=== PATIENT | male | born 1965 | race Caucasian/White ===

== ENCOUNTER 2017-07-29 10:06 | Emergency (ER) | payer OTHER, SELFPAY ==
[2017-07-29] VITALS (15 sets, daily range): BP systolic 101–127; BP diastolic 67–101; PULSE 79–140; RESP 11–23; TEMP 36.7; O2SAT 94–99
--- NOTE | 2017-07-29 10:21 | ED_ITS ---
HPI - Chest Pain General Chief Complaint: Chest Pain Stated Complaint: CHEST PRESSURE Time Seen by Provider: 07/29/17 10:21 Source: patient and family Mode of arrival: ambulatory Limitations: no limitations History of Present Illness HPI narrative: 52-year-old male presents with mild chest discomfort, palpitations, mild nausea and dizziness that began at 4:00 a.m. shortly after he awakened. He states it feels like atrial fibrillation. It happened previously to him about 5 years ago, when he reports his heart rate was elevated above 200 and he required a cardioversion. This morning he tried to cough and tried some Valsalva maneuvers without success. Has previous episode of AFib he had a subsequent angiogram which reportedly returned normal. He was started on omeprazole, because they told him his esophagus could have irritated his heart. He is being treated with medications for blood pressure and diabetes. He is not on a blood thinner. He rates his chest pain at 2/10 and states it feels like more of a mild discomfort. Denies diaphoresis or shortness of breath. Related Data Home Medications Medication Instructions Recorded Confirmed hydrochlorothiazide 25 mg PO QDAY #0 09/21/16 07/29/17 liraglutide [Victoza 2-Lanre] 1.8 mg SQ QAM #0 09/21/16 07/29/17 losartan 50 mg PO QDAY #0 09/21/16 07/29/17 melatonin 20 mg PO HS PRN #0 09/21/16 07/29/17 metformin [Glucophage] 2 tab PO BID #0 09/21/16 07/29/17 omeprazole 20 mg PO PRN PRN #0 09/21/16 07/29/17 Previous Rx's Medication Instructions Recorded aspirin 81 mg PO BID #60 tab 10/14/16 Allergies Allergy/AdvReac Type Severity Reaction Status Date / Time Penicillins [PENICILLINS] Allergy RASH Verified 07/29/17 10:22 Review of Systems Review of Systems All systems reviewed & are unremarkable except as noted in HPI and below Constitutional Denies chills, Denies fever(s), Denies lethargy and Denies weakness Eyes Denies change in vision, Denies eye discharge, Denies irritation and Denies loss of vision ENT Ears, Nose, Mouth, and Throat: Denies change in voice, Denies neck pain and Denies sore throat Cardiovascular Reports chest pain, Denies irregular heart rhythm, Reports lightheadedness, Reports palpitations, Denies dyspnea, Denies dyspnea on exertion and Denies orthopnea Respiratory Denies cough, Denies dyspnea, Denies dyspnea on exertion and Denies wheezing Gastrointestinal Gastrointestinal: Denies abdominal pain, Denies change in bowel habits, Denies diarrhea, Reports nausea and Denies vomiting Genitourinary Denies hematuria, Denies flank pain, Denies urinary incontinence and Denies urinary urgency Musculoskeletal Denies neck pain Integumentary/Breasts Denies pruritus, Denies erythema, Denies rash and Denies wounds Neurologic Denies confusion, Denies loss of vision and Denies weakness Psychiatric Denies anxiety, Denies confusion, Denies depression, Denies homicidal ideation and Denies suicidal ideation Endocrine Reports palpitations Hematologic/Lymphatic Denies easy bruising Allergic/Immunologic Denies wheezing [facility] Social History Smoking Status: Never smoker Exam Initial Vital Signs Initial Vital Signs: Vital Signs Temperature 98.0 F 07/29/17 10:10 Pulse Rate 140 H 07/29/17 10:10 Respiratory Rate 20 07/29/17 10:10 Blood Pressure 120/78 07/29/17 10:10 Pulse Oximetry 98 07/29/17 10:10 Const General: cooperative and well developed Nutritional Appearance: well nourished Orientation: alert, awake, oriented x3 and not confused [facility] Head: normocephalic and atraumatic Ears: external ears normal and TM's normal bilaterally Nose: external nose normal and No nasal discharge Face and sinus: sinuses nontender, face symmetric, no sinus tenderness and No dry mucous membranes Mouth: oral mucosae normal and moist mucous membranes Teeth and gingiva: dentition normal Throat: tonsils normal and uvula midline Eyes General: appearance normal, both eyes and all related structures Eyelids: eyelids normal Conjunctivae: conjunctivae normal Sclera: sclerae normal Pupils: PERRL EOM: EOM intact bilaterally Neck Neck: normal visual inspection, trachea midline, No lymphadenopathy, No midline deformity and No JVD Lymphatic: No lymphedema Chest Chest: normal inspection of the chest Resp Effort & Inspection: normal respiratory effort, able to speak in complete sentences, no respiratory distress and no use of accessory muscles Auscultation: clear to auscultation bilaterally, no rales, no rhonchi and no wheezes Cardio Rhythm: abnormal rhythm (Tachycardia) irregularly irregular Heart Sounds: no click, no gallops, no murmurs and no rubs Pulses: normal peripheral pulses GI Inspection: non-distended Palpation: soft, no hepatosplenomegaly, No guarding, No pulsatile mass and No tender Auscultation: normal bowel sounds Back/Spine/Pelvis Back: No CVA tenderness Cervical Spine: cervical ROM normal and No pain with cervical ROM Thoracic/Lumbar Spine: thoracic and lumbar spine normal to inspection Skin General: no rashes or lesions noted, No jaundice and No petechiae Neuro General: alert, oriented x3, gait normal and no focal motor deficits Speech: speech normal Extrem General: full ROM, no clubbing, cyanosis or edema, no pedal edema and no calf tenderness Psych Appearance: well kempt Mental Status: mental status grossly normal Attitude: cooperative Thought Content: normal and suicidality Judgment: judgment good Procedures Procedural Sedation Indication: cardioversion Presedation Evaluation: ASA Class: II Mallampati Airway Classification: Class II Preparation: security monitor applied, pulse oximeter, capnometry used, suction/ airway equipment at bedside and IV secured IV Propofol dose (mg): 160 ED Sedation Level: Moderate (Concious) Patient Tolerated Procedure: Well and No complications Complications: none Additional Comments: Biphasic cardioversion at 100 joules was successful on the 1st attempt. Repeat EKG shows sinus rhythm Course Orders Ordered: ED Orders 07/29/17 10:17 Complete Blood Count AUTO DIFF Stat Comprehensive Metabolic Panel Stat Lipase Stat Thyroid Stimulating Hormone Stat Troponin with CK Cardiac Panel Stat 07/29/17 10:23 XR chest 1V Stat 07/29/17 12:18 Troponin I Stat Discontinued Medications Aspirin (Aspirin Chew) 324 mg PO NOW ONE Stop: 07/29/17 10:24 Last Admin: 07/29/17 10:35 Dose: 243 mg Diltiazem HCl (Cardizem) 20 mg IV NOW ONE Stop: 07/29/17 10:30 Last Admin: 07/29/17 10:31 Dose: 20 mg Propofol (Diprivan) 100 mg IV NOW ONE Stop: 07/29/17 10:50 Last Admin: 07/29/17 11:14 Dose: 100 mg Propofol (Diprivan) 60 mg IV NOW ONE Stop: 07/29/17 11:23 Last Admin: 07/29/17 11:22 Dose: 60 mg Reevaluation(s) Reevaluation #1: Patient feeling better. Reviewed plan for repeat troponin and need for close follow-up and likely echocardiogram. Time: 11:50 Vital Signs - 8 hr 07/29/17 10:10 07/29/17 10:14 07/29/17 10:22 Temperature 98.0 F 98.0 F Pulse Rate 140 H 140 H 138 H Respiratory Rate 20 20 23 Blood Pressure 120/78 Blood Pressure [Left Arm] 127/101 H 120/78 Pulse Oximetry 98 98 99 07/29/17 10:45 07/29/17 11:00 07/29/17 11:16 Temperature Pulse Rate 102 H 96 H 124 H Respiratory Rate 15 21 21 Blood Pressure Blood Pressure [Left Arm] 117/74 109/78 110/79 Pulse Oximetry 98 97 96 07/29/17 11:26 07/29/17 11:36 07/29/17 11:42 Temperature Pulse Rate 94 H 87 81 Respiratory Rate 15 19 16 Blood Pressure Blood Pressure [Left Arm] 110/69 110/74 110/74 Pulse Oximetry 94 97 97 07/29/17 11:47 07/29/17 12:08 07/29/17 12:31 Temperature Pulse Rate 120 H 80 79 Respiratory Rate 22 13 11 L Blood Pressure Blood Pressure [Left Arm] 105/67 101/71 Pulse Oximetry 97 97 07/29/17 13:06 Temperature Pulse Rate 86 Respiratory Rate 12 Blood Pressure Blood Pressure [Left Arm] 107/80 Pulse Oximetry 97 MDM - Chest Pain Lab Data Result diagrams: 07/29/17 10:17 07/29/17 10:17 Lab Results 07/29/17 07/29/17 07/29/17 Range/Units 10:17 10:17 10:17 WBC 10.4 (4.5-11.0) X10^3/uL RBC 4.79 (4.5-5.9) X10^6/uL Hgb 15.3 (13.5-17.5) g/dL Hct 44.6 (41-53) % MCV 93.0 (80-100) fL MCH 32.0 (26-34) PG MCHC 34.4 (30-36) % RDW 12.8 (11.6-14.8) % Plt Count 246 (150-400) X10^3/uL Neut % (Auto) 56.9 (50-75) % Lymph % (Auto) 32.6 (25-40) % [place] % (Auto) 8.2 (3-14) % Eos % (Auto) 1.8 L (2-4) % Baso % (Auto) 0.5 (0-2) % Neut # (Auto) 5900 (3852-2883) /uL Sodium 138 (137-145) mmol/L Potassium 4.3 (3.4-5.1) mmol/L Chloride 96 L (98-107) mmol/L Carbon Dioxide 29 (22-32) mmol/L BUN 18 (9-20) mg/dL Creatinine 0.80 (0.66-1.25) mg/dL Estimated GFR > 60.0 (>60) mL/min BUN/Creatinine Ratio 22.5 H (6-22) Glucose 369 H (70-100) mg/dL Calcium 9.9 (8.4-10.2) mg/dL Total Bilirubin 0.6 (0.2-1.3) mg/dL AST 31 (17-59) IU/L ALT 43 (21-72) IU/L Alkaline Phosphatase 157 H (38-126) U/L Total Creatine Kinase 151 (55-170) U/L CK-MB (CK-2) 1.75 (<2.37) ng/mL CK-MB (CK-2) Rel Index 1.2 L (1.5-5.0) % Troponin I < 0.012 (0.01-0.034) ng/mL Total Protein 7.8 (6.3-8.2) g/dL Albumin 4.3 (3.5-5.0) g/dL Globulin 3.5 (1.7-4.1) g/dL Albumin/Globulin Ratio 1.2 (1.0-2.8) Lipase 170 (23-300) U/L TSH 1.17 (0.47-4.68) uIU/mL 07/29/17 Range/Units 12:18 WBC (4.5-11.0) X10^3/uL RBC (4.5-5.9) X10^6/uL Hgb (13.5-17.5) g/dL Hct (41-53) % MCV (80-100) fL MCH (26-34) PG MCHC (30-36) % RDW (11.6-14.8) % Plt Count (150-400) X10^3/uL Neut % (Auto) (50-75) % Lymph % (Auto) (25-40) % [place] % (Auto) (3-14) % Eos % (Auto) (2-4) % Baso % (Auto) (0-2) % Neut # (Auto) (8481-4820) /uL Sodium (137-145) mmol/L Potassium (3.4-5.1) mmol/L Chloride (98-107) mmol/L Carbon Dioxide (22-32) mmol/L BUN (9-20) mg/dL Creatinine (0.66-1.25) mg/dL Estimated GFR (>60) mL/min BUN/Creatinine Ratio (6-22) Glucose (70-100) mg/dL Calcium (8.4-10.2) mg/dL Total Bilirubin (0.2-1.3) mg/dL AST (17-59) IU/L ALT (21-72) IU/L Alkaline Phosphatase (38-126) U/L Total Creatine Kinase (55-170) U/L CK-MB (CK-2) (<2.37) ng/mL CK-MB (CK-2) Rel Index (1.5-5.0) % Troponin I < 0.012 (0.01-0.034) ng/mL Total Protein (6.3-8.2) g/dL Albumin (3.5-5.0) g/dL Globulin (1.7-4.1) g/dL Albumin/Globulin Ratio (1.0-2.8) Lipase (23-300) U/L TSH (0.47-4.68) uIU/mL Imaging Data Chest x-ray: Radiologist's impression: PROCEDURE: XR CHEST 1V INDICATIONS: 52 year-old male with atrial fibrillation and palpitations. TECHNIQUE: One view of the chest was acquired. COMPARISON: [facility], , CHEST 1VW (PORTABLE), 04/12/2011, 22:39. FINDINGS: Surgical changes and devices: None. Lungs and pleura: No pleural effusions or pneumothorax. Lungs are clear. Lung volumes are decreased. Mediastinum: Mediastinal contours appear normal. Heart size is normal. Bones and chest wall: No suspicious bony lesions. There is bilateral acromioclavicular joint degeneration. Overlying soft tissues appear unremarkable. IMPRESSION: Decreased lung volumes, without acute cardiopulmonary disease. Dictated by: Ej Beltran M.D. on 07/29/2017 at 10:35 Approved by: Ej Beltran M.D. on 07/29/2017 at 10:36 ECG Data Attestation: I personally reviewed and interpreted this ECG as follows: Prior ECG tracings: available for review Interpretation: EKG performed at 10:10 a.m. shows atrial fibrillation with rapid ventricular response, rate of 138. No ST elevation or depression noted. When compared with 10/05/2016, atrial fibrillation has replaced sinus rhythm EKG repeated at 1129 shows sinus rhythm with a rate of 89. No ST elevation or depression. No ischemia. When compared with previous sinus rhythm has replaced atrial fibrillation MDM Narrative Medical decision making narrative: 52-year-old male with history of diabetes presents with atrial fibrillation with rapid ventricular response that started acutely at around 4:00 a.m. this morning. He was not medically unstable but was significantly uncomfortable. As he had been in atrial fibrillation for less than 48 hr, he was cardioverted successfully here. He was monitored for approximately 2 hr after cardioversion and repeat troponin was checked returning negative. No obvious triggers for his atrial fibrillation or noted. His chads Vasc score is 0 so he does not need anticoagulation. Advised follow- up with PCP and echocardiogram might be of value. TSH was negative here. Return precautions were given. Discharge Plan Departure Patient Disposition: Home, Self-Care Clinical Impression: Atrial fibrillation with rapid ventricular response, Chest pain, Hyperglycemia Instructions: DI for Atrial Fibrillation Activity Restrictions/Additional Instructions: Thank you for trusting as with your care today. You were successfully cardioverted back to sinus rhythm. No cause for your atrial fibrillation was identified, but you need to have an echocardiogram in follow-up and potentially other tests as determined by your primary care provider and possibly a electrical continuity inspector. Return to the ER for new or worsening symptoms. See your primary care provider within 1 week for re-evaluation. Prescriptions: No Action metformin [Glucophage] 500 MG tablet 2 tab PO BID Qty: 0 RF: 0 liraglutide [Victoza 2-Lanre] 0.6 MG/0.1 ML pen injector 1.8 mg SQ QAM Qty: 0 RF: 0 losartan 50 MG tablet 50 mg PO QDAY Qty: 0 RF: 0 hydrochlorothiazide 25 MG tablet 25 mg PO QDAY Qty: 0 RF: 0 melatonin 10 MG capsule 20 mg PO HS PRN (Reason: Sleep) Qty: 0 RF: 0 omeprazole 20 MG capsule,delayed release(DR/EC) 20 mg PO PRN PRN (Reason: Acid Reflux) Qty: 0 RF: 0 aspirin 81 MG tablet,delayed release (DR/EC) 81 mg PO BID Qty: 60 RF: 0
[2017-07-29] MEDS: dilTIAZem 25 MG/5 ML SDV 20 MG IV (10:31)
[2017-07-29 10:33] LABS: Add Manual Diff / Slide Review NO; Basophils Percent Auto 0.5 % (0-2); Eosinophils Percent Auto 1.8 % (2-4); Hematocrit 44.6 % (41-53); Hemoglobin 15.3 g/dL (13.5-17.5); Lymphocytes Percent Auto 32.6 % (25-40); Mean Corpuscular HGB Conc 34.4 % (30-36); Monocytes Percent Auto 8.2 % (3-14); Neutrophils Absolute Auto 5900 /uL (3000-5900); Neutrophils Percent Auto 56.9 % (50-75); Platelet Count 246 X10^3/uL (150-400); Red Blood Cell Count 4.79 X10^6/uL (4.5-5.9); Red Cell Distribution Width 12.8 % (11.6-14.8); White Blood Cell Count 10.4 X10^3/uL (4.5-11.0)
[2017-07-29] MEDS: ASPIRIN 81 MG TAB 324 MG PO (10:35)
--- NOTE | 2017-07-29 10:37 | PC.NURSE ---
reports, woke up with afib at 4am, with deep breathing with chest preassure 04/03.
[2017-07-29 10:41] LABS: Alanine Aminotransferase 43 IU/L (21-72); Albumin 4.3 g/dL (3.5-5.0); Albumin Globulin Ratio 1.2 (1.0-2.8); Alkaline Phosphatase 157 U/L (38-126); Aspartate Aminotransferase 31 IU/L (17-59); BUN Creatinine Ratio 22.5 (6-22); Bilirubin Total 0.6 mg/dL (0.2-1.3); Blood Urea Nitrogen 18 mg/dL (9-20); Calcium 9.9 mg/dL (8.4-10.2); Carbon Dioxide 29 mmol/L (22-32); Chloride 96 mmol/L (98-107); Creatine Kinase 151 U/L (55-170); Estimated Glomerular Filt Rate > 60.0 mL/min (>60); Globulin 3.5 g/dL (1.7-4.1); Glucose 369 mg/dL (70-100); HEMOLYSIS 17 (0-50); Lipase 170 U/L (23-300); Potassium 4.3 mmol/L (3.4-5.1); Sodium 138 mmol/L (137-145); Total Protein 7.8 g/dL (6.3-8.2)
[2017-07-29 10:57] LABS: CKMB % Relative Index 1.2 % (1.5-5.0); Creatine Kinase MB 1.75 ng/mL (<2.37)
[2017-07-29 10:59] LABS: Troponin I < 0.012 ng/mL (0.01-0.034)
[2017-07-29] MEDS: PROPOFOL 200 MG/20 ML VIAL 100 MG IV (11:14)
[2017-07-29 11:19] LABS: Thyroid Stimulating Hormone 1.17 uIU/mL (0.47-4.68)
[2017-07-29] MEDS: PROPOFOL 200 MG/20 ML VIAL 60 MG IV (11:22)
--- NOTE | 2017-07-29 11:44 | PC.NURSE ---
AT 1122 cardiovertion sync, 100joules x1, pt converted to nsr , pt recieved total 160mg propofol iv by dr saleh, pt with good response, and pt recovered easily. spouse at bs. now pt states, feeling much better and I didnt remember anything
[2017-07-29 12:49] LABS: Troponin I < 0.012 ng/mL (0.01-0.034)
== END 2017-07-29 13:52 | disposition home or self-care (01) ==
PROVIDERS: Emergency Provider Emergency Medicine; PCP Specialist
DX: I48.91 Unspecified atrial fibrillation (principal); R07.9 Chest pain, unspecified; R73.9 Hyperglycemia, unspecified
CPT/HCPCS: 36415; 36591; 71045; 80053; 82550; 82553; 83690; 84443; 84484; 85025; 92960; 93005; 93041; 94770; 99152; 99285; J2704

== ENCOUNTER 2018-04-05 02:16 | Observation (INO) | payer OTHER, SELFPAY ==
[2018-04-05] VITALS (13 sets, daily range): BP systolic 115–145; BP diastolic 71–90; PULSE 70–94; RESP 12–20; TEMP 36.5–36.9; O2SAT 93–97; BMI 33.0
--- NOTE | 2018-04-05 02:18 | DI.RAD.S_ITS ---
PROCEDURE: XR CHEST 1V INDICATIONS: chest pain TECHNIQUE: One view of the chest was acquired. COMPARISON: [facility], CR, XR CHEST 1V, 07/29/2017, 10:28. FINDINGS: Surgical changes and devices: None. Lungs and pleura: Lungs are clear. No pleural effusions or pneumothorax. Mediastinum: Mediastinal contours appear normal. Heart size is normal. Bones and chest wall: No suspicious bony lesions. Overlying soft tissues appear unremarkable. IMPRESSION: No acute disease. Dictated by: Dedrick Arroyo M.D. on 04/05/2018 at 7:37 Approved by: Dedrick Arroyo M.D. on 04/05/2018 at 7:38
--- NOTE | 2018-04-05 02:19 | ED_ITS ---
HPI - Chest Pain General Chief Complaint: Chest Pain Stated Complaint: chest pain sudden onset raidates to back Time Seen by Provider: 04/05/18 02:18 Source: patient Mode of arrival: ambulatory Limitations: no limitations History of Present Illness HPI narrative: Patient is a 52-year-old male with history of paroxysmal atrial fibrillation and [id number] diabetes here for evaluation of a sudden onset of bilateral lower chest pain that radiates to his back. Patient states that it feels like somebody is lifting him up from under his ribcage. Does radiate to his back. No shortness of breath. He states that he does feel like that maybe he had similar symptoms yesterday with a went away on his own. Has never had anything prior to that. Has not tried anything for symptoms. Does have nausea but no vomiting. Related Data Home Medications Medication Instructions Recorded Confirmed hydrochlorothiazide 25 mg PO QDAY #0 09/21/16 07/29/17 liraglutide [Victoza 2-Lanre] 1.8 mg SQ QAM #0 09/21/16 07/29/17 losartan 50 mg PO QDAY #0 09/21/16 07/29/17 melatonin 20 mg PO HS PRN #0 09/21/16 07/29/17 metformin [Glucophage] 2 tab PO BID #0 09/21/16 07/29/17 omeprazole 20 mg PO PRN PRN #0 09/21/16 07/29/17 insulin glargine 28 unit SUBCUT DAILY 04/05/18 04/05/18 Allergies Allergy/AdvReac Type Severity Reaction Status Date / Time Penicillins [PENICILLINS] Allergy RASH Verified 07/29/17 10:22 Review of Systems Constitutional Denies fever(s) Cardiovascular Reports chest pain and Denies dyspnea Respiratory Denies cough and Denies dyspnea Gastrointestinal Gastrointestinal: Denies abdominal pain, Reports nausea and Denies vomiting Musculoskeletal Reports back pain, Denies myalgias and Denies arthralgias Integumentary/Breasts Denies rash Neurologic Denies behavioral changes Psychiatric Denies behavioral changes Hematologic/Lymphatic Denies easy bleeding and Denies easy bruising PFSH Medical History Diabetes (Acute) Gastroesophageal reflux disease (Acute) Hypertension (Acute) Paroxysmal atrial fibrillation (Acute) Social History Smoking Status: Never smoker Social History Smoking Status: Never smoker Exam Initial Vital Signs Initial Vital Signs: Vital Signs Temperature 97.7 F 04/05/18 02:18 Pulse Rate 88 04/05/18 02:18 Respiratory Rate 20 04/05/18 02:18 Blood Pressure 134/88 04/05/18 02:18 Pulse Oximetry 96 04/05/18 02:18 Const General: cooperative, comfortable, well developed, well groomed and No acute distress Orientation: alert, awake and oriented x3 HENMT Head: normal to inspection and normocephalic Chest Chest: normal inspection of the chest Resp Effort & Inspection: normal respiratory effort Auscultation: clear to auscultation bilaterally Cardio Rate: regular rate Rhythm: regular rhythm Pulses: radial pulses present GI Inspection: non-distended Palpation: soft, No firm and No tender Skin Lesions: no lesions Rashes: no rashes Neuro General: alert, awake and oriented x3 Extrem General: normal to inspection and capillary refill normal Psych Appearance: grossly normal and well kempt Scores HEART Score Heart Score history: Slightly Suspicious Heart Score EKG: Normal Heart Score Age: 45-64 years old Heart Score risk factors: 1-2 risk factors Heart Score troponin: < or = to normal limit Heart Score Total: 2 Course Orders Ordered: ED Orders 04/05/18 02:18 XR chest 1V Stat EKG-12 Lead Stat 04/05/18 02:25 CT angio chest abdomen Stat 04/05/18 02:30 Basic Metabolic Panel Stat Complete Blood Count AUTO DIFF Stat Hepatic (Liver) Panel Stat Lipase Stat Partial Thromboplastin Time Stat Prothrombin Time INR Stat Troponin I Stat 04/05/18 03:48 US abdomen complete Stat 04/05/18 05:31 Consult to General Surgery Routine Sodium Chloride (Normal Saline 0.9%) 1,000 mls @ 125 mls/hr IV CONT SANCHO Ceftriaxone Sodium/Dextrose (Rocephin) 1 gm in 50 mls @ 100 mls/hr IV NOW ONE Stop: 04/05/18 05:57 Morphine Sulfate (Morphine) 4 mg IV Q4HR PRN PRN Reason: Pain, Mild (1-3) Ondansetron HCl (Zofran) 4 mg IV Q4HR PRN PRN Reason: Nausea And Vomiting Discontinued Medications Aspirin (Aspirin Chew) 324 mg PO NOW ONE Stop: 04/05/18 02:25 Last Admin: 04/05/18 02:30 Dose: 324 mg Sodium Chloride (Normal Saline 0.9%) 1,000 mls @ 1,000 mls/hr IV BOLUS ONE Stop: 04/05/18 03:23 Last Admin: 04/05/18 02:30 Dose: 1,000 mls/hr Morphine Sulfate (Morphine) 4 mg IV NOW ONE Stop: 04/05/18 02:25 Last Admin: 04/05/18 02:30 Dose: 4 mg Ondansetron HCl (Zofran) 4 mg IV NOW ONE Stop: 04/05/18 02:34 Last Admin: 04/05/18 02:36 Dose: 4 mg Vital Signs - 8 hr 04/05/18 02:18 04/05/18 02:40 04/05/18 03:09 Temperature 97.7 F Pulse Rate 88 93 H 94 H Respiratory Rate 20 18 15 Blood Pressure 134/88 Blood Pressure [Left Arm] 132/74 135/81 Pulse Oximetry 96 97 97 04/05/18 04:00 04/05/18 05:07 Temperature Pulse Rate 72 71 Respiratory Rate 12 14 Blood Pressure Blood Pressure [Left Arm] 118/73 128/78 Pulse Oximetry 97 94 MDM - Chest Pain Lab Data Attestation: I reviewed the patient's lab results. Result diagrams: 04/05/18 02:30 04/05/18 02:30 Lab Results 04/05/18 04/05/18 04/05/18 Range/Units 02:30 02:30 02:30 WBC 9.7 (4.5-11.0) X10^3/uL RBC 4.73 (4.5-5.9) X10^6/uL Hgb 14.9 (13.5-17.5) g/dL Hct 45.4 (41-53) % MCV 95.9 (80-100) fL MCH 31.6 (26-34) PG MCHC 33.0 (30-36) % RDW 13.4 (11.6-14.8) % Plt Count 206 (150-400) X10^3/uL Neut % (Auto) 61.5 (50-75) % Lymph % (Auto) 27.6 (25-40) % [place] % (Auto) 8.6 (3-14) % Eos % (Auto) 1.7 L (2-4) % Baso % (Auto) 0.6 (0-2) % Neut # (Auto) 6000 (4555-6512) /uL Lymph # (Auto) 2700 (8581-7272) /uL [place] # (Auto) 800 (0-900) /uL Eos # (Auto) 200 (0-450) /uL Baso # (Auto) 100 (0-100) /uL PT 11.0 (10.1-12.7) SECONDS INR 1.0 (0.9-1.3) APTT 30 (26.4-36.2) SECONDS Sodium 139 (137-145) mmol/L Potassium 3.9 (3.4-5.1) mmol/L Chloride 98 (98-107) mmol/L Carbon Dioxide 28 (22-32) mmol/L BUN 20 (9-20) mg/dL Creatinine 0.80 (0.66-1.25) mg/dL Estimated GFR > 60.0 (>60) mL/min BUN/Creatinine Ratio 25.0 H (6-22) Glucose 150 H (70-100) mg/dL Calcium 9.6 (8.4-10.2) mg/dL Total Bilirubin 1.1 (0.2-1.3) mg/dL Conjugated Bilirubin 0.0 (0.0-0.3) md/dL Unconjugated Bilirubin 0.5 (0.0-1.1) mg/dL AST 191 H (17-59) IU/L ALT 138 H (21-72) IU/L Alkaline Phosphatase 100 (38-126) U/L Troponin I < 0.012 (0.01-0.034) ng/mL Total Protein 8.0 (6.3-8.2) g/dL Albumin 4.5 (3.5-5.0) g/dL Globulin 3.5 (1.7-4.1) g/dL Albumin/Globulin Ratio 1.3 (1.0-2.8) Lipase 187 (23-300) U/L Imaging Data Chest x-ray: Attestation: I personally reviewed and interpreted this imaging study as follows: My impression: No focal consolidations Normal size heart No pneumothorax CT abdomen pelvis with contrast: Radiologist's impression: Distended gallbladder with mild gallbladder wall thickening and pericholecystic fat induration. Findings likely represent acute cholecystitis. Mild bile duct dilation. Abdominal aorta is normal in caliber without dissection Multiple mildly dilated fluid-filled loops of small bowel without a transition point, most consistent with mild ileus. Right upper quadrant ultrasound: Radiologist's impression: Cholelithiasis with gallbladder wall thickening and a positive sonographic Kelly sign. Findings most consistent with acute c holecystitis. Common bile duct dilation to 9 mm. Mild gallbladder wall thickening measures 4.5 mm. Diffuse fatty infiltration of the liver ECG Data Attestation: I personally reviewed and interpreted this ECG as follows: Prior ECG tracings: not available for review Interpretation: Sinus rhythm Ventricular rate 80 for Normal axis Normal QRS Normal QTC no ST T wave changes MDM Narrative Medical decision making narrative: Patient's last meal was before midnight. He was given aspirin upon arrival. Initially given his back pain and epigastric and bilateral pain and the sudden onset the workup was initiated for cardiac or aortic dissection workup. Patient's EKG was unremarkable. The CT scan to [facility] for dissection revealed a dilated gallbladder and other findings concerning for cholecystitis with associated ileus. Right upper quadrant ultrasound confirmed this. Patient did feel better after morphine and Zofran. Discussed the case with Dr. Dubois with General surgery who will admit the caitlyn hamilton. Discussed admission with the patient who expressed understanding and agreement. Patient does have an allergy to penicillin so he was given Rocephin here in the emergency department. Discharge Plan Departure Patient Disposition: Admitted as Observation Clinical Impression: Acute cholecystitis
--- NOTE | 2018-04-05 02:25 | DI.CT.S_ITS ---
PROCEDURE: CT ANGIO CHEST ABDOMEN INDICATIONS: Sudden onset chest pain radiating to back TECHNIQUE: Precontrast 5 mm thick sections acquired from the lung apices to the iliac crests. After the administration of intravenous contrast, 2.5 mm thick sections again acquired from the lung apices to the iliac crests. 10 mm maximum intensity projection (MIP) oblique sagittal and coronal reformats were then acquired. For radiation dose reduction, the following was used: automated exposure control. COMPARISON: [facility], US, US ABDOMEN COMPLETE, 04/05/2018, 4:42. [facility], CR, XR CHEST 1V, 04/05/2018, 2:23. FINDINGS: Image quality: Excellent. AORTA: Noncontrast images demonstrate no evidence of intramural hematoma. The aorta is normal in caliber and contour without intimal flaps to suggest dissection. There is a three-vessel arch that demonstrates conventional branching. The visualized great vessels appear normal in caliber and patent. The celiac, superior mesenteric, and intramesenteric arteries appear patent. There are single renal arteries bilaterally which also appear patent. CHEST: Lungs and pleura: There is mild dependent atelectasis. No pleural effusions or pneumothorax. Central and peripheral airways are patent and normal in caliber. Mediastinum: Heart size is normal. No pericardial effusion. No mediastinal or hilar adenopathy by size criteria. Central pulmonary arteries are normal in size. Esophagus is normal in caliber. No hiatal hernias. Bones and chest wall: No axillary adenopathy by size criteria. No suspicious bony lesions. No vertebral body compression fractures. ABDOMEN: Solid organs: Evaluation of the liver demonstrates no focal hepatic lesions. The gallbladder is distended with gallbladder wall thickening and enhancement. There is mild associated pericholecystic fat stranding. No calcified gallstones identified but there are noncalcified gallstones on the concurrent ultrasound study. There is biliary duct dilatation measuring up to approximately 9 mm. Noncalcified common duct stones identified. There is gradual tapering distally into the ampulla. Pancreas enhances normally without peripancreatic fat stranding or fluid collections. No pancreatic duct dilatation. Spleen is normal in size and enhancement. No adrenal nodules. Both kidneys are normal in size and enhancement, without hydronephrosis. Peritoneum and bowel: No free fluid or air. Visualized bowel loops are normal in caliber and wall thickness. Nodes and vessels: No retroperitoneal or mesenteric adenopathy by size criteria. Inferior vena cava is normal in morphology. Bones: No suspicious bony lesions. No vertebral body compression fractures. Miscellaneous: No ventral hernias. IMPRESSION: 1. No evidence of aortic dissection. 2. Gallbladder distention with mild wall thickening and enhancement and pericholecystic fat stranding. Given the gallstones seen on the concurrent ultrasound study, the findings are compatible with acute cholecystitis. 3. Mild biliary duct dilatation raising the possibility of choledocholithiasis. No calcified obstructing stone visualized. Recommend correlation with laboratory values. Further evaluation may be obtained with MRCP if clinically indicated. Dictated by: Flakito Sampson M.D. on 04/05/2018 at 8:30 Approved by: Flakito Sampson M.D. on 04/05/2018 at 8:39
[2018-04-05] MEDS: SODIUM CHLORIDE 0.9% 1,000 ML 1000 ML IV (02:30)
[2018-04-05] MEDS: ASPIRIN 81 MG TAB 324 MG PO (02:30)
[2018-04-05] MEDS: MORPHINE 4 MG/ML INJ IV (02:30)
[2018-04-05] MEDS: ONDANSETRON 4 MG/2 ML INJ IV ×3 (02:36→16:20)
[2018-04-05 02:43] LABS: Add Manual Diff / Slide Review NO; Basophils Absolute Auto 100 /uL (0-100); Basophils Percent Auto 0.6 % (0-2); Eosinophils Absolute Auto 200 /uL (0-450); Eosinophils Percent Auto 1.7 % (2-4); Hematocrit 45.4 % (41-53); Hemoglobin 14.9 g/dL (13.5-17.5); Lymphocytes Absolute Auto 2700 /uL (1100-4500); Lymphocytes Percent Auto 27.6 % (25-40); Mean Corpuscular Hemoglobin 31.6 PG (26-34); Mean Corpuscular Volume 95.9 fL (80-100); Monocytes Absolute Auto 800 /uL (0-900); Monocytes Percent Auto 8.6 % (3-14); Neutrophils Absolute Auto 6000 /uL (1500-7000); Neutrophils Percent Auto 61.5 % (50-75); Platelet Count 206 X10^3/uL (150-400); Red Blood Cell Count 4.73 X10^6/uL (4.5-5.9); Red Cell Distribution Width 13.4 % (11.6-14.8); White Blood Cell Count 9.7 X10^3/uL (4.5-11.0)
[2018-04-05 02:47] LABS: Blood Urea Nitrogen 20 mg/dL (9-20); Calcium 9.6 mg/dL (8.4-10.2); Carbon Dioxide 28 mmol/L (22-32); Chloride 98 mmol/L (98-107); Estimated Glomerular Filt Rate > 60.0 mL/min (>60); Glucose 150 mg/dL (70-100); HEMOLYSIS 21 (0-50); PTT Partial Thromboplastin Tim 30 SECONDS (26.4-36.2); Potassium 3.9 mmol/L (3.4-5.1); Sodium 139 mmol/L (137-145)
[2018-04-05 02:59] LABS: Troponin I < 0.012 ng/mL (0.01-0.034)
[2018-04-05 03:24] LABS: Alanine Aminotransferase 138 IU/L (21-72); Albumin 4.5 g/dL (3.5-5.0); Albumin Globulin Ratio 1.3 (1.0-2.8); Alkaline Phosphatase 100 U/L (38-126); Aspartate Aminotransferase 191 IU/L (17-59); Bilirubin Total 1.1 mg/dL (0.2-1.3); Bilirubin Unconjugated 0.5 mg/dL (0.0-1.1); Globulin 3.5 g/dL (1.7-4.1); Lipase 187 U/L (23-300)
--- NOTE | 2018-04-05 03:48 | DI.US.S_ITS ---
PROCEDURE: US ABDOMEN COMPLETE INDICATIONS: RUQ US to eval for GB pathology TECHNIQUE: Real-time scanning was performed of the abdominal and retroperitoneal organs, with image documentation. COMPARISON: [facility], CT, CT ANGIO CHEST ABDOMEN, 04/05/2018, 2:30. FINDINGS: Liver: Liver is normal in size and homogeneous in echotexture. Gallbladder: 6.2 mm nonobstructing gallbladder calculus. Gallbladder wall is thickened measuring 4.5 mm. No pericholecystic fluid. Positive sonographic Kelly sign is indicated by the direct sales representative. Biliary ducts: Intrahepatic bile ducts are non-dilated. Extrahepatic bile duct caliber measures 8 point mm. Normal is 6-7 mm or less in diameter, or 10 mm or less post-cholecystectomy. Pancreas: Obscured by overlying bowel gas. Spleen: Spleen is normal in size and homogeneous in echotexture. Kidneys: Kidneys are normal in size and echotexture. Right kidney measures 11.4 cm long; left kidney measures 12.2 cm long. No hydronephrosis or nephrolithiasis. No solid masses. Aorta: Visualized aorta is normal in caliber at less than 3 cm. Iliacs: Proximal common iliac arteries are normal in caliber at less than 2.5 cm. IVC: Intrahepatic inferior vena cava is patent. Miscellaneous: No free abdominal fluid. IMPRESSION: 1. 6.2 mm mobile gallstone and the gallbladder wall is thickened suggesting developing acute cholecystitis. Recommend clinical correlation. Dictated by: Kj PERKINS Interpreted: Hetal Arango MD on 04/05/2018 at 10:17 Approved by: Hetal Arango M.D. on 04/05/2018 at 11:59
[2018-04-05] MEDS: CEFTRIAXONE 1 GM/50 ML FROZ.PIGGY IV (05:43)
[2018-04-05] MEDS: SODIUM CHLORIDE 0.9% 1,000 ML 125 ML IV (05:43)
--- NOTE | 2018-04-05 06:18 | PC.NURSE ---
Normal saline and ceftriaxone to continue in acute care
[2018-04-05] MEDS: MORPHINE 2 MG/ML INJ 4 MG IV (08:46)
[2018-04-05] MEDS: DEXTROSE 50 % IN WATER 25 GM/50 ML SYRINGE IV (12:17)
[2018-04-05] MEDS: ERTAPENEM 1 GM in SODIUM CHLORIDE 0.9% 100 ML 200 ML IV (15:00)
--- NOTE | 2018-04-05 15:07 | P.HP_ITS ---
History of Present Illness Date Patient Seen: 04/05/18 Time Patient Seen: 15:05 Chief complaint: chest pain sudden onset raidates to back Narrative: Pleasant 52-year-old gentleman who presented to the emergency room last evening complaining of epigastric and right upper quadrant pain. He reports that it feels like somebody is grabbing him by the ribs and picking him up out of the bed. This pain was associated with nausea but no vomiting. He denies any fever. He denies any yellowing of the skin or eyes. He thinks he had a similar episode a couple of days prior to this 1 that was not quite as severe and resolved without treatment. Patient History Medical History Diabetes (Acute) Gastroesophageal reflux disease (Acute) Hypertension (Acute) Paroxysmal atrial fibrillation (Acute) Social History household members: spouse Smoking Status: Never smoker Family & Social History Social History: household members spouse Prior Living Arrangements House Safety & Behavioral: Feels Safe in Current Yes Environment Suicidal Ideation Description None Suicide Plan Description No Plan Tobacco & Substance use: Smoking Status Never smoker alcohol intake frequency holiday/special occasion Substance Use Type does not use Meds Home Medications Medication Instructions Recorded Confirmed Type Victoza 2-Lanre 1.8 mg SQ QAM #0 09/21/16 04/05/18 History hydrochlorothiazide 25 mg PO QDAY #0 09/21/16 04/05/18 History losartan 50 mg PO QDAY #0 09/21/16 04/05/18 History melatonin 20 mg PO HS PRN #0 09/21/16 04/05/18 History metformin [Glucophage] 2 tab PO BID #0 09/21/16 04/05/18 History omeprazole 20 mg PO PRN PRN #0 09/21/16 04/05/18 History insulin glargine 28 unit SUBCUT DAILY 04/05/18 04/05/18 History Allergies Allergy/AdvReac Type Severity Reaction Status Date / Time Penicillins [PENICILLINS] Allergy RASH Verified 07/29/17 10:22 Review of Systems Review of Systems All systems reviewed & are unremarkable except as noted in HPI and below Exam Vital Signs (past 8 hours): - 04/05/18 08:08 04/05/18 12:00 Temperature 97.7 F 98.4 F Pulse Rate 70 74 Respiratory Rate 16 16 Blood Pressure 115/76 118/71 Pulse Oximetry 95 93 Oxygen Delivery Method Room Air Oxygen Flow Rate 0 Narrative Exam Narrative: Pleasant but uncomfortable gentleman HEENT: Normocephalic and atraumatic, pupils equal round reactive to light accommodation with anicteric sclera Lungs: Clear to auscultation bilaterally Heart: Regular rate and rhythm without murmur rub or gallop Abdomen: Soft, tender to palpation in the right upper quadrant, epigastric, and right flank. Some voluntary guarding. No peritoneal signs. Active bowel sounds. No umbilical or inguinal hernias appreciated. No other abdominal masses. Extremities: Warm and well perfused without edema Objective Labs Result Diagrams: 04/05/18 02:30 04/05/18 02:30 Labs: Laboratory Results - last 24 hr 04/05/18 04/05/18 04/05/18 02:30 02:30 02:30 WBC 9.7 RBC 4.73 Hgb 14.9 Hct 45.4 MCV 95.9 MCH 31.6 MCHC 33.0 RDW 13.4 Plt Count 206 Neut % (Auto) 61.5 Lymph % (Auto) 27.6 [place] % (Auto) 8.6 Eos % (Auto) 1.7 L Baso % (Auto) 0.6 Neut # (Auto) 6000 Lymph # (Auto) 2700 [place] # (Auto) 800 Eos # (Auto) 200 Baso # (Auto) 100 PT 11.0 INR 1.0 APTT 30 Sodium 139 Potassium 3.9 Chloride 98 Carbon Dioxide 28 BUN 20 Creatinine 0.80 Estimated GFR > 60.0 BUN/Creatinine Ratio 25.0 H Glucose 150 H Calcium 9.6 Total Bilirubin 1.1 Conjugated Bilirubin 0.0 Unconjugated Bilirubin 0.5 AST 191 H ALT 138 H Alkaline Phosphatase 100 Troponin I < 0.012 Total Protein 8.0 Albumin 4.5 Globulin 3.5 Albumin/Globulin Ratio 1.[address] [address] Ultrasound Report Signed Patient: Kishan Aleman MR#: [id number] : 1965 Acct:[id number] Age/Sex: 52 / M Date of Service: 04/05/18 Loc: 215-1 Accession Number: [id number] Procedure: US abdomen complete Ordering Provider: Bam Ray D.O. PROCEDURE: US ABDOMEN COMPLETE INDICATIONS: RUQ US to eval for GB pathology TECHNIQUE: Real-time scanning was performed of the abdominal and retroperitoneal organs, with image documentation. COMPARISON: [facility], CT, CT ANGIO CHEST ABDOMEN, 04/05/2018, 2:30. FINDINGS: Liver: Liver is normal in size and homogeneous in echotexture. Gallbladder: 6.2 mm nonobstructing gallbladder calculus. Gallbladder wall is thickened measuring 4.5 mm. No pericholecystic fluid. Positive sonographic Kelly sign is indicated by the corrections sergeant. Biliary ducts: Intrahepatic bile ducts are non-dilated. Extrahepatic bile duct caliber measures 8 point mm. Normal is 6-7 mm or less in diameter, or 10 mm or less post-cholecystectomy. Pancreas: Obscured by overlying bowel gas. Spleen: Spleen is normal in size and homogeneous in echotexture. Kidneys: Kidneys are normal in size and echotexture. Right kidney measures 11.4 cm long; left kidney measures 12.2 cm long. No hydronephrosis or nephrolithiasis. No solid masses. Aorta: Visualized aorta is normal in caliber at less than 3 cm. Iliacs: Proximal common iliac arteries are normal in caliber at less than 2.5 cm. IVC: Intrahepatic inferior vena cava is patent. Miscellaneous: No free abdominal fluid. IMPRESSION: 1. 6.2 mm mobile gallstone and the gallbladder wall is thickened suggesting developing acute cholecystitis. Recommend clinical correlation. Dictated by: Kj Baker [facility] Interpreted: Hetal Arango MD on 04/05/2018 at 10:17 Approved by: Hetal Arango M.D. on 04/05/2018 at 11:59 Assessment & Plan Assessment Narrative: Pleasant 52-year-old gentleman who suffers from intermit tent AFib and type 2 diabetes. He has evidence of developing acute cholecystitis with a 6 mm gallstone lodged in the neck of the gallbladder. Plan Narrative: We have discussed the risks and benefits of laparoscopic cholecystectomy and the patient expressed a desire to complete the procedure prior to discharge. He will be maintained on antibiotics and the procedure scheduled for 745 in the morning. Quality VTE Deep Vein Thrombosis/Pulmonary Embolism Present on Admission: No
[2018-04-05] MEDS: HYDROMORPHONE PCA (6MG/30ML) 6 MG/30 ML PCA.VIAL IV (16:39)
[2018-04-05] MEDS: LOSARTAN 50 MG TABLET PO (18:30)
[2018-04-05] MEDS: LACTATED RINGERS 1,000 ML 42 ML IV (18:31)
[2018-04-05] MEDS: PANTOPRAZOLE 40 MG VIAL IV (18:31)
[2018-04-05] MEDS: INSULIN ASPART 100 UNIT/ML INSULN PEN SUBCUT (22:02)
[2018-04-06] VITALS (14 sets, daily range): BP systolic 111–135; BP diastolic 67–88; PULSE 64–94; RESP 12–18; TEMP 36.2–37.4; O2SAT 92–97; BMI 33.0
--- NOTE | 2018-04-06 | PATH_ITS ---
[facility] Accession Number: [id number] . 01 Material submitted: . GALLBLADDER AND CONTENTS . 02 Diagnosis: Gallbladder: Follicular cholecystitis. No calculi present. Negative for atypia and malignancy. Single benign reactive lymph node. MRV/04/08/2018 . 02 Electronically signed: . Alexis Jameson MD, Pathologist NPI- [id number] . 01 Gross description: . Received in formalin, labeled gallbladder w/contents, is an opened gallbladder (length-7.6 cm, diameter-2.7 cm) with nair-pink smooth shiny serosa and a patent cystic duct. A lymph node (0.6 x 0.5 x 0.5 cm) is identified. The lumen contains brown-green viscous bile and brown soft paste-like material. No calculi are present. The mucosa is bond smooth and flat. The wall is up to 0.1 cm in depth. No nodules, masses or lesions are identified. Section code: (A1) cystic duct resection margin and two serial sections from the body; (A2) two longitudinal sections from the fundus; (A3) one bisected lymph node. ([id number]) /MRV . 02 Pathologist provided ICD-10: K81.1 . 02 CPT . 284095 Performed at: 01 [facility] [address] [id number] MD Flakito Miguel MD Phone: [phone] Performed at: 02 [facility] [address] [place], [place] [id number] MD Liberty Frazier MD Phone: [phone]
--- NOTE | 2018-04-06 | PC.NURSE ---
Evening note: Kishan reported pain 7/10 at 1545, new order for [employer] Dilaudid 0.2/11/27 set up at that time. After a couple doses he said pain was a 3/10, able to relax. Reported zofran helped relieve nausea. Able to eat full liquids for dinner. VS stable tonight. 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 He remains Ox3 and uses call button appropriately for needs.
--- NOTE | 2018-04-06 00:43 | PC.NURSE ---
Patient is alert and oriented. Breath sounds CTA with RA sat of 95%; on continuous pulse oximeter. HRR. Denies nausea. Having 2/10 upper abdominal pain but states MATH INTERVENTIONIST is providing good pain control. BT present and abdomen is soft. Denies dysuria, frequency or urgency. Is independent with mobility. NPO after 0000 for impending a.m. surgery; patient verbalizes understanding. Fall risk score is low.
[2018-04-06] MEDS: LACTATED RINGERS 1,000 ML 42 ML IV (07:35)
[2018-04-06] MEDS: CEFOTETAN 2 GM/50 ML PIGGYBACK IV (08:15)
--- NOTE | 2018-04-06 08:38 | SUR.OPER ---
Supine on padded OR bed, head on pillow, safety belt at thigh, left arm padded and tucked at side. Right arm secured on padded arm oard <90 degrees abduction. Legs uncrossed. Padded footboard in place. Tape over blanket to secure lower legs.
[2018-04-06] MEDS: LIDOCAINE 1% W/EPI INJ 20 ML INJ (08:54)
[2018-04-06] MEDS: BUPIVACAINE 0.5% (PF) VIAL 30 ML INJ (08:55)
--- NOTE | 2018-04-06 09:18 | P.OP_ITS ---
Operative Date/Time/Diagnoses Date of procedure: 04/06/18 Time of procedure: 09:16 Pre-op diagnosis: Acute cholecystitis and cholelithiasis Post-op diagnosis: same Procedure & Clinicians Procedure: Laparoscopic cholecystectomy Same procedure as scheduled: Yes Indications: Acute cholecystitis Surgeon: Cherry Dubois Click Yes if Unassisted: Yes Anesthesia Type: General (Dr. Riley) and Local Operative Notes Findings: Acute cholecystitis with thickening and significant edema of the gallbladder wall and distention. Closure Type: primary Specimen(s): other (Gallbladder to pathology in formalin) Estimated Blood Loss (mL): 20 Procedure in detail: After obtaining informed consent, the patient was brought to the operating room and placed in the supine position on the operating table. Following successful induction of general endotracheal anesthesia, appropriate padding of all bony prominences, and placement of appropriate monitors, the abdomen was prepped and draped in a standard surgical fashion. A timeout was held per SCOAP protocol. Following infiltration with local anesthetic to create a field block, an incision was created superior to the umbilicus and carried down through the skin and subcutaneous tissue to reveal the fascia below. 2-0 Vicryl retention negrete tures are placed on either side of the midline and the abdomen was entered under direct vision using a 15 blade scalpel. A 10 mm blunt trocar was placed in the abdominal cavity and it was insufflated to 15 mm of Hg pressure. The patient was placed in reverse Trendelenburg position with the left side rotated toward the floor. A second 5 mm trocar was placed in the midepigastrium and 2 more in the right upper quadrant, again after infiltration with local anesthetic and under direct vision with the camera. The gallbladder was grasped in the fundus and elevated up over the liver. This revealed the cholecysto-hepatoduodenal ligament. The cystic duct and artery were carefully identified with gentle dissection. As we were able to clearly see the structures as well as the junction with the common duct; we elected not to perform a cholangiogram. 3 clips were placed proximally on the cystic duct and one distally. The duct was divided between these clips. 2 clips were placed proximally on the cystic artery and one distally. The artery was divided between these clips. The gallbladder was then liberated from its bed in the liver using Bovie cautery. It was placed in an Endoscopic bag and removed via the umbilical port. The camera was returned to the abdominal cavity and the operative site examined carefully. Hemostasis was obtained with cautery. The abdomen was irrigated copiously with warm saline solution and then aspirated free of all particulate matter and fluid. Trochars were then removed under direct vision and the abdomen desufflated by giving the patient a Valsalva maneuver. The umbilical incision was closed with interrupted Vicryl suture and Monocryl sutures were placed in the skin. The remaining skin incisions were closed with Monocryl suture. All sponge, needle, and instrument counts were correct at the conclusion of the case. The patient was allowed to awaken from anesthesia without difficulty and taken to the post anesthesia care unit in good condition. Complications: none Condition: stable Disposition: PACU Plan for aftercare: 1. Discharge to home 2. Follow up with me in 2 weeks
[2018-04-06] MEDS: METOCLOPRAMIDE 10 MG/2 ML INJ IV (09:29)
--- NOTE | 2018-04-06 10:10 | SUR.PHASEI ---
Addendum entered by Liberty Braden R.N. 04/06/18 10:16: Report given to JAVED Cardona prior to pt's transfer. Dulce at bedside upon pt's arrival to room 215. Original Note: Pt transferred to room 215 via bed. Last vital signs stable. Pt awake, alert with no complaints of nausea or pain
[2018-04-06] MEDS: LOSARTAN 50 MG TABLET PO (13:40)
[2018-04-06] MEDS: OXYCODONE/ACETAMINOPHEN 5/325 TABLET 1 TAB PO (15:00)
--- NOTE | 2018-04-06 17:42 | PC.NURSE ---
Dania shift note: 1630: Patient discharge per Dr. Dubois. Discharge instructions given to patient and spouse. Both verbalized understanding of discharge instructions. Discussed importance of F/U, activity restrictions, diet, and wound care. Ambulating independently in room, dressed self. Discharge home with via private vehicle. IV access removed.
== END 2018-04-06 16:30 | disposition home or self-care (01) ==
LOC: ED 05:31 → AC 06:07
PROVIDERS: Admitting Provider Surgery; Emergency Provider Emergency Medicine; PCP Specialist; Visit Provider Surgery
PROC: 0FT44ZZ Resection of Gallbladder, Percutaneous Endoscopic Approach (ICD-10-PCS; CPT 47562; principal; 2018-04-06 07:45)
DX: R07.9 Chest pain, unspecified (principal); K80.00 Calculus of gallbladder with acute cholecystitis without obstruction; E11.9 Type 2 diabetes mellitus without complications; K21.9 Gastro-esophageal reflux disease without esophagitis; I48.0 Paroxysmal atrial fibrillation; I10 Essential (primary) hypertension; Z79.4 Long term (current) use of insulin
CPT/HCPCS: 47562; 36591; 71045; 71275; 74175; 76700; 80048; 80076; 82962; 83690; 84484; 85025; 85610; 85730; 93005; 94762; 96361; 96365; 96375; 99220; 99283; 99285; 99291; 99292; G0378; C9113; J1335; J1885; J2250; J2270; J2405; J2704; J2765; J3010; Q9967

== ENCOUNTER 2019-06-06 18:28 | Emergency (ER) | payer OTHER, SELFPAY ==
[2018-04-05 06:13] VITALS: BMI 33.0
[2019-06-06 18:35] VITALS: BP 125/84; PULSE 99; RESP 16; TEMP 37.1; O2SAT 97; BMI 33.0
--- NOTE | 2019-06-06 19:13 | DI.RAD.S_ITS ---
PROCEDURE: XR ELBOW LT MIN 3V INDICATIONS: pain, injury TECHNIQUE: 4 views of the elbow were acquired. COMPARISON: None. FINDINGS: Bones: No fractures or dislocations. No suspicious bony lesions. Soft tissues: No elbow joint effusion. There are calcifications over the medial epicondyle consistent with medial epicondylitis. Olecranon enthesophytes. IMPRESSION: 1. No fracture or dislocation. 2. Medial epicondylitis. 3. Olecranon enthesopathy. Dictated by: Jon Carey M.D. on 06/06/2019 at 19:42 Approved by: Jon Carey M.D. on 06/06/2019 at 19:45
--- NOTE | 2019-06-06 19:21 | ED.UPPEXIN ---
HPI - Extremity Injury (Upper) <Vianey Mccarthymer, [employer]ER[employer] - Last Filed: 06/06/19 20:29> General Chief Complaint: Extremity Injury, Upper Stated Complaint: left elbow red and swollen Time Seen by Provider: 06/06/19 18:35 Source: patient Mode of arrival: Ambulatory Limitations: no limitations History of Present Illness HPI narrative: The patient is a 53-year-old male nonsmoker with history of atrial fibrillation and [id number] diabetes who presents with a chief complaint of a left elbow redness and pain. He states he started when he woke up this morning and now it is 8/10 pain. He denies any injuries but notes that somebody told him he had a cut on the back of his left elbow. He denies any fevers nausea vomiting or diarrhea. He has not taken anything for the pain today. He denies any known injuries, but notes that he has a very active lifestyle using his hands and working in small spaces a lot. He states is possible that he hurt himself and did not know it. Related Data Home Medications Medication Instructions Recorded Confirmed Victoza 2-Lanre 1.8 mg SQ QAM #0 09/21/16 04/25/18 hydrochlorothiazide 25 mg PO QDAY #0 09/21/16 04/25/18 losartan 50 mg PO QDAY #0 09/21/16 04/25/18 melatonin 20 mg PO HS PRN #0 09/21/16 04/05/18 metformin [Glucophage] 2 tab PO BID #0 09/21/16 04/25/18 omeprazole 20 mg PO PRN PRN #0 09/21/16 04/25/18 insulin glargine 28 unit SUBCUT DAILY 04/05/18 04/05/18 Previous Rx's Medication Instructions Recorded ondansetron 4 mg PO QID PRN #20 tab 04/06/18 oxycodone-acetaminophen 1 tab PO Q4-6H PRN #30 tab 04/06/18 clindamycin HCl 300 mg PO TID 10 Days #30 cap 06/06/19 hydrocodone-acetaminophen [Denniston] 1 tab PO Q4-6H PRN #5 tab 06/06/19 ketorolac 10 mg PO TID PRN 5 Days #14 tab 06/06/19 Allergies Allergy/AdvReac Type Severity Reaction Status Date / Time Penicillins [PENICILLINS] Allergy RASH Verified 04/06/18 07:43 Review of Systems <CARMINA Luu - Last Filed: 06/06/19 20:29> Review of Systems Narrative: GENERAL: Denies chills, fatigue, malaise, fever, sweats. HEENT: Denies sinus pain, ear pain, sore throat, difficulty swallowing, dizziness. RESPIRATORY: Denies dyspnea, cough, wheezing, hemoptysis, sputum. CARDIOVASCULAR: Denies chest pain, palpitations, orthopnea, edema, GASTROINTESTINAL: Denies nausea, vomiting, abdominal pain, diarrhea, constipation, melena. : Denies dysuria, frequency, incontinence, hematuria, urinary retention. MUSCULOSKELETAL: See HPI SKIN: See HPI NEUROLOGIC: Denies weakness, headache, numbness, change in speech, confusion, seizures, incoordination. PSYCHIATRIC: No concerning psychosocial issues. 12 point review of systems is negative except for those stated above Patient History <CARMINA Luu - Last Filed: 06/06/19 20:29> Medical History Diabetes (Acute) Gastroesophageal reflux disease (Acute) Hypertension (Acute) Paroxysmal atrial fibrillation (Acute) Social History marital status: household members: spouse occupational status: employed Smoking Status: Never smoker substance use type: does not use Smoking Status: Never smoker alcohol intake frequency: holidays/special occasions only Substance Use Type: does not use Exam <CARMINA Luu - Last Filed: 06/06/19 20:29> Narrative Exam Narrative: GENERAL: This is a well-nourished, well-developed patient, in no acute distress HEAD: Atraumatic. Normocephalic. No temporal or scalp tenderness. EYES: Pupils equal round and reactive. Extraocular motions intact. No scleral icterus. No injection or drainage. ENT: Nose without bleeding, purulent drainage or septal hematoma. Throat without erythema, tonsillar hypertrophy or exudate. Uvula midline. Airway patent. NECK: Trachea midline. No JVD or lymphadenopathy. Supple, nontender, no meningeal signs. CARDIOVASCULAR: Regular rate and rhythm without murmurs, gallops, or rubs. RESPIRATORY: Clear to auscultation. Breath sounds equal bilaterally. No wheezes, rales, or rhonchi. GASTROINTESTINAL: Abdomen soft, non-tender, nondistended. No hepato-splenomegaly, or palpable masses. No guarding. EXTREMITIES: Pain to palpation left elbow. Positive radial pulse left hand. Able to flex left elbow fully, and reduced extension to approximately 120?. See skin exam. BACK: Nontender without deformity or crepitance. No flank tenderness. NEURO: AOx3. SKIN: 0.5 cm abrasion with scabbing noted on all the creatinine of left elbow with 3 cm surrounding erythema all directions. Initial Vital Signs Initial Vital Signs: Vital Signs Temperature 98.8 F 06/06/19 18:35 Pulse Rate 99 H 06/06/19 18:35 Respiratory Rate 16 06/06/19 18:35 Blood Pressure 125/84 06/06/19 18:35 Pulse Oximetry 97 06/06/19 18:35 <Arlet Barahona MD - Last Filed: 06/07/19 04:46> Initial Vital Signs Initial Vital Signs: Vital Signs Temperature 98.8 F 06/06/19 18:35 Pulse Rate 99 H 06/06/19 18:35 Respiratory Rate 16 06/06/19 18:35 Blood Pressure 125/84 06/06/19 18:35 Pulse Oximetry 97 06/06/19 18:35 Course <CARMINA Luu - Last Filed: 06/06/19 20:29> Orders Ordered: Discontinued Medications Hydrocodone Bitart/Acetaminophen (Denniston 5/325) 1 tab PO NOW ONE Stop: 06/06/19 20:04 Last Admin: 06/06/19 20:19 Dose: 1 tab Documented by: DUNCAN Clindamycin HCl (Cleocin) 300 mg PO NOW ONE Stop: 06/06/19 20:04 Last Admin: 06/06/19 20:19 Dose: 300 mg Documented by: DUNCAN Ketorolac Tromethamine (Toradol) 30 mg IM NOW ONE Stop: 06/06/19 19:14 Last Admin: 06/06/19 19:37 Dose: Not Given Documented by: DUNCAN Ketorolac Tromethamine (Toradol) 60 mg IM NOW ONE Stop: 06/06/19 19:32 Last Admin: 06/06/19 19:42 Dose: 60 mg Documented by: DUNCAN Vital Signs Vital signs: Vital Signs - 8 hr 06/06/19 18:35 Temperature 98.8 F Pulse Rate 99 H Respiratory Rate 16 Blood Pressure 125/84 Pulse Oximetry 97 <Arlet Barahona MD - Last Filed: 06/07/19 04:46> Orders Ordered: Discontinued Medications Hydrocodone Bitart/Acetaminophen (Denniston 5/325) 1 tab PO NOW ONE Stop: 06/06/19 20:04 Last Admin: 06/06/19 20:19 Dose: 1 tab Documented by: DUNCAN Clindamycin HCl (Cleocin) 300 mg PO NOW ONE Stop: 06/06/19 20:04 Last Admin: 06/06/19 20:19 Dose: 300 mg Documented by: DUNCAN Ketorolac Tromethamine (Toradol) 30 mg IM NOW ONE Stop: 06/06/19 19:14 Last Admin: 06/06/19 19:37 Dose: Not Given Documented by: DUNCAN Ketorolac Tromethamine (Toradol) 60 mg IM NOW ONE Stop: 06/06/19 19:32 Last Admin: 06/06/19 19:42 Dose: 60 mg Documented by: DUNCAN Vital Signs Vital signs: Vital Signs - 8 hr 06/06/19 18:35 Temperature 98.8 F Pulse Rate 99 H Respiratory Rate 16 Blood Pressure 125/84 Pulse Oximetry 97 MDM - Extremity Injury (Upper) <CARMINA Luu - Last Filed: 06/06/19 20:29> Imaging Data Extremity x-ray #1: Radiologist's Impression: [address] [place] [id number] XRay Report Signed Patient: Kishan Aleman [facility]#: [id number] : 1965Acct:[id number] Age/Sex: 53 / MDate of Service: 06/06/19 Loc: ED Accession Number: [id number] Procedure: XR elbow LT min 3V Ordering Provider: Vianey Cosby PROCEDURE: XR ELBOW LT MIN 3V INDICATIONS: pain, injury TECHNIQUE: 4 views of the elbow were acquired. COMPARISON: None. FINDINGS: Bones: No fractures or dislocations. No suspicious bony lesions. Soft tissues: No elbow joint effusion. There are calcifications over the medial epicondyle consistent with medial epicondylitis. Olecranon enthesophytes. IMPRESSION: 1. No fracture or dislocation. 2. Medial epicondylitis. 3. Olecranon enthesopathy. Dictated by: Jon Carey M.D. on 06/06/2019 at 19:42 Approved by: Jon Carey M.D. on 06/06/2019 at 19:45 [facility] Narrative Medical decision making narrative: The patient is a 53-year-old male presents with a chief complaint of a painful swollen elbow. He does have a laceration on the back of the with redness extending from it. He denies any signs of systemic illness, is afebrile nontoxic and well appearing he is hemodynamically stable and neurovascularly intact. X-ray indicates concern for medial epicondylitis as well as olecranon enthesopathy. He does have range of motion, is afebrile and nontoxic helping rule out a septic arthritis. He does have an allergy to penicillin and is diabetic, so will start him on clindamycin. Discussed at length rest ice compression elevation as well as Toradol, not combining Toradol with any ibuprofen Aleve or any other NSAIDs. Encourage PCP follow-up in the next few days. Discussed at length return precautions. Patient has no questions or concerns upon discharge and states understanding return precautions as well as follow-up care. Discharge Plan Departure Patient Disposition: Home Clinical Impression: Cellulitis Qualifiers: Site of cellulitis: extremity Site of cellulitis of extremity: upper extremity Laterality: left Qualified Code(s): L03.114 - Cellulitis of left upper limb Epicondylitis elbow, medial Qualifiers: Laterality: left Qualified Code(s): M77.02 - Medial epicondylitis, left elbow Elbow pain Qualifiers: Laterality: left Qualified Code(s): M25.522 - Pain in left elbow Discharge Date/Time: 06/06/19 20:31 Instructions: DI for Cellulitis -- Adult, How To Perform RICE (Rest, Ice, Compress, Elevate), DI for Medial Epicondylitis, DI for Elbow Pain Activity Restrictions/Additional Instructions: Thank you for trusting us with your care today. As discussed, your x-ray is indicative of medial epicondylitis aka golf elbow Your exam is concerning for a skin infection called cellulitis. I have sent 3 prescriptions to [facility] in [place]. Please take the entire course of antibiotic. Take it with a probiotic or yogurt I have given you a prescription of Toradol. This is an NSAID. Do not combine it with other NSAIDs such as Aleve or ibuprofen. I suggest taking it with some food, as it can irritate your stomach. I have given you a prescription of a narcotic for pain. Be aware that this can be constipating and sedating. I encouraged taking with a stool softener, pushing fluids and fiber. Do not take and drive, operate heavy machinery, etc. Do not combine it with any other sedating substances such as alcohol. The combination of narcotics and alcohol and/or other sedatives can be lethal. Please be aware that we do not provide refills of controlled substances in the emergency department. Please follow up with your primary care provider. Please monitor for inability keep down fluids, high fevers, and come back to the emergency department for any acute concerns Please follow-up with primary care provider in the next few days Prescriptions: New hydrocodone-acetaminophen [Denniston] 5-325 mg tablet 1 tab PO Q4-6H PRN (Reason: pain) Qty: 5 RF: 0 ketorolac 10 mg tablet 10 mg PO TID PRN (Reason: pain) 5 Days Qty: 14 RF: 0 clindamycin HCl 300 mg capsule 300 mg PO TID 10 Days Qty: 30 RF: 0 No Action metformin [Glucophage] 500 MG tablet 2 tab PO BID Qty: 0 RF: 0 Victoza 2-Lanre 0.6 MG/0.1 ML pen injector 1.8 mg SQ QAM Qty: 0 RF: 0 losartan 50 MG tablet 50 mg PO QDAY Qty: 0 RF: 0 hydrochlorothiazide 25 MG tablet 25 mg PO QDAY Qty: 0 RF: 0 melatonin 10 MG capsule 20 mg PO HS PRN (Reason: Sleep) Qty: 0 RF: 0 omeprazole 20 MG capsule,delayed release(DR/EC) 20 mg PO PRN PRN (Reason: Acid Reflux) Qty: 0 RF: 0 insulin glargine 100 unit/mL (3 mL) Insulin Pen 28 unit SUBCUT DAILY RF: 0 oxycodone-acetaminophen 5-325 mg tablet 1 tab PO Q4-6H PRN (Reason: pain) Qty: 30 RF: 0 ondansetron 4 mg tablet,disintegrating 4 mg PO QID PRN (Reason: nausea and vomiting) Qty: 20 RF: 0 Referrals: Timmy Bautista MD [Primary Care Provider] - <Arlet Barahona MD - Last Filed: 06/07/19 04:46> Cosign ED Attending Costatoature Attestation: I was immediately available in the department for consultation throughout this patient's visit. I agree with documentation as above. Arlet Barahona MD
[2019-06-06] MEDS: KETOROLAC 60 MG/2 ML VIAL IM (19:42)
[2019-06-06] MEDS: CLINDAMYCIN 150 MG CAPSULE 300 MG PO (20:19)
[2019-06-06] MEDS: HYDROCODONE/ACET 5/325 TABLET 1 TAB PO (20:19)
[2019-06-06 20:30] VITALS: BP 130/78; PULSE 77; RESP 16; O2SAT 97
== END 2019-06-06 20:31 | disposition home or self-care (01) ==
PROVIDERS: Emergency Provider Nurse Practitioner Family; PCP Specialist
DX: L03.114 Cellulitis of left upper limb (principal); M77.02 Medial epicondylitis, left elbow; M25.522 Pain in left elbow; I48.91 Unspecified atrial fibrillation; E11.9 Type 2 diabetes mellitus without complications
CPT/HCPCS: 73080; 96372; 99283; 99284; J1885

== ENCOUNTER 2020-08-09 06:27 | Emergency (ER) | payer OTHER, SELFPAY ==
[2018-04-05 06:13] VITALS: BMI 33.0
[2020-08-09] VITALS (72 sets, daily range): BP systolic 101–146; BP diastolic 61–96; PULSE 71–148; RESP 11–53; TEMP 35.9; O2SAT 82–99; BMI 32.6
--- NOTE | 2020-08-09 06:35 | DI.RAD.S_ITS ---
PROCEDURE: XR CHEST 1V INDICATIONS: chest pain TECHNIQUE: One view of the chest was acquired. COMPARISON: [facility], CR, XR CHEST 1V, 04/05/2018, 2:23. FINDINGS: Surgical changes and devices: None. Lungs and pleura: No pleural effusions or pneumothorax. Scattered subsegmental atelectasis and/or scarring. No focal consolidation. Minimal left basilar ground-glass and hazy opacities. Mediastinum: Mediastinal contours appear normal. Heart size is normal. Bones and chest wall: No suspicious bony lesions. Overlying soft tissues appear unremarkable. IMPRESSION: Minimal left basilar opacities. This could reflect mild atelectasis versus early pneumonia. If there is persistent clinical diagnostic uncertainty, continued surveillance with short interval radiographic followup after treatment is recommended. Findings concordant with preliminary study interpretation. Dictated by: Dedrick Arroyo M.D. on 08/09/2020 at 8:58 Approved by: Dedrick Arroyo M.D. on 08/09/2020 at 9:00
[2020-08-09] MEDS: dilTIAZem 5 MG/ML SDV 10 MG IV (06:46)
[2020-08-09 06:55] LABS: Add Manual Diff / Slide Review NO; Basophils Absolute Auto 0 /uL (0-100); Basophils Percent Auto 0.5 % (0-2); Eosinophils Absolute Auto 200 /uL (0-450); Eosinophils Percent Auto 2.5 % (2-4); Hematocrit 43.6 % (41-53); Hemoglobin 14.5 g/dL (13.5-17.5); Lymphocytes Absolute Auto 3000 /uL (1100-4500); Lymphocytes Percent Auto 32.8 % (25-40); Mean Corpuscular HGB Conc 33.3 % (30-36); Mean Corpuscular Hemoglobin 31.3 PG (26-34); Mean Corpuscular Volume 94.1 fL (80-100); Monocytes Absolute Auto 800 /uL (0-900); Monocytes Percent Auto 9.1 % (3-14); Neutrophils Absolute Auto 5100 /uL (1500-7000); Neutrophils Percent Auto 55.1 % (50-75); Platelet Count 229 X10^3/uL (150-400); Red Blood Cell Count 4.63 X10^6/uL (4.5-5.9); Red Cell Distribution Width 13.3 % (11.6-14.8); White Blood Cell Count 9.2 X10^3/uL (4.5-11.0)
[2020-08-09 07:00] LABS: Alanine Aminotransferase 36 IU/L (<50); Albumin 4.3 g/dL (3.5-5.0); Albumin Globulin Ratio 1.2 (1.0-2.8); Alkaline Phosphatase 83 U/L (38-126); Aspartate Aminotransferase 44 IU/L (17-59); BUN Creatinine Ratio 29.7 (6-22); Bilirubin Total 0.9 mg/dL (0.2-1.3); Blood Urea Nitrogen 22 mg/dL (9-20); Calcium 9.6 mg/dL (8.4-10.2); Carbon Dioxide 26 mmol/L (22-32); Chloride 102 mmol/L (98-107); Creatine Kinase 529 U/L (55-170); Estimated Glomerular Filt Rate > 60.0 mL/min (>60); Globulin 3.6 g/dL (1.7-4.1); Glucose 151 mg/dL (70-100); Lipase 98 U/L (23-300); Potassium 4.2 mmol/L (3.4-5.1); Sodium 136 mmol/L (137-145); Total Protein 7.9 g/dL (6.3-8.2)
--- NOTE | 2020-08-09 07:09 | ED.CHESTPAIN ---
HPI - Chest Pain General Chief Complaint: Chest Pain Stated Complaint: Cardiac issue Time Seen by Provider: 08/09/20 06:40 Source: patient Mode of arrival: Ambulatory Limitations: no limitations History of Present Illness HPI narrative: 55-year-old gentleman with history of hypertension, diabetes and paroxysmal atrial fibrillation. He is very aware of when he is atrial fibrillation. This is his 3rd episode. The initial episode was approximately 7 years ago, 2012. At that time he was cardioverted ended up having a full workup including heart catheterization that did not show coronary artery disease and echocardiogram that was reportedly unremarkable. He was not anticoagulated. He had another episode in 2019 that was again cardioverted without difficulty. Last night he was in his usual state of health and woke up this morning and noted that he was in atrial fibrillation with rapid ventricular response. Notes only the irregular rhythm with no chest pain, dyspnea, orthopnea, fever, cough, abdominal pain, vomiting, diarrhea. In the emergency department he was given 10 mg of IV diltiazem in his rate slowed to 100. He notes that with his 1st cardioversion he had a small dose of propofol and remembers all of it and describes it is a very negative experience. With his 2nd cardioversion he was given 160 mg of propofol remembers none of it and would prefer that the future cardioversions continue in this vein. Related Data Home Medications Medication Instructions Recorded Confirmed Victoza 2-Lanre 1.8 mg SQ QAM #0 09/21/16 04/25/18 hydrochlorothiazide 25 mg PO QDAY #0 09/21/16 04/25/18 losartan 50 mg PO QDAY #0 09/21/16 04/25/18 melatonin 20 mg PO HS PRN #0 09/21/16 04/05/18 metformin [Glucophage] 2 tab PO BID #0 09/21/16 04/25/18 omeprazole 20 mg PO PRN PRN #0 09/21/16 04/25/18 insulin glargine 28 unit SUBCUT DAILY 04/05/18 04/05/18 Previous Rx's Medication Instructions Recorded ondansetron 4 mg PO QID PRN #20 tab 04/06/18 oxycodone-acetaminophen 1 tab PO Q4-6H PRN #30 tab 04/06/18 hydrocodone-acetaminophen [[place]] 1 tab PO Q4-6H PRN #5 tab 06/06/19 apixaban 5 mg PO BID #60 tab 08/09/20 Allergies Allergy/AdvReac Type Severity Reaction Status Date / Time Penicillins [PENICILLINS] Allergy RASH Verified 04/06/18 07:43 Review of Systems Review of Systems Narrative: Remainder of complete review of systems is otherwise unremarkable except for that included in the HPI. Patient History Medical History (Updated 08/09/20 @ 09:58 by Arlet Barahona MD) Diabetes Gastroesophageal reflux disease Hypertension Paroxysmal atrial fibrillation Social History marital status: household members: spouse occupational status: employed Smoking Status: Never smoker substance use type: does not use Smoking Status: Never smoker alcohol intake frequency: holidays/special occasions only Substance Use Type: does not use Exam Narrative Exam Narrative: General: Healthy appearing, in no acute distress. Able to give a complete and coherent history. Well-nourished well-developed HEENT: Moist mucous membranes, normal sclera with reactive pupils, Neck: No JVD, supple Respiratory: Lungs are clear to auscultation, no wheezing no rales no rhonchi. Full and symmetrical air movement Cardiac: Irregularly irregular, tachycardic, no murmurs no bruits Abdomen: Soft, nontender, good bowel tones, no flank pain Skin: Warm and dry, no rashes Neurologic: Grossly neurologically intact with no obvious asymmetries or abnormalities Extremities: No trauma, well perfused Psych: Cooperative, appropriate insight and affect Initial Vital Signs Initial Vital Signs: Vital Signs Temperature 96.6 F L 08/09/20 06:35 Pulse Rate 126 H 08/09/20 06:35 Respiratory Rate 20 08/09/20 06:35 Blood Pressure 146/92 H 08/09/20 06:35 Pulse Oximetry 99 08/09/20 06:35 Procedures Cardioversion Consent Signed: Yes Stability: Stable Number of attempts (shocks): 2 Joules used: 100 and 150 Cardiac rhythm post-cardioversion: sinus at a rate of 80 Procedural Sedation Consent signed: Yes Time out performed: Yes Indication: cardioversion ASA Class: II Mallampati Airway Classification: Class II Time of Last PO Intake: 19:00 (dinner last night) Preparation: chamber of [employer] division manager applied, pulse oximeter, capnometry used, supplemental O2 applied, suction/airway equipment at bedside and IV secured IV Propofol dose (mg): 160 (hx of adverse experince with lower dose, 160mg used last time and went well per patient) Intraservice time/total sedation time (min): 11 ED Sedation Level: Moderate (Concious) Patient Tolerated Procedure: No complications Complications: hypoxia Interventions: Airway repositioned Additional Comments: with future cardioversions I would recommend starting with 100 mg of propofol as a single push. I suspect the 160 mg that was successful previously was a combination of multiple doses over a period of time. He was sedated for 2-3 minutes longer than required with this higher dose. Scores CHADS-VASc Congestive heart failure: no Hypertension: yes Age 75 years or older: no Diabetes mellitus: yes Stroke, TIA, or TE: no Vascular disease: no Age 65 to 74 years: no Sex category (female): Male CHADS-VASc Score: 2 Course Orders Ordered: ED Orders 08/09/20 06:35 XR chest 1V Stat EKG-12 Lead Stat 08/09/20 06:40 Complete Blood Count AUTO DIFF Stat Comprehensive Metabolic Panel Stat Lipase Stat Troponin & CK Cardiac Panel Stat Discontinued Medications Apixaban (Apixaban 5 Mg Tablet) 5 mg PO NOW ONE Stop: 08/09/20 09:54 Diltiazem HCl (Diltiazem 5 Mg/Ml Sdv) 10 mg IV NOW ONE Stop: 08/09/20 06:41 Last Admin: 08/09/20 06:46 Dose: 10 mg Documented by: LAURIE Propofol (Propofol 200 Mg/20 Ml Vial) 160 mg IV NOW ONE Stop: 08/09/20 08:20 Last Admin: 08/09/20 09:41 Dose: 160 mg Documented by: SHANNAN Vital Signs Vital signs: Vital Signs - 8 hr 08/09/20 06:35 08/09/20 06:46 08/09/20 09:00 Temperature 96.6 F L Pulse Rate 126 H 138 H 133 H Respiratory Rate 20 13 Blood Pressure 146/92 H 146/92 H Pulse Oximetry 99 94 08/09/20 09:02 08/09/20 09:04 08/09/20 09:06 Temperature Pulse Rate 134 H 142 H 148 H Respiratory Rate 13 14 15 Blood Pressure Pulse Oximetry 96 96 95 08/09/20 09:08 08/09/20 09:10 08/09/20 09:12 Temperature Pulse Rate 143 H 136 H 135 H Respiratory Rate 16 18 16 Blood Pressure Pulse Oximetry 95 95 95 08/09/20 09:14 08/09/20 09:16 08/09/20 09:18 Temperature Pulse Rate 134 H 134 H 135 H Respiratory Rate 16 21 17 Blood Pressure Pulse Oximetry 96 97 95 08/09/20 09:20 08/09/20 09:22 08/09/20 09:24 Temperature Pulse Rate 122 H 125 H 145 H Respiratory Rate 21 14 20 Blood Pressure Pulse Oximetry 95 96 95 08/09/20 09:26 08/09/20 09:28 08/09/20 09:30 Temperature Pulse Rate 124 H 120 H 138 H Respiratory Rate 11 L 12 24 Blood Pressure 117/94 H Pulse Oximetry 98 97 96 08/09/20 09:32 08/09/20 09:34 08/09/20 09:36 Temperature Pulse Rate 138 H 145 H 134 H Respiratory Rate 53 H 28 H 25 H Blood Pressure 132/96 H Pulse Oximetry 98 98 98 08/09/20 09:38 08/09/20 09:40 08/09/20 09:41 Temperature Pulse Rate 137 H 102 H 143 H Respiratory Rate 18 18 31 H Blood Pressure 142/90 H Pulse Oximetry 97 96 96 08/09/20 09:42 08/09/20 09:44 08/09/20 09:46 Temperature Pulse Rate 145 H 143 H 83 Respiratory Rate 34 H 23 20 Blood Pressure 110/62 114/70 Pulse Oximetry 97 99 82 L 08/09/20 09:48 08/09/20 09:50 08/09/20 09:52 Temperature Pulse Rate 91 H 88 93 H Respiratory Rate 18 22 22 Blood Pressure 125/79 123/61 Pulse Oximetry 94 94 96 08/09/20 09:54 08/09/20 09:56 08/09/20 09:57 Temperature Pulse Rate 93 H 90 91 H Respiratory Rate 21 24 20 Blood Pressure 101/71 Pulse Oximetry 95 95 95 08/09/20 09:58 08/09/20 10:00 08/09/20 10:02 Temperature Pulse Rate 88 85 87 Respiratory Rate 30 H 27 H 27 H Blood Pressure Pulse Oximetry 95 94 98 08/09/20 10:04 08/09/20 10:06 08/09/20 10:08 Temperature Pulse Rate 82 81 79 Respiratory Rate 22 20 15 Blood Pressure 104/68 109/69 Pulse Oximetry 94 94 92 08/09/20 10:10 08/09/20 10:12 Temperature Pulse Rate 82 79 Respiratory Rate 18 16 Blood Pressure 108/69 Pulse Oximetry 92 92 MDM - Chest Pain Medical Records Data Attestation: I reviewed the patient's medical records. Lab Data Attestation: I reviewed the patient's lab results. Result diagrams: 08/09/20 06:40 08/09/20 06:40 Labs: Lab Results 08/09/20 08/09/20 Range/Units 06:40 06:40 WBC 9.2 (4.5-11.0) X10^3/uL RBC 4.63 (4.5-5.9) X10^6/uL Hgb 14.5 (13.5-17.5) g/dL Hct 43.6 (41-53) % MCV 94.1 (80-100) fL MCH 31.3 (26-34) PG MCHC 33.3 (30-36) % RDW 13.3 (11.6-14.8) % Plt Count 229 (150-400) X10^3/uL Neut % (Auto) 55.1 (50-75) % Lymph % (Auto) 32.8 (25-40) % [place] % (Auto) 9.1 (3-14) % Eos % (Auto) 2.5 (2-4) % Baso % (Auto) 0.5 (0-2) % Neut # (Auto) 5100 (5688-4853) /uL Lymph # (Auto) 3000 (1541-7097) /uL [place] # (Auto) 800 (0-900) /uL Eos # (Auto) 200 (0-450) /uL Baso # (Auto) 0 (0-100) /uL Sodium 136 L (137-145) mmol/L Potassium 4.2 (3.4-5.1) mmol/L Chloride 102 (98-107) mmol/L Carbon Dioxide 26 (22-32) mmol/L BUN 22 H (9-20) mg/dL Creatinine 0.74 (0.66-1.25) mg/dL Estimated GFR > 60.0 (>60) mL/min BUN/Creatinine Ratio 29.7 H (6-22) Glucose 151 H (70-100) mg/dL Calcium 9.6 (8.4-10.2) mg/dL Total Bilirubin 0.9 (0.2-1.3) mg/dL AST 44 (17-59) IU/L ALT 36 (<50) IU/L Alkaline Phosphatase 83 (38-126) U/L Total Creatine Kinase 529 H (55-170) U/L CK-MB (CK-2) 3.58 H (<2.37) ng/mL CK-MB (CK-2) Rel Index 0.7 L (1.5-5.0) % Troponin I < 0.012 (0.01-0.034) ng/mL Total Protein 7.9 (6.3-8.2) g/dL Albumin 4.3 (3.5-5.0) g/dL Globulin 3.6 (1.7-4.1) g/dL Albumin/Globulin Ratio 1.2 (1.0-2.8) Lipase 98 (23-300) U/L ECG Data Attestation: I personally reviewed and interpreted this ECG as follows: Interpretation: 639 Atrial fibrillation at a rate of [address] T wave abnormalities 948 post cardioversion sinus rhythm at a rate of [address] T-wave abnormalities with EKG done immediately post conversion MDM Narrative Medical decision making narrative: 55-year-old gentleman with a history of paroxysmal atrial fibrillation. Last episode was approximately 2 years ago. With initial episode he did have a full workup that was reassuring. That was at least 7 years ago. Labs were unremarkable patient was hemodynamically stable throughout his entire visit today. He tolerated the sedation and the cardioversion well. Was given 5 mg of apixaban with recommendation to continue this b.i.d. for at least a month after today's cardioversion. With his history of hypertension and diabetes his chads score is high enough to continue anticoagulation at this point. Will ask him to follow-up with Dr. Sweeney, certified detention deputy, anthropology and archeology instructor with no changes to medications at this time otherwise. 1100 Re-evaluation. He is awake, has tolerated some water and states that he feels 100% back to normal. Rhythm continues to be sinus in the mid 70s. He is safe for home discharge Discharge Plan Departure Patient Disposition: Home Clinical Impression: Paroxysmal atrial fibrillation with rapid ventricular response, Encounter for cardioversion procedure Instructions: DI for Cardioversion, DI for Atrial Fibrillation, DI for Moderate Sedation Activity Restrictions/Additional Instructions: thank you for coming in today you were in atrial fibrillation again. Your lab work was very reassuring. You were cardioverted today. For future cardioversions, I would suggest 100 mg of propofol as a single push. And beginning at 150 joules of electricity. Your given your 1st dose of apixaban/ Eliquis, Blood thinner to prevent stroke. please continue this for at least a month or until you have discussed it further with your anthropology and archeology instructor you do need to establish care with a anthropology and archeology instructor. I am going to suggest Dr. Sweeney, and electrophysiology/atrial fibrillation specialist at [facility]. If you have any recurrent symptoms, please feel free to return to the emergency department Prescriptions: New apixaban 5 mg tablet 5 mg PO BID Qty: 60 RF: 1 No Action metformin [Glucophage] 500 MG tablet 2 tab PO BID Qty: 0 RF: 0 Victoza 2-Lanre 0.6 MG/0.1 ML pen injector 1.8 mg SQ QAM Qty: 0 RF: 0 losartan 50 MG tablet 50 mg PO QDAY Qty: 0 RF: 0 hydrochlorothiazide 25 MG tablet 25 mg PO QDAY Qty: 0 RF: 0 melatonin 10 MG capsule 20 mg PO HS PRN (Reason: Sleep) Qty: 0 RF: 0 omeprazole 20 MG capsule,delayed release(DR/EC) 20 mg PO PRN PRN (Reason: Acid Reflux) Qty: 0 RF: 0 insulin glargine 100 unit/mL (3 mL) Insulin Pen 28 unit SUBCUT DAILY RF: 0 oxycodone-acetaminophen 5-325 mg tablet 1 tab PO Q4-6H PRN (Reason: pain) Qty: 30 RF: 0 ondansetron 4 mg tablet,disintegrating 4 mg PO QID PRN (Reason: nausea and vomiting) Qty: 20 RF: 0 hydrocodone-acetaminophen [[place]] 5-325 mg tablet 1 tab PO Q4-6H PRN (Reason: pain) Qty: 5 RF: 0 Referrals: Elier Sweeney MD [Physician] -
[2020-08-09 07:12] LABS: Troponin I < 0.012 ng/mL (0.01-0.034)
[2020-08-09 07:15] LABS: CKMB % Relative Index 0.7 % (1.5-5.0); Creatine Kinase MB 3.58 ng/mL (<2.37); HEMOLYSIS 23 (0-50)
[2020-08-09] MEDS: propofoL 200 MG/20 ML VIAL 160 MG IV (09:41)
--- NOTE | 2020-08-09 10:18 | RT ---
At bedside for PRS for Cardioversion. Bag mask unit with suction on at [facility] functional. Etco2 on with 2 lpm nc. No distress noted, Jaw thrust applied for 3 min, pt nasra well. MD at bedside repeat ekg done and at bedside. Released by JAVED Bradley. Pt awake and alert
[2020-08-09] MEDS: APIXABAN 5 MG TABLET PO (11:13)
--- NOTE | 2020-08-09 12:36 | PC.NURSE ---
Received fax from [employer] stating that Eliquis was not covered. Dr. Barahona reviewed, changed prescription to Proadaxa 150 mg po bid which is covered by insurance. Called pt and updated on changes w/ verbalized understanding.
== END 2020-08-09 11:23 | disposition home or self-care (01) ==
PROVIDERS: Emergency Medicine; Emergency Provider Emergency Medicine
DX: I48.0 Paroxysmal atrial fibrillation (principal); R09.02 Hypoxemia
CPT/HCPCS: 36415; 71045; 80053; 82550; 82553; 83690; 84484; 85025; 92960; 93005; 93010; 96374; 99152; 99285; J2704

== ENCOUNTER 2021-02-09 09:04 | Emergency (ER) | payer OTHER, SELFPAY ==
[2018-04-05 06:13] VITALS: BMI 33.0
[2021-02-09 09:14] VITALS: BP 125/81; PULSE 129; RESP 22; TEMP 36.6; O2SAT 96; BMI 31.1
--- NOTE | 2021-02-09 09:20 | ED_ITS ---
HPI - Arrhythmia/Palpitations General Chief Complaint: Arrhythmia/Palpitations Stated Complaint: AFIB Time Seen by Provider: 02/09/21 09:05 Source: patient and family Mode of arrival: Family Vehicle History of Present Illness HPI narrative: Patient is a 55-year-old male. Has a history of insulin-dependent diabetes. Also has a history of atrial fibrillation. Is on Eliquis. Has been taking this 2 times a day for least the past month if not longer. He does have a cushion stuffer. He states this morning he woke up and felt like his heart was fluttering. Some shortness of breath. No chest pain. Feels like his prior episodes of AFib although not as fast. No lower extremity swelling. He did take his blood sugars this morning Related Data Home Medications Medication Instructions Recorded Confirmed hydrochlorothiazide 25 mg tablet 25 mg PO QDAY #0 09/21/16 04/25/18 liraglutide 0.6 mg/0.1 mL (18 mg/3 1.8 mg SQ QAM #0 09/21/16 04/25/18 mL) subcutaneous pen injector (Victoza 2-Lanre) losartan 50 mg tablet 50 mg PO QDAY #0 09/21/16 04/25/18 melatonin 10 mg capsule 20 mg PO HS PRN #0 09/21/16 04/05/18 metformin 500 mg tablet 2 tab PO BID #0 09/21/16 04/25/18 (Glucophage) omeprazole 20 mg capsule,delayed 20 mg PO PRN PRN #0 09/21/16 04/25/18 release insulin glargine 100 unit/mL (3 28 unit SUBCUT DAILY 04/05/18 04/05/18 mL) subcutaneous pen Previous Rx's Medication Instructions Recorded ondansetron 4 mg disintegrating 4 mg PO QID PRN #20 tab 04/06/18 tablet oxycodone-acetaminophen 5 mg-325 1 tab PO Q4-6H PRN #30 tab 04/06/18 mg tablet hydrocodone 5 mg-acetaminophen 325 1 tab PO Q4-6H PRN #5 tab 06/06/19 mg tablet ([place]) apixaban 5 mg tablet 5 mg PO BID #60 tab 08/09/20 Allergies Allergy/AdvReac Type Severity Reaction Status Date / Time Penicillins [PENICILLINS] Allergy RASH Verified 02/09/21 09:13 Review of Systems Constitutional Constitutional: Denies fever(s) Cardiovascular Cardiovascular: Reports as per HPI, Reports system reviewed and no additional complaints, except as documented, Denies chest pain, Reports rapid heart rate, Reports irregular heart rhythm, Denies lightheadedness and Reports dyspnea Respiratory Respiratory: Reports dyspnea Gastrointestinal Gastrointestinal: Reports system reviewed and no additional complaints, except as documented Musculoskeletal Comments: No edema Integumentary/Breasts Skin/Breast: Reports system reviewed and no additional complaints, except as documented Hematologic/Lymphatic On Anticoagulants: Yes Patient History Medical History (Updated 02/09/21 @ 11:35 by Bam Ray DO) Diabetes Gastroesophageal reflux disease Hypertension Paroxysmal atrial fibrillation Social History marital status: household members: spouse occupational status: employed Smoking Status: Never smoker substance use type: does not use Smoking Status: Never smoker alcohol intake frequency: holidays/special occasions only Substance Use Type: does not use Exam Initial Vital Signs Initial Vital Signs: Vital Signs Temperature 97.9 F 02/09/21 09:14 Pulse Rate 129 H 02/09/21 09:14 Respiratory Rate 22 02/09/21 09:14 Blood Pressure 125/81 02/09/21 09:14 Pulse Oximetry 96 02/09/21 09:14 Const General: cooperative, healthy appearing, comfortable and well developed Limitations: mental status not altered HENND Head: normal to inspection and normocephalic Resp Effort & Inspection: normal respiratory effort Auscultation: clear to auscultation bilaterally Cardio Rate: tachycardic Rhythm: abnormal rhythm Pulses: radial pulses present GI Inspection: normal to inspection Skin General: no rashes or lesions noted Neuro General: patient alert, patient awake and moves all extremities Extrem General: normal to inspection and capillary refill normal Psych Appearance: grossly normal and well kempt Procedures Cardioversion Consent Signed: Yes Indication: AFib Stability: Stable Number of attempts (shocks): 2 Joules used: 120 and 150 Cardiac rhythm post-cardioversion: Sinus rhythm Procedural Sedation Consent signed: Yes Time out performed: Yes Indication: cardioversion Presedation Evaluation: Stable AFib ASA Class: II Mallampati Airway Classification: Class II Preparation: cardiac exercise specialist applied, pulse oximeter, capnometry used, supplemental O2 applied, suction/airway equipment at bedside and IV secured Fentanyl: IV Fentanyl dose (mcg): 13 IV Propofol dose (mg): 155 Intraservice time/total sedation time (min): 15 ED Sedation Level: Moderate (Concious) Patient Tolerated Procedure: Well Complications: none Course Orders Ordered: ED Orders 02/09/21 09:09 EKG-12 Lead Stat RT Consult Eval and Treat Now 02/09/21 09:14 Basic Metabolic Panel Stat COVID19 -Nasal swab/Pre-Proc Stat Complete Blood Count AUTO DIFF Stat Magnesium Stat 02/09/21 11:06 EKG-12 Lead Stat Sodium Chloride (Normal Saline 0.9%) 1,000 mls @ 125 mls/hr IV CONT SANCHO Last Admin: 02/09/21 09:56 Dose: 125 mls/hr Documented by: MATT Discontinued Medications Fentanyl (Fentanyl 100 Mcg/2 Ml Inj) 12.5 mcg IV NOW ONE Stop: 02/09/21 09:11 Last Admin: 02/09/21 10:45 Dose: 12.5 mcg Documented by: MATT Propofol (Propofol 200 Mg/20 Ml Vial) 100 mg IV NOW ONE Stop: 02/09/21 09:11 Last Admin: 02/09/21 10:46 Dose: 100 mg Documented by: MATT Vital Signs Vital signs: Vital Signs - 8 hr 02/09/21 09:14 02/09/21 10:35 02/09/21 10:49 Temperature 97.9 F 97.1 F L Pulse Rate 129 H 98 H 100 H Respiratory Rate 22 22 17 Blood Pressure 125/81 120/71 118/67 Pulse Oximetry 96 96 97 02/09/21 10:55 02/09/21 11:03 02/09/21 11:12 Temperature Pulse Rate 83 80 73 Respiratory Rate 22 24 24 Blood Pressure 119/85 119/82 118/74 Pulse Oximetry 98 96 96 MDM - Arrhythmia/Palpitations Lab Data Attestation: I reviewed the patient's lab results. Result diagrams: 02/09/21 09:14 02/09/21 09:14 Labs: Lab Results 02/09/21 02/09/21 02/09/21 Range/Units 09:14 09:14 09:14 WBC 6.2 (4.5-11.0) X10^3/uL RBC 4.51 (4.5-5.9) X10^6/uL Hgb 14.1 (13.5-17.5) g/dL Hct 41.4 (41-53) % MCV 91.9 (80-100) fL MCH 31.3 (26-34) PG MCHC 34.0 (30-36) % RDW 13.1 (11.6-14.8) % Plt Count 264 (150-400) X10^3/uL Neut % (Auto) 47.5 L (50-75) % Lymph % (Auto) 39.3 (25-40) % [place] % (Auto) 10.1 (3-14) % Eos % (Auto) 1.9 L (2-4) % Baso % (Auto) 1.2 (0-2) % Neut # (Auto) 2900 (9376-9631) /uL Lymph # (Auto) 2400 (6723-2230) /uL [place] # (Auto) 600 (0-900) /uL Eos # (Auto) 100 (0-450) /uL Baso # (Auto) 100 (0-100) /uL Sodium 138 (137-145) mmol/L Potassium 4.1 (3.4-5.1) mmol/L Chloride 105 (98-107) mmol/L Carbon Dioxide 27 (22-32) mmol/L BUN 14 (9-20) mg/dL Creatinine 0.69 (0.66-1.25) mg/dL Estimated GFR > 60.0 (>60) mL/min BUN/Creatinine Ratio 20.3 (6-22) Glucose 166 H (70-100) mg/dL Calcium 9.5 (8.4-10.2) mg/dL Magnesium 1.7 (1.6-2.3) mg/dL SARS-CoV-2 (PCR) Negative (Negative) ECG Data Attestation: I personally reviewed and interpreted this ECG as follows: Prior ECG tracings: available for review Interpretation: Atrial fibrillation Ventricular rate 114 Normal axis Normal QRS Normal QTC No ST T wave changes Post cardioversion EKG Sinus rhythm Ventricular rate of 81 Normal axis Normal QRS Normal QTC No ST T wave changes MDM Narrative Medical decision making narrative: Patient did arrive in AFib. He is on Eliquis and has been taking it twice a day for at least the past 4 weeks if not longer. Denied missing any doses. He did take his medication this morning. Has had a history of paroxysmal AFib. Has had cardioversions in the past. We discussed the risks and benefits of rate control versus rhythm control and he would like to proceed with cardioversion. Consent was signed. Patient has had issues with being wake during his 1st cardioversion. He was given a small amount of fentanyl. He then was initially given 130 mg of propofol fall. Initial shock was 120 joules. This did convert him to a sinus rhythm. He remained in sinus rhythm for approximately 30 seconds and then reverted back to atrial fibrillation once again. He was administered an additional 15 mg of propofol fall because he was starting to wake up. A 2nd shock of 150 joules again was successful at converting him to sinus rhythm. He maintained this. He recovered from the sedation without problems. Did not remember the event. He has an appointment with his cushion stuffer. He is going to have a Holter monitor coming up soon and then have a discussion about an ablation. He was given return precautions and follow-up instructions. He expressed understanding and agreement. Discharge Plan Departure Patient Disposition: Home Clinical Impression: Atrial fibrillation status post cardioversion Instructions: DI for Cardioversion, DI for Atrial Fibrillation Activity Restrictions/Additional Instructions: It is important that you continue to take all of your medications as directed. Keep your appointment that you have with your cushion stuffer for the Holter monitor and further workup. Return to the emergency department for any new or worsening symptoms. Prescriptions: No Action metformin [Glucophage] 500 MG tablet 2 tab PO BID Qty: 0 0RF Victoza 2-Lanre 0.6 MG/0.1 ML pen injector 1.8 mg SQ QAM Qty: 0 0RF losartan 50 MG tablet 50 mg PO QDAY Qty: 0 0RF hydrochlorothiazide 25 MG tablet 25 mg PO QDAY Qty: 0 0RF melatonin 10 MG capsule 20 mg PO HS PRN (Reason: Sleep) Qty: 0 0RF omeprazole 20 MG capsule,delayed release(DR/EC) 20 mg PO PRN PRN (Reason: Acid Reflux) Qty: 0 0RF insulin glargine 100 unit/mL (3 mL) Insulin Pen 28 unit SUBCUT DAILY 0RF oxycodone-acetaminophen 5-325 mg tablet 1 tab PO Q4-6H PRN (Reason: pain) Qty: 30 0RF ondansetron 4 mg tablet,disintegrating 4 mg PO QID PRN (Reason: nausea and vomiting) Qty: 20 0RF hydrocodone-acetaminophen [[place]] 5-325 mg tablet 1 tab PO Q4-6H PRN (Reason: pain) Qty: 5 0RF apixaban 5 mg tablet 5 mg PO BID Qty: 60 1RF
[2021-02-09 09:22] LABS: Add Manual Diff / Slide Review NO; Basophils Absolute Auto 100 /uL (0-100); Basophils Percent Auto 1.2 % (0-2); Eosinophils Absolute Auto 100 /uL (0-450); Eosinophils Percent Auto 1.9 % (2-4); Hematocrit 41.4 % (41-53); Hemoglobin 14.1 g/dL (13.5-17.5); Lymphocytes Absolute Auto 2400 /uL (1100-4500); Lymphocytes Percent Auto 39.3 % (25-40); Mean Corpuscular Hemoglobin 31.3 PG (26-34); Mean Corpuscular Volume 91.9 fL (80-100); Monocytes Absolute Auto 600 /uL (0-900); Monocytes Percent Auto 10.1 % (3-14); Neutrophils Absolute Auto 2900 /uL (1500-7000); Neutrophils Percent Auto 47.5 % (50-75); Platelet Count 264 X10^3/uL (150-400); Red Blood Cell Count 4.51 X10^6/uL (4.5-5.9); Red Cell Distribution Width 13.1 % (11.6-14.8); White Blood Cell Count 6.2 X10^3/uL (4.5-11.0)
[2021-02-09 09:36] LABS: BUN Creatinine Ratio 20.3 (6-22); Blood Urea Nitrogen 14 mg/dL (9-20); Calcium 9.5 mg/dL (8.4-10.2); Carbon Dioxide 27 mmol/L (22-32); Chloride 105 mmol/L (98-107); Estimated Glomerular Filt Rate > 60.0 mL/min (>60); Glucose 166 mg/dL (70-100); HEMOLYSIS < 15 (0-50); Magnesium 1.7 mg/dL (1.6-2.3); Potassium 4.1 mmol/L (3.4-5.1); Sodium 138 mmol/L (137-145)
[2021-02-09 09:41] LABS: COVID19 -Nasal RAPID Negative (Negative)
[2021-02-09] MEDS: SODIUM CHLORIDE 0.9% 1,000 ML 125 ML IV (09:56)
[2021-02-09 10:35] VITALS: BP 120/71; PULSE 98; RESP 22; TEMP 36.2; O2SAT 96
[2021-02-09] MEDS: fentaNYL 100 MCG/2 ML INJ 12.5 MCG IV (10:45)
[2021-02-09] MEDS: propofoL 200 MG/20 ML VIAL 100 MG IV (10:46)
[2021-02-09 10:49] VITALS: BP 118/67; BP 120/79; PULSE 100; PULSE 127; RESP 17; RESP 24; O2SAT 96; O2SAT 97
[2021-02-09 10:55] VITALS: BP 119/85; PULSE 83; RESP 22; O2SAT 98
[2021-02-09 11:03] VITALS: BP 119/82; PULSE 80; RESP 24; O2SAT 96
--- NOTE | 2021-02-09 11:09 | PC.NURSE ---
100mg Propofol IV @ 10.49 30mg Propofol IV @ 10.50 Shock initiated 25mg Propofol IV @ 10.55 Shock initiated
[2021-02-09 11:12] VITALS: BP 118/74; PULSE 73; RESP 24; O2SAT 96
== END 2021-02-09 11:52 | disposition home or self-care (01) ==
PROVIDERS: Emergency Provider Emergency Medicine
DX: I48.0 Paroxysmal atrial fibrillation (principal); Z23 Encounter for immunization
CPT/HCPCS: 36415; 80048; 83735; 85025; 87635; 92960; 93005; 96360; 96361; 99152; 99285; 99291; C9803; J2704; J3010

== ENCOUNTER → 2021-03-07 11:51 | Outpatient (CLI) | payer OTHER, SELFPAY ==
[2018-04-05 06:13] VITALS: BMI 33.0
[2021-03-07 19:32] LABS: COVID19 -Nasal RAPID Negative (Negative)
== END ==
PROVIDERS: Visit Provider Nurse Practitioner Family
DX: Z01.818 Encounter for other preprocedural examination (principal); Z20.822 Contact with and (suspected) exposure to COVID-19
CPT/HCPCS: 87635

== ENCOUNTER → 2021-03-10 13:14 | Outpatient (CLI) | payer OTHER, SELFPAY ==
[2018-04-05 06:13] VITALS: BMI 33.0
--- NOTE | 2021-03-10 | DI.ECHO.S_ITS ---
[facility] +---------+ : : [address] : : : : [id number] : : : : Phone: [phone]+ Echocardiogram Report + + :Name: SANDY LEVINE Study Date: 03/10/2021 Height: 71 in : :[facility] ReadingLocation: Weight: 230 lb : : Gender: Male BSA: 2.2 m2 : :: 1965 Age: 55 yrs BP: 132/83 mmHg: :Reason For Study: ATRIAL FIBRILLATION : :Ordering Physician: YANETH, : :MIKEY Performed By: Megan Galvez : :Referring: MIKEY DUNBAR : + + Interpretation Summary 1) Normal left ventricular thickness and size with low normal systolic function (EF 50-55%). 2) Normal right ventricular size and function. 3) No significant valvular abnormalities. 4) The aortic root is mildly to moderately dilated at 4.3cm. 5) No prior Echo available for comparison. Procedure: A two-dimensional transthoracic echocardiogram with color flow and Doppler was performed. The study quality was technically adequate. There is no prior echocardiogram noted for this patient. The patient was in sinus rhythm with heart rates between 72-85 bpm during the exam. Left Ventricle: The left ventricle is normal in size and wall thickness. The ejection fraction is estimated to be 50-55%. There are no focal wall motion abnormalities. Right Ventricle: The right ventricle is borderline dilated. The right ventricular systolic function is normal. Atria: The left atrium is moderately dilated. Right atrial size is normal. There is no Doppler evidence for an interatrial shunt. Mitral Valve: The mitral valve is normal in structure and function. There is trace mitral regurgitation. Aortic Valve: The aortic valve is trileaflet. The aortic valve opens well. There is no aortic valve stenosis. There is mild aortic regurgitation. Tricuspid Valve: The tricuspid valve is normal in structure and function. There is trace tricuspid regurgitation. Pulmonary artery pressures cannot be estimated because of the lack of a measurable TR jet velocity. Pulmonic Valve: The pulmonic valve leaflets are thin and pliable; valve motion is normal. There is no pulmonic valvular regurgitation. Great Vessels: The aortic root is mildly to moderately dilated. The ascending aorta is mildly enlarged. The IVC is of normal diameter and collapses greater than 50% with a sniff. This suggests a low right atrial pressure of 3 mm Hg. Pericardium/ Pleura There is no pericardial effusion. There is no pleural effusion. MMode/2D Measurements & Calculations LVIDd: 4.8 cm LVOT diam: 2.4 cm LVIDs: 3.2 cm Ao root diam: 4.3 cm FS: 33.0 % asc Aorta Diam: 3.7 cm IVSd: 0.97 cm Ao Arch Diam (Prox Trans): 3.0 cm LVPWd: 0.97 cm LV chapman. diameter/BSA (cm/m^2): 2.1 LV sys. diameter/BSA (cm/m^2): 1.4 LA A2 area: 25.7 cm2 RA long axis: 5.0 cm LA A4 area: 21.0 cm2 RA area: 16.4 cm2 LA length (vol): 5.6 cm RA vol: 45.9 ml LA vol: 82.4 ml RA : 20.5 ml/m2 LA vol index: 36.8 ml/m2 IVC diam: 1.1 cm RVD1 (basal): 4.2 cm TAPSE: 2.5 cm Doppler Measurements & Calculations Ao V2 max: 117.7 cm/sec LVOT Max Stu: 92.3 cm/sec Ao V2 mean: 85.6 cm/sec LV V1 max P.4 mmHg Ao max P.5 mmHg LV V1 VTI: 18.3 cm Ao mean P.1 mmHg VON(I,D): 4.1 cm2 Ao V2 VTI: 21.0 cm VON(V,D): 3.7 cm2 sev ratio: 0.87 VON indexed to BSA (cm^2/m^2): 1.8 MV E max stu: 61.0 cm/sec PA V2 max: 117.4 cm/sec MV A max stu: 53.2 cm/sec PA V2 mean: 77.9 cm/sec MV E/A: 1.1 PA mean P.7 mmHg Med Peak E' Stu: 7.3 cm/sec PA pr(Accel): 50.7 mmHg E/E' med: 8.4 Lat Peak E' Stu: 12.2 cm/sec E/E' lat: 5.0 E/e' average: 6.7 MV dec time: 0.26 sec SV(LVOT): 85.7 ml Reading Physician:09:20 AM
--- NOTE | 2021-03-10 16:04 | PM.TREADMILL ---
Cardiac Stress Test Report Referral & Results Date Patient Seen: 03/10/21 Time Patient Seen: 16:04 Requesting provider: Mike Dunbar Indication: atrial fibrillation Rest ECG: Sinus rhythm Procedure Note: Standard Remy protocol, 9:30, 10.2 METS Fair exercise capacity, RADHA +3% Normal hemodynamic response to exercise No chest pain or anginal symptoms at peak exercise No significant ST changes at peak exercise Isolated PVC, bigeminy, trigeminy and couplets noted; asymptomtic Impression: Normal exercise stress test Please note: Actual ECG tracings can be found in the PACS system.
--- NOTE | 2021-03-12 09:01 | DI.NM.S_ITS ---
DATE OF SERVICE: 03/10/2021 PROCEDURE PERFORMED: Exercise treadmill stress test without imaging. ORDERING PROVIDER: Mike Dunbar MD. INDICATONS: The patient is a 55-year-old diabetic male with paroxysmal atrial fibrillation. FINDINGS: 1. The patient was able to exercise for 9 minutes 30 seconds on a standard Remy protocol suggesting fair exercise capacity with an RADHA of +3%, achieving 10.2 METS. 2. He had a normal heart rate and blood pressure response to exercise, achieving a maximum heart rate of 169 BPM (102% of his predicted maximum). 3. He had no chest discomfort or other anginal symptoms. 4. His resting ECG shows sinus rhythm with normal ST segments. With stress, there is considerable motion artifact but probable mild but nonspecific, predominantly upsloping, ST depression at peak exercise that resolves within 2 minutes of recovery. There were occasional isolated PVCs but no complex ventricular ectopy. IMPRESSION: 1. Probable normal exercise treadmill study for ischemia. 2. Fair exercise capacity without angina and only vague, nonspecific ST- segment shifts that resolved promptly in recovery. There were occasional isolated PVCs, but no complex ventricular ectopy. Kishan Aleman - LUIS/crispin/JASON doc#: [id number]/job#: [id number] dd: 03/11/2021 15:33:00 dt: 03/11/2021 18:02:00 DICTATING MD/COPIES TO: Cristobal Fabian MD; Mike Dunbar MD COPIES MNE: SAM;
== END ==
PROVIDERS: Referring Provider Internal Medicine Cardiovascular Disease; Visit Provider Internal Medicine Cardiovascular Disease
DX: I48.19 Other persistent atrial fibrillation (principal); I49.3 Ventricular premature depolarization; I51.7 Cardiomegaly
CPT/HCPCS: 93017; 93306

== ENCOUNTER 2021-04-07 19:54 | Emergency (ER) | payer OTHER, SELFPAY ==
[2018-04-05 06:13] VITALS: BMI 33.0
[2021-04-07 20:02] VITALS: BP 142/84; PULSE 100; RESP 16; TEMP 36.2; O2SAT 92; BMI 32.3
--- NOTE | 2021-04-07 20:07 | DI.RAD.S_ITS ---
PROCEDURE: XR CHEST 1V INDICATIONS: chest pain TECHNIQUE: One view of the chest was acquired. COMPARISON: [facility], CR, XR CHEST 1V, 08/09/2020, 6:40. FINDINGS: Surgical changes and devices: None. Lungs and pleura: Lungs are clear. No pleural effusions or pneumothorax. Mediastinum: Mediastinal contours appear normal. Heart size is normal. Bones and chest wall: No suspicious bony lesions. Overlying soft tissues appear unremarkable. IMPRESSION: No acute cardiopulmonary disease. Dictated by: Jon Carey M.D. on 04/07/2021 at 20:47 Approved by: Jon Carey M.D. on 04/07/2021 at 20:48
[2021-04-07 20:47] LABS: INR 1.2 (0.9-1.3)
[2021-04-07 20:49] LABS: PTT Partial Thromboplastin Tim 36 SECONDS (26.4-36.2)
[2021-04-07 20:51] LABS: Alanine Aminotransferase 33 IU/L (<50); Albumin 4.4 g/dL (3.5-5.0); Albumin Globulin Ratio 1.5 (1.0-2.8); Alkaline Phosphatase 86 U/L (38-126); Aspartate Aminotransferase 33 IU/L (17-59); Bilirubin Total 0.8 mg/dL (0.2-1.3); Blood Urea Nitrogen 20 mg/dL (9-20); Calcium 10.2 mg/dL (8.4-10.2); Carbon Dioxide 25 mmol/L (22-32); Chloride 102 mmol/L (98-107); Creatine Kinase 116 U/L (55-170); Estimated Glomerular Filt Rate > 60.0 mL/min (>60); Globulin 2.9 g/dL (1.7-4.1); Glucose 162 mg/dL (70-100); HEMOLYSIS 15 (0-50); Lipase 121 U/L (23-300); Magnesium 1.6 mg/dL (1.6-2.3); Potassium 3.9 mmol/L (3.4-5.1); Sodium 136 mmol/L (137-145); Total Protein 7.3 g/dL (6.3-8.2)
[2021-04-07 20:58] LABS: Add Manual Diff / Slide Review NO; Basophils Absolute Auto 100 /uL (0-100); Basophils Percent Auto 0.9 % (0-2); Eosinophils Absolute Auto 300 /uL (0-450); Eosinophils Percent Auto 3.4 % (2-4); Hematocrit 41.2 % (41-53); Hemoglobin 14.3 g/dL (13.5-17.5); Lymphocytes Absolute Auto 3400 /uL (1100-4500); Lymphocytes Percent Auto 40.1 % (25-40); Mean Corpuscular HGB Conc 34.6 % (30-36); Mean Corpuscular Hemoglobin 31.8 PG (26-34); Monocytes Absolute Auto 700 /uL (0-900); Monocytes Percent Auto 8.5 % (3-14); Neutrophils Absolute Auto 4000 /uL (1500-7000); Neutrophils Percent Auto 47.1 % (50-75); Platelet Count 213 X10^3/uL (150-400); Red Blood Cell Count 4.48 X10^6/uL (4.5-5.9); Red Cell Distribution Width 13.3 % (11.6-14.8); White Blood Cell Count 8.5 X10^3/uL (4.5-11.0)
[2021-04-07 21:01] LABS: Troponin I < 0.012 ng/mL (0.01-0.034)
[2021-04-07 21:07] LABS: CKMB % Relative Index 0.9 % (1.5-5.0)
[2021-04-07 23:53] VITALS: BP 144/88; PULSE 78; RESP 17; O2SAT 97
[2021-04-08] VITALS: BP 129/76; PULSE 79; RESP 9; O2SAT 96
--- NOTE | 2021-04-08 00:11 | ED_ITS ---
HPI - Arrhythmia/Palpitations General Chief Complaint: Arrhythmia/Palpitations Stated Complaint: AFIB Time Seen by Provider: 04/08/21 00:11 History of Present Illness HPI narrative: Patient left the department without being seen. Related Data Home Medications Medication Instructions Recorded Confirmed hydrochlorothiazide 25 mg tablet 25 mg PO QDAY #0 09/21/16 04/25/18 liraglutide 0.6 mg/0.1 mL (18 mg/3 1.8 mg SQ QAM #0 09/21/16 04/25/18 mL) subcutaneous pen injector (Victoza 2-Lanre) losartan 50 mg tablet 50 mg PO QDAY #0 09/21/16 04/25/18 melatonin 10 mg capsule 20 mg PO HS PRN #0 09/21/16 04/05/18 metformin 500 mg tablet 2 tab PO BID #0 09/21/16 04/25/18 (Glucophage) omeprazole 20 mg capsule,delayed 20 mg PO PRN PRN #0 09/21/16 04/25/18 release insulin glargine 100 unit/mL (3 28 unit SUBCUT DAILY 04/05/18 04/05/18 mL) subcutaneous pen Previous Rx's Medication Instructions Recorded ondansetron 4 mg disintegrating 4 mg PO QID PRN #20 tab 04/06/18 tablet oxycodone-acetaminophen 5 mg-325 1 tab PO Q4-6H PRN #30 tab 04/06/18 mg tablet hydrocodone 5 mg-acetaminophen 325 1 tab PO Q4-6H PRN #5 tab 06/05/ mg tablet ([place]) apixaban 5 mg tablet 5 mg PO BID #60 tab 08/09/20 Allergies Allergy/AdvReac Type Severity Reaction Status Date / Time Penicillins [PENICILLINS] Allergy RASH Verified 02/09/21 09:13 Patient History Medical History (Updated 04/08/21 @ 00:54 by Wendy Magaña RN) Diabetes Gastroesophageal reflux disease Hypertension Paroxysmal atrial fibrillation Social History marital status: household members: spouse occupational status: employed Smoking Status: Never smoker substance use type: does not use Smoking Status: Never smoker alcohol intake frequency: holidays/special occasions only Substance Use Type: does not use Exam Initial Vital Signs Initial Vital Signs: Vital Signs Temperature 97.1 F L 04/07/21 20:02 Pulse Rate 100 H 04/07/21 20:02 Respiratory Rate 16 04/07/21 20:02 Blood Pressure 142/84 H 04/07/21 20:02 Pulse Oximetry 92 04/07/21 20:02 Course Orders Ordered: ED Orders 04/07/21 20:07 XR chest 1V Stat EKG-12 Lead Stat 04/07/21 20:26 Complete Blood Count AUTO DIFF Stat Comprehensive Metabolic Panel Stat Lipase Stat Magnesium Stat Partial Thromboplastin Time Stat Prothrombin Time INR Stat Troponin & CK Cardiac Panel Stat Vital Signs Vital signs: Vital Signs - 8 hr 04/07/21 23:53 04/08/21 00:00 04/08/21 00:30 Pulse Rate 78 79 76 Respiratory Rate 17 9 L 16 Blood Pressure 144/88 H 129/76 140/86 Pulse Oximetry 97 96 95 MDM - Arrhythmia/Palpitations Lab Data Result diagrams: 04/07/21 20:26 04/07/21 20:26 Labs: Lab Results 04/07/21 04/07/21 04/07/21 Range/Units 20:26 20:26 20:26 WBC 8.5 (4.5-11.0) X10^3/uL RBC 4.48 L (4.5-5.9) X10^6/uL Hgb 14.3 (13.5-17.5) g/dL Hct 41.2 (41-53) % MCV 92.0 (80-100) fL MCH 31.8 (26-34) PG MCHC 34.6 (30-36) % RDW 13.3 (11.6-14.8) % Plt Count 213 (150-400) X10^3/uL Neut % (Auto) 47.1 L (50-75) % Lymph % (Auto) 40.1 H (25-40) % [place] % (Auto) 8.5 (3-14) % Eos % (Auto) 3.4 (2-4) % Baso % (Auto) 0.9 (0-2) % Neut # (Auto) 4000 (5503-0961) /uL Lymph # (Auto) 3400 (7447-1337) /uL [place] # (Auto) 700 (0-900) /uL Eos # (Auto) 300 (0-450) /uL Baso # (Auto) 100 (0-100) /uL PT 13.0 H (10.1-12.7) SECONDS INR 1.2 (0.9-1.3) APTT 36 D (26.4-36.2) SECONDS Sodium 136 L (137-145) mmol/L Potassium 3.9 (3.4-5.1) mmol/L Chloride 102 (98-107) mmol/L Carbon Dioxide 25 (22-32) mmol/L BUN 20 (9-20) mg/dL Creatinine 0.77 (0.66-1.25) mg/dL Estimated GFR > 60.0 (>60) mL/min BUN/Creatinine Ratio 26.0 H (6-22) Glucose 162 H (70-100) mg/dL Calcium 10.2 (8.4-10.2) mg/dL Magnesium 1.6 (1.6-2.3) mg/dL Total Bilirubin 0.8 (0.2-1.3) mg/dL AST 33 (17-59) IU/L ALT 33 (<50) IU/L Alkaline Phosphatase 86 (38-126) U/L Total Creatine Kinase 116 (55-170) U/L CK-MB (CK-2) 1.10 (<2.37) ng/mL CK-MB (CK-2) Rel Index 0.9 L (1.5-5.0) % Troponin I < 0.012 (0.01-0.034) ng/mL Total Protein 7.3 (6.3-8.2) g/dL Albumin 4.4 (3.5-5.0) g/dL Globulin 2.9 (1.7-4.1) g/dL Albumin/Globulin Ratio 1.5 (1.0-2.8) Lipase 121 (23-300) U/L Imaging Data Chest x-ray: Radiologist's Impresson: [address] [address] XRay Report Signed Patient: Kishan Aleman MR#: [id number] : 1965 Acct:[id number] Age/Sex: 55 / M Date of Service: 04/07/21 Loc: ED Accession Number: [id number] ?? Procedure: XR chest 1V Ordering Provider: Vianey Diez D.O. PROCEDURE:? XR CHEST 1V ? INDICATIONS:? chest pain ? TECHNIQUE:? One view of the chest was acquired.? ? COMPARISON:? [facility], CR, XR CHEST 1V, 08/09/2020, 6:40. ? FINDINGS:? ? Surgical changes and devices:? None.? ? Lungs and pleura:? Lungs are clear.? No pleural effusions or pneumothorax.? ? Mediastinum:? Mediastinal contours appear normal.? Heart size is normal.? ? Bones and chest wall:? No suspicious bony lesions.? Overlying soft tissues appear unremarkable.? ? IMPRESSION:? No acute cardiopulmonary disease. ? ? Dictated by: Jon Carey M.D. on 04/07/2021 at 20:47 ? ? Approved by: Jon Carey M.D. on 04/07/2021 at 20:48?? ECG Data Attestation: I personally reviewed and interpreted this ECG as follows: Interpretation: Sinus rhythm premature atrial complex. Rate of 98, P are 132 QRS of 92 and QTC of 462. Nonspecific change. Discharge Plan Departure Patient Disposition: Left Without Being Seen Clinical Impression: Patient left before evaluation by physician
[2021-04-08 00:30] VITALS: BP 140/86; PULSE 76; RESP 16; O2SAT 95
--- NOTE | 2021-04-08 00:51 | PC.NURSE ---
On Eliquis for afib. Uneeda himself go into Afib midnight last night. states always happens when sleeping. Seeing Dr Sweeney. Prescribed Flecinide 100mg PRN. Took one at midnight upon feeling being in afib and once this morning before work. denies CP, SOB.
== END 2021-04-08 00:54 | disposition left against medical advice (07) ==
PROVIDERS: Emergency Provider Emergency Medicine
DX: Z53.21 Procedure and treatment not carried out due to patient leaving prior to being seen by health care provider (principal)
CPT/HCPCS: 71045; 80053; 82550; 82553; 83690; 83735; 84484; 85025; 85610; 85730; 93005; 93010; 99282

== ENCOUNTER 2021-06-18 05:26 | Emergency (ER) | payer OTHER, SELFPAY ==
[2018-04-05 06:13] VITALS: BMI 33.0
[2021-06-18] VITALS (15 sets, daily range): BP systolic 105–134; BP diastolic 69–90; PULSE 66–123; RESP 12–23; TEMP 36.3–36.6; O2SAT 94–100; BMI 33.2
--- NOTE | 2021-06-18 05:37 | DI.RAD.S_ITS ---
PROCEDURE: XR CHEST 1V INDICATIONS: AFIB TECHNIQUE: One view of the chest was acquired. COMPARISON: [facility], CR, XR CHEST 1V, 04/07/2021, 20:28. FINDINGS: Surgical changes and devices: None. Lungs and pleura: Lungs are clear. No pleural effusions or pneumothorax. Mediastinum: Mediastinal contours appear normal. Heart size is normal. Bones and chest wall: No suspicious bony lesions. Overlying soft tissues appear unremarkable. IMPRESSION: No acute cardiopulmonary disease process. Dictated by: Yohana Padgett MD, PhD on 06/18/2021 at 7:35 Approved by: Yohana Padgett MD, PhD on 06/18/2021 at 7:35
[2021-06-18 05:45] LABS: Add Manual Diff / Slide Review NO; Basophils Absolute Auto 100 /uL (0-100); Basophils Percent Auto 0.7 % (0-2); Eosinophils Absolute Auto 300 /uL (0-450); Hemoglobin 14.9 g/dL (13.5-17.5); Lymphocytes Absolute Auto 3300 /uL (1100-4500); Lymphocytes Percent Auto 37.2 % (25-40); Mean Corpuscular Hemoglobin 31.2 PG (26-34); Mean Corpuscular Volume 91.9 fL (80-100); Monocytes Absolute Auto 800 /uL (0-900); Monocytes Percent Auto 9.2 % (3-14); Neutrophils Absolute Auto 4500 /uL (1500-7000); Neutrophils Percent Auto 49.9 % (50-75); Platelet Count 219 X10^3/uL (150-400); Red Blood Cell Count 4.78 X10^6/uL (4.5-5.9); Red Cell Distribution Width 13.2 % (11.6-14.8)
--- NOTE | 2021-06-18 05:45 | ED_ITS ---
HPI - Arrhythmia/Palpitations General Chief Complaint: Shortness of Breath/Dyspnea Stated Complaint: AFIB Time Seen by Provider: 06/18/21 05:43 Source: patient Mode of arrival: Ambulatory History of Present Illness HPI narrative: Patient is a now 56-year-old male with history of paroxysmal atrial fibrillation on Eliquis, insulin-dependent diabetes presenting today with heart palpitations and AFib. He says always wakes him from his sleep seem to so about twice a year he gets cardioverted. Today he feels his heart flip-flopping will come up. He denies shortness of breath dizziness, fever or chills. Related Data Home Medications Medication Instructions Recorded Confirmed hydrochlorothiazide 25 mg tablet 25 mg PO QDAY #0 09/21/16 04/25/18 liraglutide 0.6 mg/0.1 mL (18 mg/3 1.8 mg SQ QAM #0 09/21/16 04/25/18 mL) subcutaneous pen injector (Victoza 2-Lanre) losartan 50 mg tablet 50 mg PO QDAY #0 09/21/16 04/25/18 melatonin 10 mg capsule 20 mg PO HS PRN #0 09/21/16 04/05/18 metformin 500 mg tablet 2 tab PO BID #0 09/21/16 04/25/18 (Glucophage) omeprazole 20 mg capsule,delayed 20 mg PO PRN PRN #0 09/21/16 04/25/18 release insulin glargine 100 unit/mL (3 28 unit SUBCUT DAILY 04/05/18 04/05/18 mL) subcutaneous pen Previous Rx's Medication Instructions Recorded ondansetron 4 mg disintegrating 4 mg PO QID PRN #20 tab 04/06/18 tablet oxycodone-acetaminophen 5 mg-325 1 tab PO Q4-6H PRN #30 tab 04/06/18 mg tablet hydrocodone 5 mg-acetaminophen 325 1 tab PO Q4-6H PRN #5 tab 06/06/19 mg tablet ([place]) apixaban 5 mg tablet 5 mg PO BID #60 tab 08/09/20 Allergies Allergy/AdvReac Type Severity Reaction Status Date / Time Penicillins [PENICILLINS] Allergy RASH Verified 02/09/21 09:13 Review of Systems Review of Systems Narrative: GENERAL: Denies chills, fatigue, malaise, fever, sweats, travel HEENT: Denies sinus pain, ear pain, sore throat, difficulty swallowing, neck pain RESPIRATORY: Denies dyspnea, cough, wheezing, hemoptysis, sputum. CARDIOVASCULAR: See HPI GASTROINTESTINAL: Denies nausea, vomiting, abdominal pain, diarrhea, constipation, melena. : Denies dysuria, frequency, incontinence, hematuria, urinary retention, flank pain. MUSCULOSKELETAL: Denies weakness, joint pain, or bony pain SKIN: No rash, no erythema, no pruritus NEUROLOGIC: Denies weakness, dizziness, headache, numbness, change in speech, confusion PSYCHIATRIC: No concerning psychosocial issues. 12 point review of systems is negative except for those stated above and HPI Patient History Medical History (Updated 06/18/21 @ 06:45 by Tita Mckee DO) Diabetes Gastroesophageal reflux disease Hypertension Paroxysmal atrial fibrillation Social History marital status: household members: spouse occupational status: employed Smoking Status: Never smoker substance use type: does not use Smoking Status: Never smoker alcohol intake frequency: holidays/special occasions only Substance Use Type: does not use Exam Initial Vital Signs Initial Vital Signs: Vital Signs Pulse Rate 110 H 06/18/21 05:34 Respiratory Rate 13 06/18/21 05:34 Pulse Oximetry 96 06/18/21 05:34 GENERAL: Alert well-appearing 56-year-old male and in no acute distress. HEENT: Head atraumatic,EOMI, pupils reactive, face symmetric, moist mucous membranes CARDIOVASCULAR: Irregularly irregular no murmurs RESPIRATORY: Breath sounds equal bilaterally, no wheezes rales or rhonchi. ABDOMEN: Soft, nontender. Normoactive bowel sounds all 4 quadrants. No guarding or rebound. EXTREMITIES: Normal range of motion, no clubbing or edema. Neurovascularly intact NEUROLOGICAL: Alert and oriented x4.Normal gait and speech. SKIN: Warm, dry, no laceration, no petechiae, no rashes or lesions. Procedures Cardioversion Consent Signed: Yes Indication: Atrial fibrillation Stability: Stable Number of attempts (shocks): 1 Joules used: 150 Cardiac rhythm post-cardioversion: Normal sinus rhythm Procedural Sedation Consent signed: Yes Time out performed: Yes Indication: cardioversion ASA Class: II Mallampati Airway Classification: Class I IV Etomidate dose (mg): 10 Intraservice time/total sedation time (min): 12 ED Sedation Level: Moderate (Concious) Patient Tolerated Procedure: Well Complications: hypoventilation Interventions: Assist by BVM Course Orders Ordered: ED Orders 06/18/21 05:34 Complete Blood Count AUTO DIFF Stat Comprehensive Metabolic Panel Stat Lipase Stat Magnesium Stat Troponin & CK Cardiac Panel Stat 06/18/21 05:37 XR chest 1V Stat EKG-12 Lead Stat 06/18/21 06:21 EKG-12 Lead Routine Discontinued Medications Diltiazem HCl (Diltiazem 5 Mg/Ml Sdv) 10 mg IV NOW ONE Stop: 06/18/21 05:46 Last Admin: 06/18/21 05:50 Dose: 10 mg Documented by: Etomidate (Etomidate 2 Mg/Ml 10 Ml Vial) 10 mg IV NOW ONE Stop: 06/18/21 05:46 Last Admin: 06/18/21 06:13 Dose: 10 mg Documented by: Sodium Chloride (Normal Saline 0.9%) 1,000 mls @ 1,000 mls/hr IV BOLUS ONE Stop: 06/18/21 06:44 Last Admin: 06/18/21 05:49 Dose: 1,000 mls/hr Documented by: Vital Signs Vital signs: Vital Signs - 8 hr 06/18/21 05:34 06/18/21 05:38 06/18/21 05:42 Temperature 97.4 F L 97.8 F Pulse Rate 110 H 108 H 103 H Respiratory Rate 13 18 18 Blood Pressure 125/90 125/90 Pulse Oximetry 96 95 96 06/18/21 05:46 06/18/21 05:50 06/18/21 05:54 Temperature Pulse Rate 123 H 101 H 94 H Respiratory Rate 14 17 Blood Pressure 105/76 105/76 107/69 Pulse Oximetry 95 94 06/18/21 06:00 06/18/21 06:09 06/18/21 06:15 Temperature Pulse Rate 82 85 83 Respiratory Rate 12 14 22 Blood Pressure 108/69 134/87 134/87 Pulse Oximetry 94 99 98 06/18/21 06:20 06/18/21 06:25 06/18/21 06:30 Temperature Pulse Rate 80 76 70 Respiratory Rate 17 19 17 Blood Pressure 129/74 120/73 Pulse Oximetry 100 99 97 06/18/21 06:31 06/18/21 06:35 06/18/21 06:40 Temperature Pulse Rate 71 68 66 Respiratory Rate 16 20 12 Blood Pressure 110/75 112/78 111/75 Pulse Oximetry 97 98 98 MDM - Arrhythmia/Palpitations Lab Data Result diagrams: 06/18/21 05:34 06/18/21 05:34 Labs: Lab Results 06/18/21 06/18/21 Range/Units 05:34 05:34 WBC 9.0 (4.5-11.0) X10^3/uL RBC 4.78 (4.5-5.9) X10^6/uL Hgb 14.9 (13.5-17.5) g/dL Hct 44.0 (41-53) % MCV 91.9 (80-100) fL MCH 31.2 (26-34) PG MCHC 34.0 (30-36) % RDW 13.2 (11.6-14.8) % Plt Count 219 (150-400) X10^3/uL Neut % (Auto) 49.9 L (50-75) % Lymph % (Auto) 37.2 (25-40) % [place] % (Auto) 9.2 (3-14) % Eos % (Auto) 3.0 (2-4) % Baso % (Auto) 0.7 (0-2) % Neut # (Auto) 4500 (2744-9863) /uL Lymph # (Auto) 3300 (3473-2478) /uL [place] # (Auto) 800 (0-900) /uL Eos # (Auto) 300 (0-450) /uL Baso # (Auto) 100 (0-100) /uL Sodium 139 (137-145) mmol/L Potassium 4.3 (3.4-5.1) mmol/L Chloride 102 (98-107) mmol/L Carbon Dioxide 28 (22-32) mmol/L BUN 14 (9-20) mg/dL Creatinine 0.81 (0.66-1.25) mg/dL Estimated GFR > 60 (>60) mL/min BUN/Creatinine Ratio 17.3 (6-22) Glucose 143 H (70-100) mg/dL Calcium 9.4 (8.4-10.2) mg/dL Magnesium 1.7 (1.6-2.3) mg/dL Total Bilirubin 0.8 (0.2-1.3) mg/dL AST 38 (17-59) IU/L ALT 37 (<50) IU/L Alkaline Phosphatase 78 (38-126) U/L Total Creatine Kinase 194 H (55-170) U/L CK-MB (CK-2) 2.75 H (<2.37) ng/mL CK-MB (CK-2) Rel Index 1.4 L (1.5-5.0) % Troponin I < 0.012 (0.01-0.034) ng/mL Total Protein 8.1 (6.3-8.2) g/dL Albumin 4.4 (3.5-5.0) g/dL Globulin 3.7 (1.7-4.1) g/dL Albumin/Globulin Ratio 1.2 (1.0-2.8) Lipase 104 (23-300) U/L ECG Data Interpretation: Atrial fibrillation rate [address] changes no T-wave inversions similar to previous EKG EKG 2. Sinus rhythm rate 75 FL interval 150 QRS [address] changes MDM Narrative Medical decision making narrative: Patient is symptomatic atrial fibrillation. Heart rate does slow with Cardizem but he does not convert. He was easily cardioverted with etomidate. No contraindications for cardioversion he is on Eliquis and is presented a few hours after onset. Easily cardioverted. Doing much better in sinus rhythm. Discharge Plan Departure Patient Disposition: Home Clinical Impression: Atrial fibrillation Instructions: DI for Atrial Fibrillation Activity Restrictions/Additional Instructions: *You have been diagnosed with atrial fibrillation *What to do: Your easily cardioverted this time. I am sorry this has happened to you. Please follow-up with Dr. Sweeney *Continue to take medications as directed *Follow up with your primary care provider in 2-3 days or call [phone] *Return to ER if you should have increasing chest pain palpitation shortness of breath or any new, worsening or concerning symptoms Prescriptions: No Action metformin [Glucophage] 500 MG tablet 2 tab PO BID Qty: 0 0RF Victoza 2-Lanre 0.6 MG/0.1 ML pen injector 1.8 mg SQ QAM Qty: 0 0RF losartan 50 MG tablet 50 mg PO QDAY Qty: 0 0RF hydrochlorothiazide 25 MG tablet 25 mg PO QDAY Qty: 0 0RF melatonin 10 MG capsule 20 mg PO HS PRN (Reason: Sleep) Qty: 0 0RF omeprazole 20 MG capsule,delayed release(DR/EC) 20 mg PO PRN PRN (Reason: Acid Reflux) Qty: 0 0RF insulin glargine 100 unit/mL (3 mL) Insulin Pen 28 unit SUBCUT DAILY 0RF oxycodone-acetaminophen 5-325 mg tablet 1 tab PO Q4-6H PRN (Reason: pain) Qty: 30 0RF ondansetron 4 mg tablet,disintegrating 4 mg PO QID PRN (Reason: nausea and vomiting) Qty: 20 0RF hydrocodone-acetaminophen [[place]] 5-325 mg tablet 1 tab PO Q4-6H PRN (Reason: pain) Qty: 5 0RF apixaban 5 mg tablet 5 mg PO BID Qty: 60 1RF Referrals: Elier Sweeney MD [Physician] -
[2021-06-18] MEDS: SODIUM CHLORIDE 0.9% 1,000 ML 1000 ML IV (05:49)
[2021-06-18] MEDS: dilTIAZem 5 MG/ML SDV 10 MG IV (05:50)
[2021-06-18 05:52] LABS: Alanine Aminotransferase 37 IU/L (<50); Albumin 4.4 g/dL (3.5-5.0); Albumin Globulin Ratio 1.2 (1.0-2.8); Alkaline Phosphatase 78 U/L (38-126); Aspartate Aminotransferase 38 IU/L (17-59); BUN Creatinine Ratio 17.3 (6-22); Bilirubin Total 0.8 mg/dL (0.2-1.3); Blood Urea Nitrogen 14 mg/dL (9-20); Calcium 9.4 mg/dL (8.4-10.2); Carbon Dioxide 28 mmol/L (22-32); Chloride 102 mmol/L (98-107); Creatine Kinase 194 U/L (55-170); Estimated Glomerular Filt Rate > 60 mL/min (>60); Globulin 3.7 g/dL (1.7-4.1); Glucose 143 mg/dL (70-100); HEMOLYSIS 19 (0-50); Lipase 104 U/L (23-300); Magnesium 1.7 mg/dL (1.6-2.3); Potassium 4.3 mmol/L (3.4-5.1); Sodium 139 mmol/L (137-145); Total Protein 8.1 g/dL (6.3-8.2)
[2021-06-18 06:04] LABS: Troponin I < 0.012 ng/mL (0.01-0.034)
[2021-06-18 06:07] LABS: CKMB % Relative Index 1.4 % (1.5-5.0); Creatine Kinase MB 2.75 ng/mL (<2.37)
[2021-06-18] MEDS: ETOMIDATE 2 MG/ML 10 ML VIAL 10 MG IV (06:13)
== END 2021-06-18 06:52 | disposition home or self-care (01) ==
PROVIDERS: Emergency Provider Emergency Medicine
DX: I48.91 Unspecified atrial fibrillation (principal); Z79.01 Long term (current) use of anticoagulants
CPT/HCPCS: 36415; 71045; 80053; 82550; 82553; 83690; 83735; 84484; 85025; 92960; 93005; 96374; 99152; 99284

== ENCOUNTER → 2022-07-09 06:13 | Outpatient (CLI) | payer OTHER, SELFPAY ==
[2018-04-05 06:13] VITALS: BMI 33.0
--- NOTE | 2022-07-09 | DI.ECHO.S_ITS ---
[place]---------+ [facility] +---------+ : : [address] [place] : : : : [id number] : : : : Phone: [phone] Echocardiogram Report + + :Name: SANDY LEVINE Study Date: 07/09/2022 Height: 71 in : :[facility] ReadingLocation: Weight: 237 lb : : Gender: Male BSA: 2.3 m2 : :: 1965 Age: 57 yrs BP: 110/74 mmHg: :Reason For Study: OTHER SPECIFIED DISORDERS OF ARTERIES HR: 70 : :Ordering Physician: YANETH, : :MIKEY Performed By: ELLIOTT CAREY : :Referring: MIKEY DUNBAR : + + Interpretation Summary 1) Normal left ventricular thickness and size with normal systolic function (EF 55-60%). 2) Mildly enlarged right ventricle with normal function. 3) No significant valvular abnormalities. 4) The aortic root is mildly to moderately dilated at 4.3cm. 5) Compared to the Echo done 03/10/2021, no significant change. Procedure: A two-dimensional transthoracic echocardiogram with color flow and Doppler was performed. The study quality was technically adequate. Comparison is made with the echocardiogram of 03/10/2021. The patient was in normal sinus rhythm during the exam. Left Ventricle: The left ventricle is normal in size and wall thickness. Left ventricular systolic function is normal. The ejection fraction is estimated to be 55-60%. Left ventricular wall motion is normal. Diastolic parameters suggest a relaxation abnormality of the left ventricle, consistent with probable normal filling pressures. Right Ventricle: The right ventricle is mildly dilated. The right ventricular systolic function is normal. Atria: The left atrium is moderately dilated. Right atrial size is normal. There is no Doppler evidence for an interatrial shunt. Mitral Valve: The mitral valve is normal in structure and function. There is trace mitral regurgitation. Aortic Valve: The aortic valve is trileaflet. The aortic valve opens well. There is no aortic valve stenosis. There is mild aortic regurgitation. Tricuspid Valve: The tricuspid valve is normal in structure and function. There is trace tricuspid regurgitation. Pulmonary artery pressures cannot be estimated because of the lack of a measurable TR jet velocity. Pulmonic Valve: The pulmonic valve leaflets are thin and pliable; valve motion is normal. There is trace pulmonic regurgitation. Great Vessels: The aortic root is mildly to moderately dilated at 4.3 cm. This is unchanged compared to the previous study. The ascending aorta is mildly enlarged. The inferior vena cava was not visualized. Pericardium/ Pleura There is no pericardial effusion. There is no pleural effusion. MMode/2D Measurements & Calculations LVIDd: 5.0 cm LVOT diam: 2.1 cm LVIDs: 3.2 cm Ao root diam: 4.3 cm FS: 36.0 % asc Aorta Diam: 3.8 cm IVSd: 1.1 cm LVPWd: 1.2 cm LV chapman. diameter/BSA (cm/m^2): 2.2 LV sys. diameter/BSA (cm/m^2): 1.4 LA A2 area: 25.1 cm2 RA long axis: 5.5 cm LA A4 area: 21.6 cm2 LA length (vol): 6.3 cm LA vol: 72.9 ml LA vol index: 32.2 ml/m2 RVD1 (basal): 3.9 cm LVLs ap4: 7.6 cm LVLd ap2: 9.0 cm TAPSE_phl: 2.4 cm LVLs ap2: 7.8 cm Doppler Measurements & Calculations Ao V2 max: 99.1 cm/sec LVOT Max Stu: 93.3 cm/sec Ao V2 mean: 73.0 cm/sec LV V1 max P.5 mmHg Ao max P.0 mmHg LV V1 VTI: 20.2 cm Ao mean P.0 mmHg VON(I,D): 3.4 cm2 Ao V2 VTI: 20.5 cm VON(V,D): 3.3 cm2 sev ratio: 0.99 VON indexed to BSA (cm^2/m^2): 1.5 MV E max stu: 57.4 cm/sec PA V2 max: 89.4 cm/sec MV A max stu: 63.4 cm/sec PA V2 mean: 63.1 cm/sec MV E/A: 0.91 PA mean P.0 mmHg Med Peak E' Stu: 7.6 cm/sec PA pr(Accel): 6.1 mmHg E/E' med: 7.5 Lat Peak E' Tsu: 11.5 cm/sec E/E' lat: 5.0 E/e' average: 6.3 MV dec time: 0.28 sec SV(LVOT): 70.0 ml AV VR_phl: 0.94 VON(VTI)/BSA_phl: 1.5 MV P1/2t-pr_phl: 82.0 msec Reading Physician:12:03 PM
[2022-07-09 08:30] LABS: Add Manual Diff / Slide Review NO; Basophils Absolute Auto 100 /uL (0-100); Basophils Percent Auto 0.7 % (0-2); Eosinophils Absolute Auto 200 /uL (0-450); Eosinophils Percent Auto 2.6 % (2-4); Hemoglobin 14.4 g/dL (13.5-17.5); Lymphocytes Absolute Auto 2800 /uL (1100-4500); Lymphocytes Percent Auto 33.3 % (25-40); Mean Corpuscular HGB Conc 34.3 % (30-36); Mean Corpuscular Hemoglobin 32.1 PG (26-34); Mean Corpuscular Volume 93.7 fL (80-100); Monocytes Absolute Auto 700 /uL (0-900); Neutrophils Absolute Auto 4500 /uL (1500-7000); Neutrophils Percent Auto 54.4 % (50-75); Platelet Count 222 X10^3/uL (150-400); Red Blood Cell Count 4.48 X10^6/uL (4.5-5.9); Red Cell Distribution Width 12.8 % (11.6-14.8); White Blood Cell Count 8.3 X10^3/uL (4.5-11.0)
[2022-07-09 09:06] LABS: BUN Creatinine Ratio 22.7 (6-22); Blood Urea Nitrogen 17 mg/dL (9-20); Calcium 9.8 mg/dL (8.4-10.2); Carbon Dioxide 27 mmol/L (22-32); Chloride 101 mmol/L (98-107); Cholesterol 133 mg/dL (140-199); Estimated Glomerular Filt Rate > 60 mL/min (>60); Glucose 165 mg/dL (70-100); HDL Cholesterol 39 mg/dL (40-60); HEMOLYSIS < 15 (0-50); LDL Cholesterol Calculated 74 mg/dL (<100); Potassium 4.6 mmol/L (3.4-5.1); Sodium 138 mmol/L (137-145); Triglycerides 99 mg/dL (35-150)
[2022-07-10 02:07] LABS: Labcorp Hemoglobin (Hb) A1c 9.6 % (4.8-5.6)
== END ==
PROVIDERS: Referring Provider Internal Medicine Cardiovascular Disease; Visit Provider Internal Medicine Cardiovascular Disease
DX: I77.89 Other specified disorders of arteries and arterioles (principal); E11.65 Type 2 diabetes mellitus with hyperglycemia; E78.5 Hyperlipidemia, unspecified; I10 Essential (primary) hypertension; I51.7 Cardiomegaly; I77.819 Aortic ectasia, unspecified site
CPT/HCPCS: 36415; 80048; 80061; 83036; 85025; 93306

== ENCOUNTER → 2023-06-17 | Outpatient (CLI) | payer OTHER, SELFPAY ==
[2018-04-05 06:13] VITALS: BMI 33.0
--- NOTE | 2023-06-17 07:40 | DI.ECHO.S_ITS ---
[place] +---------+ [facility] : : [address] : : [place] : : [id number] : : Phone: [phone] Echocardiogram Report + + :Name: SANDY LEVINE Study Date: 06/17/2023 Height: 71 in : :Hospital ReadingLocation: Weight: 225 lb : : Gender: Male BSA: 2.2 m2 : :: 1965 Age: 57 yrs BP: 126/87 mmHg: :Reason For Study: DISORDERS OF ARTERIES AND ARTERIOLS : :Ordering Physician: YANETH, : :MIKEY Performed By: Megan Galvez : :Referring: MIKEY DUNBAR : + + Interpretation Summary 1) Normal left ventricular thickness and size with normal systolic function (EF 55-60%). 2) Normal right ventricular size and function. 3) There is mild aortic regurgitation. 4) The aortic root is mildly to moderately dilated at 4.3cm. 5) Compared to the Echo done 07/09/2022, no significant change. Procedure: A two-dimensional transthoracic echocardiogram with color flow and Doppler was performed. The study quality was technically adequate. There is no prior echocardiogram noted for this patient. The patient was in sinus rhythm with heart rates between 64-72 bpm during the exam. Left Ventricle: The left ventricle is normal in size and wall thickness. The ejection fraction is estimated to be 55-60%. Left ventricular systolic function appears normal without focal wall motion abnormalities. Diastolic parameters suggest a relaxation abnormality of the left ventricle, consistent with probable normal filling pressures. Right Ventricle: The right ventricle is normal in size and function. Atria: The left atrial size is normal. Right atrial size is normal. There is no Doppler evidence for an interatrial shunt. Mitral Valve: The mitral valve is normal in structure and function. There is trace mitral regurgitation. Aortic Valve: The aortic valve is trileaflet. The aortic valve opens well. There is no aortic valve stenosis. There is mild aortic regurgitation. Tricuspid Valve: The tricuspid valve is normal in structure and function. Pulmonary artery pressures cannot be estimated because of the lack of a measurable TR jet velocity. There is a trace or physiologic amount of tricuspid regurgitation. Pulmonic Valve: The pulmonic valve leaflets are thin and pliable; valve motion is normal. There is mild pulmonic regurgitation. Great Vessels: The aortic root is mildly to moderately dilated at 4.3 cm. The ascending aorta is mildly enlarged. The IVC is of normal diameter and collapses greater than 50% with a sniff. This suggests a low right atrial pressure of 3 mm Hg. Pericardium/ Pleura There is no pericardial effusion. There is no pleural effusion. MMode/2D Measurements & Calculations LVIDd: 5.4 cm LVOT diam: 2.3 cm LVIDs: 3.4 cm Ao root diam: 4.3 cm FS: 36.3 % asc Aorta Diam: 3.8 cm EPSS: 0.81 cm Ao Arch Diam (Prox Trans): 3.0 cm IVSd: 0.97 cm LVPWd: 0.80 cm LV chapman. diameter/BSA (cm/m^2): 2.4 LV sys. diameter/BSA (cm/m^2): 1.5 LA A2 area: 19.8 cm2 RA long axis: 5.7 cm LA A4 area: 18.3 cm2 RA area: 16.4 cm2 LA length (vol): 5.6 cm RA vol: 40.4 ml LA vol: 54.5 ml RA : 18.2 ml/m2 LA vol index: 24.6 ml/m2 IVC diam: 1.1 cm RVD1 (basal): 3.7 cm RVD2 (mid): 3.6 cm TAPSE: 2.1 cm Doppler Measurements & Calculations Ao V2 max: 114.5 cm/sec LVOT Max Stu: 84.5 cm/sec Ao V2 mean: 84.2 cm/sec LV V1 max P.9 mmHg Ao max P.2 mmHg LV V1 VTI: 18.1 cm Ao mean P.1 mmHg VON(I,D): 3.4 cm2 Ao V2 VTI: 22.5 cm VON(V,D): 3.1 cm2 sev ratio: 0.80 VON indexed to BSA (cm^2/m^2): 1.5 MV E max stu: 52.6 cm/sec PA V2 max: 93.3 cm/sec MV A max stu: 54.2 cm/sec PA V2 mean: 64.0 cm/sec MV E/A: 0.97 PA mean P.8 mmHg Med Peak E' Stu: 5.9 cm/sec PA pr(Accel): 41.3 mmHg E/E' med: 8.9 Lat Peak E' Stu: 10.3 cm/sec E/E' lat: 5.1 E/e' average: 7.0 MV dec time: 0.28 sec SV(LVOT): 76.2 ml Reading Physician:11:17 AM
== END ==
LOC: ECHO 07:40
PROVIDERS: PCP Internal Medicine; Referring Provider Internal Medicine Cardiovascular Disease; Visit Provider Internal Medicine Cardiovascular Disease
DX: I35.1 Nonrheumatic aortic (valve) insufficiency (principal); I37.1 Nonrheumatic pulmonary valve insufficiency; I77.810 Thoracic aortic ectasia; I77.89 Other specified disorders of arteries and arterioles
CPT/HCPCS: 93306

== ENCOUNTER 2024-04-07 05:26 | Emergency (ER) | payer OTHER, SELFPAY ==
[2018-04-05 06:13] VITALS: BMI 33.0
[2024-04-07] VITALS (29 sets, daily range): BP systolic 100–191; BP diastolic 65–112; PULSE 62–147; RESP 9–28; O2SAT 93–98; BMI 33.0
--- NOTE | 2024-04-07 05:31 | DI.RAD.S_ITS ---
PROCEDURE: XR CHEST 1V INDICATIONS: chest pain TECHNIQUE: One view of the chest was acquired. COMPARISON: [facility], CR, XR CHEST 1V, 06/18/2021, 5:38. [facility], CR, XR CHEST 1V, 04/07/2021, 20:28. FINDINGS: Surgical changes and devices: None. Lungs and pleura: Lungs are clear. No pleural effusions or pneumothorax. Mediastinum: Mediastinal contours appear normal. Heart size is normal. Bones and chest wall: No suspicious bony lesions. Overlying soft tissues appear unremarkable. IMPRESSION: No acute cardiopulmonary abnormality is seen. Agree with preliminary report. Dictated by: Tristen Sharma M.D. on 04/07/2024 at 6:55 Approved by: Tristen Sharma M.D. on 04/07/2024 at 6:56
--- NOTE | 2024-04-07 05:32 | EKG_ITS ---
[facility] [address] [place] [address] Test Date: 2024-04-07 Pat Name: Kishan Aleman Department: [facility] Room: Gender: Male Pacu Nurse: PDV : 1965 Requested By: Order Number: [id number] Reading MD: Jossue Llanos MD Measurements Intervals [place] Rate: 109 P: MA: QRS: -36 QRSD: 138 T: -23 QT: 354 QTc: 476 Interpretive Statements Atrial fibrillation with rapid ventricular response Left axis deviation Right bundle branch block Electronically Signed On 04-07-2024 6:51:22 PST by Jossue Llanos MD
[2024-04-07] MEDS: ASPIRIN 81 MG CHEW TAB 324 MG PO (05:38)
[2024-04-07 05:40] LABS: Add Manual Diff / Slide Review NO; Basophils Absolute Auto 100 /uL (0-100); Basophils Percent Auto 0.7 % (0-2); Eosinophils Absolute Auto 400 /uL (0-450); Eosinophils Percent Auto 4.3 % (2-4); Hematocrit 43.7 % (41-53); Hemoglobin 14.8 g/dL (13.5-17.5); Lymphocytes Absolute Auto 3400 /uL (1100-4500); Lymphocytes Percent Auto 39.5 % (25-40); Mean Corpuscular HGB Conc 33.8 % (30-36); Mean Corpuscular Hemoglobin 31.9 PG (26-34); Mean Corpuscular Volume 94.3 fL (80-100); Monocytes Absolute Auto 800 /uL (0-900); Monocytes Percent Auto 9.7 % (3-14); Neutrophils Absolute Auto 4000 /uL (1500-7000); Neutrophils Percent Auto 45.8 % (50-75); Platelet Count 213 X10^3/uL (150-400); Red Blood Cell Count 4.63 X10^6/uL (4.5-5.9); White Blood Cell Count 8.7 X10^3/uL (4.5-11.0)
[2024-04-07 05:49] LABS: INR 1.1 (0.9-1.3); Prothrombin Time 12.3 SECONDS (9.4-12.5)
[2024-04-07 05:52] LABS: PTT Partial Thromboplastin Tim 38 SECONDS (25.1-36.5)
[2024-04-07 05:53] LABS: Alanine Aminotransferase 50 IU/L (<50); Albumin 4.5 g/dL (3.5-5.0); Albumin Globulin Ratio 1.4 (1.0-2.8); Alkaline Phosphatase 83 U/L (38-126); Aspartate Aminotransferase 53 IU/L (17-59); Bilirubin Total 0.8 mg/dL (0.2-1.3); Blood Urea Nitrogen 15 mg/dL (9-20); Calcium 9.6 mg/dL (8.4-10.2); Carbon Dioxide 26 mmol/L (22-32); Chloride 102 mmol/L (98-107); Creatine Kinase 226 U/L (55-170); Estimated Glomerular Filt Rate > 60 mL/min (>60); Globulin 3.3 g/dL (1.7-4.1); Glucose 167 mg/dL (70-100); HEMOLYSIS 16 (0-50); Lipase 141 U/L (23-300); Magnesium 1.5 mg/dL (1.6-2.3); Potassium 4.5 mmol/L (3.4-5.1); Sodium 136 mmol/L (137-145); Total Protein 7.8 g/dL (6.3-8.2)
--- NOTE | 2024-04-07 06:04 | ED.CHESTPAIN ---
HPI - Chest Pain <Idris Lock MD - Last Filed: 04/07/24 13:29> General Chief Complaint: Chest Pain Stated Complaint: thinks heart attack Time Seen by Provider: 04/07/24 05:35 Source: patient Mode of arrival: Ambulatory History of Present Illness HPI narrative: 58-year-old male with history of atrial fibrillation 1st known 10 years ago, he had been out of atrial fibrillation he believes for the last couple of years, still taking Eliquis anticoagulation, denies missed doses, last dose last night, early this morning 4:00 a.m. felt like he went back into atrial fibrillation, with somewhat fast rate, slight nausea, no emesis, no diaphoresis. He had some central chest discomfort, no discomfort to the back, neck, jaw, arms, legs. He has had cardioversion in the past, he would like cardioversion. He is followed by local assistant to the ceo Dr. Dunbar. Related Data Home Medications Medication Instructions Recorded Confirmed liraglutide 0.6 mg/0.1 mL (18 mg/3 1.8 mg SQ QAM ##0 09/21/16 04/25/18 mL) subcutaneous pen injector (Victoza 2-Lanre) losartan 50 mg tablet 50 mg PO QDAY ##0 09/21/16 04/07/24 melatonin 10 mg capsule 20 mg PO HS PRN Sleep ##0 09/21/16 04/07/24 metformin 500 mg tablet 2 tab PO BID ##0 09/21/16 04/07/24 (Glucophage) omeprazole 20 mg capsule,delayed 20 mg PO PRN PRN Acid Reflux ##0 09/21/16 04/07/24 release insulin glargine 100 unit/mL (3 40 unit SUBCUT DAILY 04/05/18 04/07/24 mL) subcutaneous pen Previous Rx's Medication Instructions Recorded oxycodone-acetaminophen 5 mg-325 1 tab PO Q4-6H PRN pain #30 tabs 04/06/18 mg tablet hydrocodone 5 mg-acetaminophen 325 1 tab PO Q4-6H PRN pain #5 tabs 06/06/19 mg tablet (Martelle) apixaban 5 mg tablet 5 mg PO BID #60 tabs 08/09/20 Allergies Allergy/AdvReac Type Severity Reaction Status Date / Time Penicillins [PENICILLINS] Allergy RASH Verified 02/09/21 09:13 Patient History <Idris Lock MD - Last Filed: 04/07/24 13:29> Medical History (Updated 04/07/24 @ 06:42 by Idris Lock MD) Hypertension Gastroesophageal reflux disease Diabetes Paroxysmal atrial fibrillation Social History marital status: household members: spouse occupational status: employed Smoking Status: Never smoker substance use type: does not use Smoking Status: Never smoker alcohol intake frequency: holidays/special occasions only Exam <Idris Lock MD - Last Filed: 04/07/24 13:29> Narrative Exam Narrative: GENERAL: Well-developed patient, in mild distress. HEAD: Atraumatic. Normocephalic. EYES: Pupils equal round and reactive. Extraocular motions intact. No scleral icterus. No injection or drainage. ENT: Nose without bleeding, purulent drainage. Throat without erythema, tonsillar hypertrophy or exudate. Airway patent. NECK: Trachea midline. Non tender CARDIOVASCULAR: Irregularly irregular, without murmurs, gallops, or rubs. RESPIRATORY: Clear to auscultation. Breath sounds equal bilaterally. No wheezes, rales, or rhonchi. GASTROINTESTINAL: Abdomen soft, non-tender, nondistended. EXTREMITIES: No edema or joint tenderness. BACK: Nontender without deformity or crepitance. No flank tenderness. NEURO: AOx3. Motor functions grossly nonfocal SKIN: No rash or erythema of visible areas Initial Vital Signs Initial Vital Signs: Vital Signs Pulse Rate 102 H 04/07/24 05:32 Pulse Oximetry 96 04/07/24 05:32 <Tita Mckee DO - Last Filed: 04/07/24 11:22> Initial Vital Signs Initial Vital Signs: Vital Signs Pulse Rate 102 H 04/07/24 05:32 Pulse Oximetry 96 04/07/24 05:32 Course <Idris Lock MD - Last Filed: 04/07/24 13:29> Orders Ordered: ED Orders 04/07/24 05:29 EKG-12 Lead Stat 04/07/24 05:31 XR chest 1V Stat 04/07/24 05:33 Complete Blood Count AUTO DIFF Stat Comprehensive Metabolic Panel Stat Lipase Stat Magnesium Stat NT-proBNP (BNP-Adult 18+) Stat PTT Partial Thromboplastin Patrick Stat Prothrombin Time INR Stat Troponin & CK Cardiac Panel Stat 04/07/24 09:59 EKG-12 Lead Routine Discontinued Medications Apixaban (Apixaban 5 Mg Tablet) 5 mg PO NOW ONE Stop: 04/07/24 08:57 Last Admin: 04/07/24 09:26 Dose: 5 mg Documented By: ANIL Aspirin (Aspirin 81 Mg Chew Tab) 324 mg PO NOW ONE Stop: 04/07/24 05:32 Last Admin: 04/07/24 05:38 Dose: 324 mg Documented By: SCOTT Diltiazem HCl (Diltiazem 25 Mg/5 Ml Sdv) 20 mg IV NOW ONE Stop: 04/07/24 06:44 Last Admin: 04/07/24 06:53 Dose: 20 mg Documented By: DEVI Diltiazem HCl (Diltiazem Cd 120 Mg Cap) 120 mg PO NOW ONE Stop: 04/07/24 08:57 Last Admin: 04/07/24 09:26 Dose: 120 mg Documented By: ANIL Etomidate (Etomidate 2 Mg/Ml 10 Ml Vial) 10 mg IV NOW ONE Stop: 04/07/24 06:18 Last Admin: 04/07/24 06:36 Dose: 10 mg Documented By: DEVI Diltiazem HCl 125 mg/ Sodium (Chloride) 125 mls @ 5 mls/hr IV TITRATE SANCHO; Protocol Last Titration: 04/07/24 09:15 Dose: Infused Documented By: Admin: 04/07/24 07:25 Dose: 5 mg/hr, 5 mls/hr Documented By: ANIL Magnesium Sulfate (Magnesium Sulfate) 2 gm in 50 mls @ 150 mls/hr IV NOW ONE Stop: 04/07/24 07:13 Last Infusion: 04/07/24 07:16 Dose: Infused Documented By: DEVI Co-signed By: ANIL Admin: 04/07/24 06:59 Dose: 150 mls/hr Documented By: DEVI Co-signed By: Lorazepam (Lorazepam 2 Mg/Ml Inj) 2 mg IV NOW ONE Stop: 04/07/24 06:41 Last Admin: 04/07/24 06:43 Dose: Not Given Documented By: Lorazepam (Lorazepam 2 Mg/Ml Inj) 1 mg IV NOW ONE Stop: 04/07/24 06:43 Last Admin: 04/07/24 06:42 Dose: 1 mg Documented By: LS Vital Signs Vital signs: Vital Signs - 8 hr 04/07/24 05:32 04/07/24 05:35 04/07/24 06:00 Pulse Rate 102 H 91 H Respiratory Rate 16 Blood Pressure 191/104 H 161/78 H Pulse Oximetry 96 94 Oxygen Delivery Method Room Air Oxygen Flow Rate 04/07/24 06:00 04/07/24 06:30 04/07/24 06:31 Pulse Rate 104 H 124 H 121 H Respiratory Rate 15 22 26 H Blood Pressure Pulse Oximetry 93 95 94 Oxygen Delivery Method Nasal Cannula Oxygen Flow Rate 1 04/07/24 06:31 04/07/24 06:38 04/07/24 06:38 Pulse Rate 147 H Respiratory Rate 28 H Blood Pressure 157/112 H 134/90 Pulse Oximetry 98 Oxygen Delivery Method Nasal Cannula Oxygen Flow Rate 1 04/07/24 06:40 04/07/24 06:40 04/07/24 06:43 Pulse Rate 145 H Respiratory Rate 22 Blood Pressure 151/107 H 173/89 H Pulse Oximetry 98 Oxygen Delivery Method Nasal Cannula Oxygen Flow Rate 1 04/07/24 06:43 04/07/24 06:45 04/07/24 06:45 Pulse Rate 130 H 126 H Respiratory Rate 16 9 L Blood Pressure 142/87 H Pulse Oximetry 98 97 Oxygen Delivery Method Nasal Cannula Nasal Cannula Oxygen Flow Rate 1 1 04/07/24 06:48 04/07/24 06:48 04/07/24 06:50 Pulse Rate 111 H Respiratory Rate 17 Blood Pressure 128/81 123/80 Pulse Oximetry 96 Oxygen Delivery Method Nasal Cannula Oxygen Flow Rate 1 04/07/24 06:50 04/07/24 06:53 04/07/24 06:53 Pulse Rate 108 H 121 H Respiratory Rate 12 19 Blood Pressure 138/93 H Pulse Oximetry 97 96 Oxygen Delivery Method Nasal Cannula Nasal Cannula Oxygen Flow Rate 1 1 04/07/24 06:55 04/07/24 06:55 04/07/24 06:58 Pulse Rate 101 H Respiratory Rate 18 Blood Pressure 126/77 121/67 Pulse Oximetry 97 Oxygen Delivery Method Nasal Cannula Oxygen Flow Rate 1 04/07/24 06:58 04/07/24 07:00 04/07/24 07:00 Pulse Rate 92 H 83 Respiratory Rate 21 16 Blood Pressure 125/67 Pulse Oximetry 95 95 Oxygen Delivery Method Nasal Cannula Nasal Cannula Oxygen Flow Rate 1 1 04/07/24 07:03 04/07/24 07:03 04/07/24 07:05 Pulse Rate 79 Respiratory Rate 17 Blood Pressure 108/66 106/66 Pulse Oximetry 95 Oxygen Delivery Method Oxygen Flow Rate 04/07/24 07:05 04/07/24 07:08 04/07/24 07:08 Pulse Rate 77 69 Respiratory Rate 19 16 Blood Pressure 118/74 Pulse Oximetry 95 95 Oxygen Delivery Method Nasal Cannula Oxygen Flow Rate 1 04/07/24 07:10 04/07/24 07:10 04/07/24 07:20 Pulse Rate 67 Respiratory Rate 17 Blood Pressure 100/65 113/71 Pulse Oximetry 95 Oxygen Delivery Method Oxygen Flow Rate 04/07/24 07:20 04/07/24 07:25 04/07/24 07:30 Pulse Rate 70 62 Respiratory Rate 11 L Blood Pressure 113/71 116/69 Pulse Oximetry 97 Oxygen Delivery Method Nasal Cannula Oxygen Flow Rate 1 04/07/24 07:30 04/07/24 07:45 04/07/24 07:45 Pulse Rate 74 79 Respiratory Rate 19 16 Blood Pressure 121/74 Pulse Oximetry 96 97 Oxygen Delivery Method Nasal Cannula Oxygen Flow Rate 1 04/07/24 08:00 04/07/24 08:00 04/07/24 08:15 Pulse Rate 77 77 Respiratory Rate 15 17 Blood Pressure 127/65 Pulse Oximetry 98 98 Oxygen Delivery Method Nasal Cannula Oxygen Flow Rate 1 04/07/24 08:15 04/07/24 08:30 04/07/24 08:30 Pulse Rate 81 Respiratory Rate 16 Blood Pressure 127/69 123/75 Pulse Oximetry 95 Oxygen Delivery Method Oxygen Flow Rate 04/07/24 09:00 04/07/24 09:00 04/07/24 09:30 Pulse Rate 99 H 77 Respiratory Rate 12 15 Blood Pressure 136/73 Pulse Oximetry 98 Oxygen Delivery Method Room Air Oxygen Flow Rate 04/07/24 09:30 04/07/24 10:00 04/07/24 10:00 Pulse Rate 83 Respiratory Rate 12 Blood Pressure 116/76 116/76 Pulse Oximetry Oxygen Delivery Method Oxygen Flow Rate <Tita Mckee, - Last Filed: 04/07/24 11:22> Orders Ordered: ED Orders 04/07/24 05:29 EKG-12 Lead Stat 04/07/24 05:31 XR chest 1V Stat 04/07/24 05:33 Complete Blood Count AUTO DIFF Stat Comprehensive Metabolic Panel Stat Lipase Stat Magnesium Stat NT-proBNP (BNP-Adult 18+) Stat PTT Partial Thromboplastin Patrick Stat Prothrombin Time INR Stat Troponin & CK Cardiac Panel Stat 04/07/24 09:59 EKG-12 Lead Routine Discontinued Medications Apixaban (Apixaban 5 Mg Tablet) 5 mg PO NOW ONE Stop: 04/07/24 08:57 Last Admin: 04/07/24 09:26 Dose: 5 mg Documented By: ANIL Aspirin (Aspirin 81 Mg Chew Tab) 324 mg PO NOW ONE Stop: 04/07/24 05:32 Last Admin: 04/07/24 05:38 Dose: 324 mg Documented By: SCOTT Diltiazem HCl (Diltiazem 25 Mg/5 Ml Sdv) 20 mg IV NOW ONE Stop: 04/07/24 06:44 Last Admin: 04/07/24 06:53 Dose: 20 mg Documented By: DEVI Diltiazem HCl (Diltiazem Cd 120 Mg Cap) 120 mg PO NOW ONE Stop: 04/07/24 08:57 Last Admin: 04/07/24 09:26 Dose: 120 mg Documented By: ANIL Etomidate (Etomidate 2 Mg/Ml 10 Ml Vial) 10 mg IV NOW ONE Stop: 04/07/24 06:18 Last Admin: 04/07/24 06:36 Dose: 10 mg Documented By: DEVI Diltiazem HCl 125 mg/ Sodium (Chloride) 125 mls @ 5 mls/hr IV TITRATE SANCHO; Protocol Last Titration: 04/07/24 09:15 Dose: Infused Documented By: Admin: 04/07/24 07:25 Dose: 5 mg/hr, 5 mls/hr Documented By: ANIL Magnesium Sulfate (Magnesium Sulfate) 2 gm in 50 mls @ 150 mls/hr IV NOW ONE Stop: 04/07/24 07:13 Last Infusion: 04/07/24 07:16 Dose: Infused Documented By: DEVI Co-signed By: ANIL Admin: 04/07/24 06:59 Dose: 150 mls/hr Documented By: DEVI Co-signed By: Lorazepam (Lorazepam 2 Mg/Ml Inj) 2 mg IV NOW ONE Stop: 04/07/24 06:41 Last Admin: 04/07/24 06:43 Dose: Not Given Documented By: Lorazepam (Lorazepam 2 Mg/Ml Inj) 1 mg IV NOW ONE Stop: 04/07/24 06:43 Last Admin: 04/07/24 06:42 Dose: 1 mg Documented By: LS Vital Signs Vital signs: Vital Signs - 8 hr 04/07/24 05:32 04/07/24 05:35 04/07/24 06:00 Pulse Rate 102 H 91 H Respiratory Rate 16 Blood Pressure 191/104 H 161/78 H Pulse Oximetry 96 94 Oxygen Delivery Method Room Air Oxygen Flow Rate 04/07/24 06:00 04/07/24 06:30 04/07/24 06:31 Pulse Rate 104 H 124 H 121 H Respiratory Rate 15 22 26 H Blood Pressure Pulse Oximetry 93 95 94 Oxygen Delivery Method Nasal Cannula Oxygen Flow Rate 1 04/07/24 06:31 04/07/24 06:38 04/07/24 06:38 Pulse Rate 147 H Respiratory Rate 28 H Blood Pressure 157/112 H 134/90 Pulse Oximetry 98 Oxygen Delivery Method Nasal Cannula Oxygen Flow Rate 1 04/07/24 06:40 04/07/24 06:40 04/07/24 06:43 Pulse Rate 145 H Respiratory Rate 22 Blood Pressure 151/107 H 173/89 H Pulse Oximetry 98 Oxygen Delivery Method Nasal Cannula Oxygen Flow Rate 1 04/07/24 06:43 04/07/24 06:45 04/07/24 06:45 Pulse Rate 130 H 126 H Respiratory Rate 16 9 L Blood Pressure 142/87 H Pulse Oximetry 98 97 Oxygen Delivery Method Nasal Cannula Nasal Cannula Oxygen Flow Rate 1 1 04/07/24 06:48 04/07/24 06:48 04/07/24 06:50 Pulse Rate 111 H Respiratory Rate 17 Blood Pressure 128/81 123/80 Pulse Oximetry 96 Oxygen Delivery Method Nasal Cannula Oxygen Flow Rate 1 04/07/24 06:50 04/07/24 06:53 04/07/24 06:53 Pulse Rate 108 H 121 H Respiratory Rate 12 19 Blood Pressure 138/93 H Pulse Oximetry 97 96 Oxygen Delivery Method Nasal Cannula Nasal Cannula Oxygen Flow Rate 1 1 04/07/24 06:55 04/07/24 06:55 04/07/24 06:58 Pulse Rate 101 H Respiratory Rate 18 Blood Pressure 126/77 121/67 Pulse Oximetry 97 Oxygen Delivery Method Nasal Cannula Oxygen Flow Rate 1 04/07/24 06:58 04/07/24 07:00 04/07/24 07:00 Pulse Rate 92 H 83 Respiratory Rate 21 16 Blood Pressure 125/67 Pulse Oximetry 95 95 Oxygen Delivery Method Nasal Cannula Nasal Cannula Oxygen Flow Rate 1 1 04/07/24 07:03 04/07/24 07:03 04/07/24 07:05 Pulse Rate 79 Respiratory Rate 17 Blood Pressure 108/66 106/66 Pulse Oximetry 95 Oxygen Delivery Method Oxygen Flow Rate 04/07/24 07:05 04/07/24 07:08 04/07/24 07:08 Pulse Rate 77 69 Respiratory Rate 19 16 Blood Pressure 118/74 Pulse Oximetry 95 95 Oxygen Delivery Method Nasal Cannula Oxygen Flow Rate 1 04/07/24 07:10 04/07/24 07:10 04/07/24 07:20 Pulse Rate 67 Respiratory Rate 17 Blood Pressure 100/65 113/71 Pulse Oximetry 95 Oxygen Delivery Method Oxygen Flow Rate 04/07/24 07:20 04/07/24 07:25 04/07/24 07:30 Pulse Rate 70 62 Respiratory Rate 11 L Blood Pressure 113/71 116/69 Pulse Oximetry 97 Oxygen Delivery Method Nasal Cannula Oxygen Flow Rate 1 04/07/24 07:30 04/07/24 07:45 04/07/24 07:45 Pulse Rate 74 79 Respiratory Rate 19 16 Blood Pressure 121/74 Pulse Oximetry 96 97 Oxygen Delivery Method Nasal Cannula Oxygen Flow Rate 1 04/07/24 08:00 04/07/24 08:00 04/07/24 08:15 Pulse Rate 77 77 Respiratory Rate 15 17 Blood Pressure 127/65 Pulse Oximetry 98 98 Oxygen Delivery Method Nasal Cannula Oxygen Flow Rate 1 04/07/24 08:15 04/07/24 08:30 04/07/24 08:30 Pulse Rate 81 Respiratory Rate 16 Blood Pressure 127/69 123/75 Pulse Oximetry 95 Oxygen Delivery Method Oxygen Flow Rate 04/07/24 09:00 04/07/24 09:00 04/07/24 09:30 Pulse Rate 99 H 77 Respiratory Rate 12 15 Blood Pressure 136/73 Pulse Oximetry 98 Oxygen Delivery Method Room Air Oxygen Flow Rate 04/07/24 09:30 04/07/24 10:00 04/07/24 10:00 Pulse Rate 83 Respiratory Rate 12 Blood Pressure 116/76 116/76 Pulse Oximetry Oxygen Delivery Method Oxygen Flow Rate MDM - Chest Pain <Idris Lock MD - Last Filed: 04/07/24 13:29> Lab Data Attestation: I reviewed the patient's lab results. Lab results narrative: White blood cell count 8700, hemoglobin 14.8, platelets adequate. Basic metabolic panel unremarkable. Mild transaminitis, otherwise LFTs normal. Lipase normal 04/07/24 05:33 04/07/24 05:33 Labs: Lab Results 04/07/24 Range/Units 05:33 WBC 8.7 (4.5-11.0) X10^3/uL RBC 4.63 (4.5-5.9) X10^6/uL Hgb 14.8 (13.5-17.5) g/dL Hct 43.7 (41-53) % MCV 94.3 (80-100) fL MCH 31.9 (26-34) PG MCHC 33.8 (30-36) % RDW 13.0 (11.6-14.8) % Plt Count 213 (150-400) X10^3/uL Neut % (Auto) 45.8 L (50-75) % Lymph % (Auto) 39.5 (25-40) % Mcmullen % (Auto) 9.7 (3-14) % Eos % (Auto) 4.3 H (2-4) % Baso % (Auto) 0.7 (0-2) % Neut # (Auto) 4000 (5271-1228) /uL Lymph # (Auto) 3400 (4703-4439) /uL Mcmullen # (Auto) 800 (0-900) /uL Eos # (Auto) 400 (0-450) /uL Baso # (Auto) 100 (0-100) /uL PT 12.3 (9.4-12.5) SECONDS INR 1.1 (0.9-1.3) APTT 38 H (25.1-36.5) SECONDS Sodium 136 L (137-145) mmol/L Potassium 4.5 (3.4-5.1) mmol/L Chloride 102 (98-107) mmol/L Carbon Dioxide 26 (22-32) mmol/L BUN 15 (9-20) mg/dL Creatinine 0.88 (0.66-1.25) mg/dL Estimated GFR > 60 (>60) mL/min BUN/Creatinine Ratio 17.0 (6-22) Glucose 167 H (70-100) mg/dL Calcium 9.6 (8.4-10.2) mg/dL Magnesium 1.5 L (1.6-2.3) mg/dL Total Bilirubin 0.8 (0.2-1.3) mg/dL AST 53 (17-59) IU/L ALT 50 H (<50) IU/L Alkaline Phosphatase 83 (38-126) U/L Total Creatine Kinase 226 H (55-170) U/L Troponin I < 0.012 (0.01-0.034) ng/mL NT-Pro-B Natriuret Pep 22 (<125) pg/mL Total Protein 7.8 (6.3-8.2) g/dL Albumin 4.5 (3.5-5.0) g/dL Globulin 3.3 (1.7-4.1) g/dL Albumin/Globulin Ratio 1.4 (1.0-2.8) Lipase 141 (23-300) U/L ECG Data Attestation: I personally reviewed and interpreted this ECG as follows: Interpretation: Atrial fibrillation with rapid ventricular response, rate 109. Right bundle branch block pattern noted. No obvious ST segment elevation or depression changes. QRS 138, QTC 476. [facility] Narrative Medical decision making narrative: 58-year-old with history of atrial fibrillation, last episode 2 years ago, felt like he went into atrial fibrillation this morning 0400 with some chest discomfort. Request cardioversion, has had prior cardioversions. He mentioned that he felt everything with a prior IV propofol cardioversion. EKG shows atrial fibrillation with rate 109, no obvious ST segment elevation or depression changes. Troponin negative. Chest x-ray no acute changes, see teleradiology report. Consented for cardioversion, IVP etomidate 10 mg, synchronized 120 joules single shock, yelped, unsuccessful cardioversion with persisting AFib/RVR on monitor, patient exhibited bilateral fist clenching, no clonic tonic shaking, sedation wore off, kept clenching his fpcjm-auyoqia-hmai-left fist, IV Ativan 1 mg, returned to baseline mental status and motor function. No further cardioversion attempts. Patient then seemed to be able to relax and returned to baseline. AFib RVR noted. IV diltiazem bolus, then IV diltiazem infusion. Magnesium 1.5 low, IV magnesium ordered Titrate diltiazem for better rate control, may need admission. Signed out to oncoming ED shift physician Dr Mckee <Tita Mckee, DO - Last Filed: 04/07/24 11:22> Lab Data Labs: Lab Results 04/07/24 Range/Units 05:33 WBC 8.7 (4.5-11.0) X10^3/uL RBC 4.63 (4.5-5.9) X10^6/uL Hgb 14.8 (13.5-17.5) g/dL Hct 43.7 (41-53) % MCV 94.3 (80-100) fL MCH 31.9 (26-34) PG MCHC 33.8 (30-36) % RDW 13.0 (11.6-14.8) % Plt Count 213 (150-400) X10^3/uL Neut % (Auto) 45.8 L (50-75) % Lymph % (Auto) 39.5 (25-40) % Mcmullen % (Auto) 9.7 (3-14) % Eos % (Auto) 4.3 H (2-4) % Baso % (Auto) 0.7 (0-2) % Neut # (Auto) 4000 (9834-3537) /uL Lymph # (Auto) 3400 (9133-1658) /uL Mcmullen # (Auto) 800 (0-900) /uL Eos # (Auto) 400 (0-450) /uL Baso # (Auto) 100 (0-100) /uL PT 12.3 (9.4-12.5) SECONDS INR 1.1 (0.9-1.3) APTT 38 H (25.1-36.5) SECONDS Sodium 136 L (137-145) mmol/L Potassium 4.5 (3.4-5.1) mmol/L Chloride 102 (98-107) mmol/L Carbon Dioxide 26 (22-32) mmol/L BUN 15 (9-20) mg/dL Creatinine 0.88 (0.66-1.25) mg/dL Estimated GFR > 60 (>60) mL/min BUN/Creatinine Ratio 17.0 (6-22) Glucose 167 H (70-100) mg/dL Calcium 9.6 (8.4-10.2) mg/dL Magnesium 1.5 L (1.6-2.3) mg/dL Total Bilirubin 0.8 (0.2-1.3) mg/dL AST 53 (17-59) IU/L ALT 50 H (<50) IU/L Alkaline Phosphatase 83 (38-126) U/L Total Creatine Kinase 226 H (55-170) U/L Troponin I < 0.012 (0.01-0.034) ng/mL NT-Pro-B Natriuret Pep 22 (<125) pg/mL Total Protein 7.8 (6.3-8.2) g/dL Albumin 4.5 (3.5-5.0) g/dL Globulin 3.3 (1.7-4.1) g/dL Albumin/Globulin Ratio 1.4 (1.0-2.8) Lipase 141 (23-300) U/L Imaging Data Chest x-ray: Radiologist's Impression: PROCEDURE: XR CHEST 1V INDICATIONS: chest pain TECHNIQUE: One view of the chest was acquired. COMPARISON: [facility], , XR CHEST 1V, 06/18/2021, 5:38. [facility], , XR CHEST 1V, 04/07/2021, 20:28. FINDINGS: Surgical changes and devices: None. Lungs and pleura: Lungs are clear. No pleural effusions or pneumothorax. Mediastinum: Mediastinal contours appear normal. Heart size is normal. Bones and chest wall: No suspicious bony lesions. Overlying soft tissues appear unremarkable. IMPRESSION: No acute cardiopulmonary abnormality is seen. Agree with preliminary report. Dictated by: Tristen Sharma M.D. on 04/07/2024 at 6:55 Approved by: Tristen Sharma M.D. on 04/07/2024 at 6:56 ECG Data Interpretation: Atrial fibrillation with rapid ventricular response, rate 109. Right bundle branch block pattern noted. No obvious ST segment elevation or depression changes. QRS 138, QTC 476. EKG 2. Sinus rhythm rate 84 no ischemia right bundle-branch block noted MDM Narrative Medical decision making narrative: 58-year-old with history of atrial fibrillation, last episode 2 years ago, felt like he went into atrial fibrillation this morning 0400 with some chest discomfort. Request cardioversion, has had prior cardioversions. He mentioned that he felt everything with a prior IV propofol cardioversion. EKG shows atrial fibrillation with rate 109, no obvious ST segment elevation or depression changes. Troponin negative. Chest x-ray no acute changes, see teleradiology report. Consented for cardioversion, IVP etomidate 10 mg, synchronized 120 joules single shock, yelped, unsuccessful cardioversion with persisting AFib/RVR on monitor, patient exhibited bilateral fist clenching, no clonic tonic shaking, sedation wore off, kept clenching his wjhji-uijeroc-gcch-left fist, IV Ativan 1 mg, returned to baseline mental status and motor function. No further cardioversion attempts. Patient then seemed to be able to relax and returned to baseline. AFib RVR noted. IV diltiazem bolus, then IV diltiazem infusion. Magnesium 1.5 low, IV magnesium ordered Titrate diltiazem for better rate control, may need admission. [facility] 0900 DR. Mckee-patient signed out to me by Dr. Lock. I have seen evaluated patient myself. Patient does have history of atrial fibrillation on Eliquis and diltiazem. Cardioversion unsuccessful he was still tachycardic and placed on a Dilt drip. Heart rate now in the 80s but still in AFib. He has not taken his morning medication of Eliquis and p.o. diltiazem. Met this time will stop diltiazem drip give him p.o. medications attempt to rate control with oral meds and discharge. He was followed by Dr. Dunbar cardiology Patient actually self converted into a sinus rhythm. He reports feeling much better. At this time appropriate for discharge home Discharge Plan Departure Patient Disposition: Home Clinical Impression: Atrial fibrillation with rapid ventricular response Instructions: DI for Atrial Fibrillation Activity Restrictions/Additional Instructions: *You have been diagnosed with atrial fibrillation *What to do: At this time please follow up with Dr. Uribe. Please take medication as directed *Continue to take medications as directed *Follow up with your primary care provider in 2-3 days or call [phone] *Return to ER if you should have increasing heart palpitations heart rate greater than 120 chest pain shortness of [or] any new, worsening or concerning symptoms Prescriptions: No Action metformin [Glucophage] 500 MG tablet 2 tab PO BID Qty: 0 Victoza 2-Lanre 0.6 MG/0.1 ML pen injector 1.8 mg SQ QAM Qty: 0 losartan 50 MG tablet 50 mg PO QDAY Qty: 0 melatonin 10 MG capsule 20 mg PO HS PRN (Reason: Sleep) Qty: 0 omeprazole 20 MG capsule,delayed release(DR/EC) 20 mg PO PRN PRN (Reason: Acid Reflux) Qty: 0 insulin glargine 100 unit/mL (3 mL) Insulin Pen 40 unit SUBCUT DAILY oxycodone-acetaminophen 5-325 mg tablet 1 tab PO Q4-6H PRN (Reason: pain) Qty: 30 0RF hydrocodone-acetaminophen [Martelle] 5-325 mg tablet 1 tab PO Q4-6H PRN (Reason: pain) Qty: 5 0RF apixaban 5 mg tablet 5 mg PO BID Qty: 60 1RF Referrals: Baldomero Saeed MD [Primary Care Provider] - Mike Dunbar MD [Physician] - Stand Alone Forms: Patient Portal/API/Survey
[2024-04-07 06:05] LABS: NT-proBNP (BNP-Adult 18+) 22 pg/mL (<125); Troponin I < 0.012 ng/mL (0.01-0.034)
[2024-04-07] MEDS: ETOMIDATE 2 MG/ML 10 ML VIAL 10 MG IV (06:36)
[2024-04-07] MEDS: LORazepam 2 MG/ML INJ 1 MG IV (06:42)
[2024-04-07] MEDS: dilTIAZem 25 MG/5 ML SDV 20 MG IV (06:53)
[2024-04-07] MEDS: MAGNESIUM SULFATE 2 GM/50 ML PIGGYBACK IV (06:59)
[2024-04-07] MEDS: dilTIAZem 125 MG in SODIUM CHLORIDE 0.9% 100 ML IV (07:25)
[2024-04-07] MEDS: dilTIAZem CD 120 MG CAP PO (09:26)
[2024-04-07] MEDS: APIXABAN 5 MG TABLET PO (09:26)
--- NOTE | 2024-04-07 09:59 | EKG_ITS ---
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
== END 2024-04-07 10:16 | disposition home or self-care (01) ==
PROVIDERS: Emergency Medicine; Emergency Provider Emergency Medicine; PCP Internal Medicine
DX: I48.20 Chronic atrial fibrillation, unspecified (principal); Z79.01 Long term (current) use of anticoagulants; R11.0 Nausea; E11.9 Type 2 diabetes mellitus without complications; I45.10 Unspecified right bundle-branch block; Z79.84 Long term (current) use of oral hypoglycemic drugs
CPT/HCPCS: 36415; 71045; 80053; 82550; 83690; 83735; 83880; 84484; 85025; 85610; 85730; 92960; 93005; 93010; 96365; 96366; 96367; 96375; 99285; J2060; J3475

== ENCOUNTER 2024-04-14 21:56 | Emergency (ER) | payer OTHER, SELFPAY ==
[2018-04-05 06:13] VITALS: BMI 33.0
[2024-04-14 22:04] VITALS: BP 157/93; PULSE 100; RESP 17; TEMP 36.9; O2SAT 95; BMI 33.0
--- NOTE | 2024-04-14 22:11 | EKG_ITS ---
[facility] [address] [place] [address] Test Date: 2024-04-14 Pat Name: Kishan Aleman Department: [facility] Room: Gender: Male Rn Flight: : 1965 Requested By: Order Number: [id number] Reading MD: Jossue Llanos MD Measurements Intervals [place] Rate: 88 P: 32 [place]: 146 QRS: -40 QRSD: 136 T: -5 QT: 382 QTc: 462 Interpretive Statements Normal sinus rhythm Left axis deviation Right bundle branch block NO SIGNIFICANT CHANGE FROM PRIOR TRACING Electronically Signed On 04-15-2024 12:21:49 PST by Jossue Llanos MD
--- NOTE | 2024-04-15 04:05 | ED.NECK ---
HPI - Neck Pain/Injury General Chief Complaint: Neck Pain/Injury Stated Complaint: pain in neck and shoulder Time Seen by Provider: 04/15/24 03:20 Mode of arrival: Ambulatory History of Present Illness HPI Narrative: 58-year-old male with history of atrial fibrillation status post recent cardioversion attempt that was unsuccessful, then had IV diltiazem and converted and went home, now with left-sided neck pain and spasm and irritation to his superior neck. He took hydrocodone earlier today. He still has considerable left lateral neck pain. No interim new injury or activities. No numbness or tingling to the arm. No previous neck procedures or interventions. Related Data Home Medications Medication Instructions Recorded Confirmed losartan 50 mg tablet 50 mg PO QDAY ##0 09/21/16 04/07/24 melatonin 10 mg capsule 20 mg PO HS PRN Sleep ##0 09/21/16 04/07/24 metformin 500 mg tablet 2 tab PO BID ##0 09/21/16 04/07/24 (Glucophage) omeprazole 20 mg capsule,delayed 20 mg PO PRN PRN Acid Reflux ##0 09/21/16 04/07/24 release insulin glargine 100 unit/mL (3 40 unit SUBCUT DAILY 04/05/18 04/07/24 mL) subcutaneous pen insulin glargine-yfgn 100 unit/mL 70 unit SUBCUT DAILY 04/14/24 04/14/24 (3 mL) subcutaneous pen Previous Rx's Medication Instructions Recorded oxycodone-acetaminophen 5 mg-325 1 tab PO Q4-6H PRN pain #30 tabs 04/06/18 mg tablet hydrocodone 5 mg-acetaminophen 325 1 tab PO Q4-6H PRN pain #5 tabs 06/06/19 mg tablet ([place]) apixaban 5 mg tablet 5 mg PO BID #60 tabs 08/09/20 hydrocodone 5 mg-acetaminophen 325 1 tab PO Q6H PRN pain #10 tabs 04/15/24 mg tablet methocarbamol 500 mg tablet 500 mg PO TID 7 days #21 tabs 04/15/24 Allergies Allergy/AdvReac Type Severity Reaction Status Date / Time Penicillins [PENICILLINS] Allergy RASH Verified 04/14/24 22:08 Patient History Medical History (Updated 04/15/24 @ 05:54 by Idris Lock MD) Hypertension Gastroesophageal reflux disease Diabetes Paroxysmal atrial fibrillation Social History marital status: household members: spouse occupational status: employed Smoking Status: Never smoker substance use type: does not use Smoking Status: Never smoker alcohol intake frequency: holidays/special occasions only Exam Narrative Exam Narrative: GENERAL: Well-developed patient, in mild distress. HEAD: Atraumatic. Normocephalic. EYES: Pupils equal round and reactive. Extraocular motions intact. No scleral icterus. No injection or drainage. ENT: Nose without bleeding, purulent drainage. Throat without erythema, tonsillar hypertrophy or exudate. Airway patent. NECK: Trachea midline. No midline tenderness posterior, but some tenderness along the left lateral SCM, also superior trapezius CARDIOVASCULAR: Regular rate and rhythm currently seems to be in sinus rhythm, without murmurs, gallops, or rubs. RESPIRATORY: Clear to auscultation. Breath sounds equal bilaterally. No wheezes, rales, or rhonchi. GASTROINTESTINAL: Abdomen soft, non-tender, nondistended. EXTREMITIES: No edema or joint tenderness. Some tenderness and spasm to the left superior trapezius muscle. No tenderness along the anterior shoulder, deltoid insertion or lateral shoulder, AC joint, along clavicle, or along superior scapula, along rhomboids. BACK: Nontender without deformity or crepitance. No flank tenderness. NEURO: AOx3. Motor functions grossly nonfocal SKIN: No rash or erythema of visible areas Initial Vital Signs Initial Vital Signs: Vital Signs Temperature 98.4 F 04/14/24 22:04 Pulse Rate 100 H 04/14/24 22:04 Respiratory Rate 17 04/14/24 22:04 Blood Pressure 157/93 H 04/14/24 22:04 Pulse Oximetry 95 04/14/24 22:04 Oxygen Delivery Method Room Air 04/14/24 22:04 Course Orders Ordered: Discontinued Medications Hydrocodone Bitart/Acetaminophen (Hydrocodone/Acet 5/325 Prepack) 1 bottle MISC DIRECTED ONE Stop: 04/15/24 05:46 Last Admin: 04/15/24 06:12 Dose: 1 bottle Documented By: SCOTT Diazepam (Diazepam 10 Mg/2 Ml Syringe) 5 mg IV NOW ONE Stop: 04/15/24 04:15 Last Admin: 04/15/24 04:36 Dose: 5 mg Documented By: SCOTT Hydromorphone HCl (Hydromorphone 1 Mg Inj) 1 mg IV NOW ONE Stop: 04/15/24 04:15 Last Admin: 04/15/24 04:36 Dose: 1 mg Documented By: SCOTT Methocarbamol (Methocarbamol 500 Mg Tablet) 500 mg PO NOW ONE Stop: 04/15/24 05:46 Last Admin: 04/15/24 06:12 Dose: 500 mg Documented By: SCOTT Methocarbamol (Methocarbamol 500 Mg Tablet) 500 mg PO NOW ONE Stop: 04/15/24 05:52 Last Admin: 04/15/24 06:12 Dose: Not Given Documented By: SCOTT Ondansetron HCl (Ondansetron 4 Mg/2 Ml Inj) 4 mg IV NOW ONE Stop: 04/15/24 04:15 Last Admin: 04/15/24 04:36 Dose: 4 mg Documented By: SCOTT Vital Signs Vital signs: Vital Signs - 8 hr 04/14/24 22:04 Temperature 98.4 F Pulse Rate 100 H Respiratory Rate 17 Blood Pressure 157/93 H Pulse Oximetry 95 Oxygen Delivery Method Room Air MDM - Neck Pain/Injury ECG Data Attestation: I personally reviewed and interpreted this ECG as follows: Interpretation: Normal sinus rhythm with rate 88, no obvious ST segment elevation or depression changes. Right bundle branch block pattern noted. ID [id number], QRS 136, QTC 462. [facility] Narrative Medical decision making narrative: 58-year-old male as left lateral neck pain without trauma, feels quite stiff on that side with any movement, muscle spasm present. He can not recall any injury. No paresthesias to the left arm. No posterior central neck pain. No numbness or weakness to the legs, able to walk. No prior neck surgeries or interventions. IV Valium, IV Dilaudid. Patient seems more comfortable appearing, we will give oral Robaxin and hydrocodone. Prescriptions sent to his pharmacy. We will avoid NSAIDs for now given chronic anticoagulation Eliquis. Home with who will drive, informed not to operate machinery or drive while on sedating medications. Recheck advised with his regular doctor on Wednesday if symptoms persist. Return precautions Discharge Plan Departure Patient Disposition: Home Clinical Impression: Cervical strain, Spasm of left trapezius muscle Activity Restrictions/Additional Instructions: Left lateral neck and superior left trapezius pain strain by exam, quite uncomfortable. IV pain medications and muscle relaxant was given. Trial of oral Robaxin muscle relaxant. Avoid NSAIDs while on anticoagulant therapies. Pain medication hydrocodone/acetaminophen also prescribed as home pack, prescription sent to your pharmacy. Take pain medications and muscle relaxant as directed. Recheck symptoms with your regular doctor if still persisting on Wednesday. Return earlier to this/nearest emergency department for any change worsening symptoms or any concerns prior. Avoid driving and use of machinery while taking potentially sedating medication such as pain relievers and muscle relaxant. Do not drink alcohol while taking these medications. Thank you for allowing our team to take care of you today. Prescriptions: New methocarbamol 500 mg tablet 500 mg PO TID 7 Days Qty: 21 0RF hydrocodone-acetaminophen 5-325 mg tablet 1 tab PO Q6H PRN (Reason: pain) Qty: 10 0RF No Action metformin [Glucophage] 500 MG tablet 2 tab PO BID Qty: 0 losartan 50 MG tablet 50 mg PO QDAY Qty: 0 melatonin 10 MG capsule 20 mg PO HS PRN (Reason: Sleep) Qty: 0 omeprazole 20 MG capsule,delayed release(DR/EC) 20 mg PO PRN PRN (Reason: Acid Reflux) Qty: 0 insulin glargine-yfgn 100 unit/mL (3 mL) insulin pen 70 unit SUBCUT DAILY insulin glargine 100 unit/mL (3 mL) Insulin Pen 40 unit SUBCUT DAILY oxycodone-acetaminophen 5-325 mg tablet 1 tab PO Q4-6H PRN (Reason: pain) Qty: 30 0RF hydrocodone-acetaminophen [[place]] 5-325 mg tablet 1 tab PO Q4-6H PRN (Reason: pain) Qty: 5 0RF apixaban 5 mg tablet 5 mg PO BID Qty: 60 1RF Referrals: Baldomero Saeed MD [Primary Care Provider] - Stand Alone Forms: Patient Portal/API/Survey
--- NOTE | 2024-04-15 04:08 | PC.NURSE ---
Dr Lock in to evaluate pt
[2024-04-15] MEDS: ONDANSETRON 4 MG/2 ML INJ IV (04:36)
[2024-04-15] MEDS: diazePAM 10 MG/2 ML SYRINGE 5 MG IV (04:36)
[2024-04-15] MEDS: HYDROMORPHONE 1 MG INJ IV (04:36)
--- NOTE | 2024-04-15 04:42 | PC.NURSE ---
pt started feeling relief before meds completed, assisted pt to lay down on stretcher and O2 sat monitor placed on pt
[2024-04-15] MEDS: HYDROCODONE/ACET 5/325 PREPACK 1 BOTTLE MISC (06:12)
[2024-04-15] MEDS: methocarbamoL 500 MG TABLET PO (06:12)
[2024-04-15 06:26] VITALS: BP 124/71; PULSE 89; RESP 16; O2SAT 95
== END 2024-04-15 06:28 | disposition home or self-care (01) ==
PROVIDERS: Emergency Provider Emergency Medicine; PCP Internal Medicine
DX: S16.1XXA Strain of muscle, fascia and tendon at neck level, initial encounter (principal); M62.838 Other muscle spasm; R07.9 Chest pain, unspecified; X58.XXXA Exposure to other specified factors, initial encounter
CPT/HCPCS: 93005; 93010; 96374; 96375; 99284; J1171; J2405; J3360

== ENCOUNTER → 2024-05-15 08:37 | Outpatient (CLI) | payer OTHER, SELFPAY ==
[2018-04-05 06:13] VITALS: BMI 33.0
--- NOTE | 2024-05-15 08:38 | DI.ECHO.S_ITS ---
[place] +---------+ Hospital : : [id number] : [address] : : [id number] : : Phone: [phone] Echocardiogram Report + + :Name: SANDY LEVINE Study Date: 05/15/2024 Height: 71 in : :Hospital ReadingLocation: Weight: 230 lb : : Gender: Male BSA: 2.2 m2 : :: 1965 Age: 58 yrs BP: 123/89 mmHg: :Reason For Study: ASCENDING AORTA ENLARGEMENT : :Ordering Physician: YANETH, : :MIKEY Performed By: Megan Galvez : :Referring: MIKEY DUNBAR : + + Interpretation Summary 1) Normal left ventricular thickness and size with low normal systolic function (EF 50-55%). 2) Normal right ventricular size and function. 3) There is mild aortic regurgitation. 4) The aortic root is mildly to moderately dilated at 4.3cm. 5) Compared to the Echo done 06/17/2023, no significant change. Procedure: A two-dimensional transthoracic echocardiogram with color flow and Doppler was performed. The study quality was technically adequate. Comparison is made with the echocardiogram of 06/17/2023. The patient was in sinus rhythm with heart rates between 63-74 bpm during the exam. Left Ventricle: The left ventricle is normal in size and wall thickness. The ejection fraction is estimated to be 50-55%. There are no focal wall motion abnormalities. Diastolic parameters suggest a relaxation abnormality of the left ventricle, consistent with probable normal filling pressures. Right Ventricle: The right ventricle is normal in size and function. Atria: The left atrial size is normal. Right atrial size is normal. There is no Doppler evidence for an interatrial shunt. Mitral Valve: The mitral valve leaflets appear to open well. There is mild mitral regurgitation. Aortic Valve: The aortic valve is trileaflet. The aortic valve opens well. There is no aortic valve stenosis. There is mild aortic regurgitation. Tricuspid Valve: The tricuspid valve leaflets are thin and pliable. There is mild tricuspid regurgitation. The right ventricular systolic pressure is estimated to be at least 20 mmHg based on an estimated right atrial pressure of 3 mm Hg. Pulmonic Valve: The pulmonic valve leaflets are thin and pliable; valve motion is normal. There is mild pulmonic regurgitation. Great Vessels: The aortic root is mildly to moderately dilated at 4.3 cm. The ascending aorta is mildly enlarged. The IVC is of normal diameter and collapses greater than 50% with a sniff. This suggests a low right atrial pressure of 3 mm Hg. Pericardium/ Pleura There is no pericardial effusion. There is no pleural effusion. MMode/2D Measurements & Calculations LVIDd: 5.6 cm LVOT diam: 2.3 cm LVIDs: 3.9 cm Ao root diam: 4.3 cm FS: 29.1 % asc Aorta Diam: 3.8 cm EPSS: 1.4 cm Ao Arch Diam (Prox Trans): 3.1 cm IVSd: 0.77 cm LVPWd: 0.77 cm LV chapman. diameter/BSA (cm/m^2): 2.5 LV sys. diameter/BSA (cm/m^2): 1.8 LA A2 area: 26.3 cm2 RA long axis: 4.7 cm LA A4 area: 14.4 cm2 RA area: 12.3 cm2 LA length (vol): 5.0 cm RA vol: 27.4 ml LA vol: 64.2 ml RA : 12.3 ml/m2 LA vol index: 28.7 ml/m2 IVC diam: 1.3 cm RVD1 (basal): 3.3 cm TAPSE: 1.8 cm Doppler Measurements & Calculations Ao V2 max: 100.9 cm/sec LVOT Max Stu: 78.7 cm/sec Ao V2 mean: 73.4 cm/sec LV V1 max P.5 mmHg Ao max P.1 mmHg LV V1 VTI: 16.6 cm Ao mean P.3 mmHg VON(I,D): 3.3 cm2 Ao V2 VTI: 21.2 cm VON(V,D): 3.3 cm2 sev ratio: 0.78 VON indexed to BSA (cm^2/m^2): 1.5 MV E max stu: 55.1 cm/sec TR max stu: 207.8 cm/sec MV A max stu: 56.0 cm/sec TR max P.3 mmHg MV E/A: 0.98 PA V2 max: 88.8 cm/sec Med Peak E' Stu: 6.1 cm/sec PA V2 mean: 60.1 cm/sec E/E' med: 9.1 PA mean P.6 mmHg Lat Peak E' Stu: 9.1 cm/sec PA pr(Accel): 30.2 mmHg E/E' lat: 6.1 E/e' average: 7.6 MV dec time: 0.19 sec Pulm A Revs Stu: 23.7 cm/sec SV(LVOT): 70.5 ml Pulm A Revs Dur: 0.15 sec Reading Physician:12:[id number] PM
== END ==
PROVIDERS: PCP Internal Medicine; Referring Provider Internal Medicine Cardiovascular Disease; Visit Provider Internal Medicine Cardiovascular Disease
DX: I08.3 Combined rheumatic disorders of mitral, aortic and tricuspid valves (principal); I77.810 Thoracic aortic ectasia; I77.89 Other specified disorders of arteries and arterioles
CPT/HCPCS: 93306

== ENCOUNTER 2024-07-06 17:15 | Emergency (ER) | payer OTHER, SELFPAY ==
[2018-04-05 06:13] VITALS: BMI 33.0
[2024-07-06 17:43] VITALS: BP 129/86; PULSE 100; RESP 20; TEMP 37.2; O2SAT 96; BMI 33.0
--- NOTE | 2024-07-06 17:48 | DI.RAD.S_ITS ---
PROCEDURE: XR CHEST 2V INDICATIONS: r/o pna TECHNIQUE: 2 views of the chest were acquired. COMPARISON: [facility], CR, XR CHEST 1V, 04/07/2024, 5:29. [facility], CR, XR CHEST 1V, 06/18/2021, 5:38. FINDINGS: Surgical changes and devices: None. Lungs and pleura: Lungs are clear. No pleural effusions or pneumothorax. Mediastinum: Mediastinal contours are normal. Heart size is normal. Bones and chest wall: No suspicious bony abnormalities. Soft tissues appear unremarkable. IMPRESSION: No acute cardiopulmonary abnormality is seen. Dictated by: Demian Campbell M.D. on 07/06/2024 at 18:27 Approved by: Demian Campbell M.D. on 07/06/2024 at 18:27
[2024-07-06 18:33] LABS: Influenza A - CEPHEID Flu A NEGATIVE (NEGATIVE); Influenza B - CEPHEID Flu B NEGATIVE (NEGATIVE); Respiratory Syncytial Virus Negative (Negative)
[2024-07-06 18:50] LABS: COVID-19 CEPHEID 4-PLEX PCR Negative (Negative)
[2024-07-06 21:09] VITALS: BP 131/86; PULSE 98; O2SAT 95
[2024-07-06 21:10] VITALS: BP 123/82; PULSE 100; PULSE 95; RESP 20; TEMP 37; O2SAT 95; O2SAT 96
[2024-07-06 21:30] VITALS: BP 114/72; PULSE 107; O2SAT 94
[2024-07-06 22:00] VITALS: BP 121/77; PULSE 92; RESP 18; O2SAT 94
== END 2024-07-06 22:27 | disposition left against medical advice (07) ==
PROVIDERS: Emergency Medicine; Emergency Provider Student in an Organized Health Care Education/Training Program; PCP Internal Medicine
DX: R06.02 Shortness of breath (principal)
CPT/HCPCS: 0241U; 71046; 99281